=== PATIENT | male | born 1940 | race Caucasian/White ===

== ENCOUNTER 2022-03-27 03:13 | Inpatient (IN) ==
[2022-03-27] MEDS ORDERED: SODIUM CHLORIDE 0.9% 500 ML IV STA (03:30)
--- NOTE | 2022-03-27 03:34 | Emergency Department Note ---
Impression & Plan Liver lesion ADMIT ED Provider Note HPI: The patient is an 81-year-old gentleman with distant history of non-Hodgkin's lymphoma, he has not been on chemo or radiation therapy for approximately the past 10 years according to the patient, presents the emergency department chief complaint of lower abdominal pain. Patient states he was also having some difficulty voiding today as he stated he did not feel that he had to go as much as he normally has to. Patient states he had lab work done yesterday at [facility] that showed an elevated creatinine 1.4 as well as a transaminitis and elevated bilirubin. He states he has had fatigue for about the past 10 days. He has further work-up pending as an outpatient for this. Patient denies any vomiting, denies any diarrhea, on arrival here to the ED he is hemodynamically stable, he is afebrile on arrival. ROS: -GI: Lower abdominal pain -: Decreased urinary frequency *10 point review systems was conducted and is otherwise negative unless stated above *Outpatient medications and allergy history reviewed PE: General: Alert HEENT: Normocephalic, trachea midline Eyes: Extraocular eye movement is intact, no scleral erythema Pulmonary: Clear to auscultation bilaterally, no wheezing Cardio: Regular rate and rhythm GI: Abdomen is soft, nontender, there is mild tenderness diffusely to palpation in the abdomen, more significant in the bilateral lower quadrants and right upper quadrant area, there is no guarding or rigidity : No suprapubic tenderness MSK: No evidence of trauma or malformation of the extremities, no edema Skin: No evidence of rash Neuro: Alert, no focal deficits Psychiatric: Cooperative potline monitor: - An order was placed for continuous cardiac monitoring - Patient was noted to be in sinus rhythm with a rate of 80 Interventions provided in ED: -IV fluid bolus, IV ceftriaxone CT ABDOMEN & PELVIS Without Contrast: Enlarged liver with lobular contours suggesting chronic liver disease. Numerous ill-defined solid masses throughout the liver, largest 2.8 cm in the right lobe. Appearance is most concerning for metastatic disease. Small amount of perihepa tic fluid and generalized ascites. Minimal bilateral perinephric stranding. No hydronephrosis or hydroureter. Punctate nonobstructing left renal calcification. Superficial left renal cortical cyst. Urinary bladder is contracted with nonspecific wall thickening. Prominent prostate gland. No bowel obstruction or ileus. No evidence for appendicitis. No evidence for diverticulitis. No free fluid. Gallbladder is poorly characterized and without gallstones. No evidence for biliary ductal dilation. Pancreas is unremarkable. Spleen is unremarkable. No abdominal aortic aneurysm. Atherosclerotic vascular calcifications. Spine degenerative changes. Radiologist: Brain Calderon M.D. CT CHEST Without Contrast: No acute abnormality of the chest. No prior study available. No evidence for infiltrate/pneumonia. No lung mass or nodule. No thoracic aortic aneurysm. Atherosclerotic vascular calcifications. Heart is normal size. No pericardial fluid or thickening. No pleural effusion or pneumothorax. No acute fracture is identified. Minimal likely chronic mid thoracic spine wedge compression deformities. Multiple old left rib fractures. Multiple liver masses, see separate CT abdomen pelvis report. Radiologist: Brain Calderon M.D. Medical Decision Making: Patient presented to the emergency department generalized weakness, noted to have transaminitis and acute kidney injury on lab work yesterday, patient also developed some lower abdominal discomfort and does have some right upper quadrant abdominal discomfort on my exam. IV was established, lab work obtained, lab work shows evidence of transaminitis, elevated bilirubin at 3.8, patient also has a leukocytosis greater than 12,000, blood cultures were drawn in the ED. CT imaging of the chest as well as CT imaging of the abdomen pelvis were obtained. Unfortunately CT imaging of the abdomen pelvis does show ev idence of what appeared to be multiple liver lesions consistent with likely metastatic disease. In addition, patient's creatinine is elevated today at 2.62, it was 1.4 just yesterday, he was given IV fluids for this, he was able to give a urine sample and was able to void on his own here, urine does not show obvious infection however CT imaging does suggest bilateral perinephric stranding therefore with leukocytosis patient was given a prophylactic dose of ceftriaxone. CT imaging does not suggest acute gallbladder pathology without any biliary ductal dilation, no evidence of gallstones. Will obtain right upper quadrant ultrasound that is pending at the time of admission. I discussed the above findings with the on-call hospitalist, Dr. Dorsey, patient will be admitted for likely hematology/oncology consultation and further care in regards to his abnormal lab findings and acute kidney injury. Patient is agreement for admission and he was admitted in stable condition. Diagnosis: 1. Metastatic lesions of the liver 2. Transaminitis 3. Acute kidney injury 4. Elevated bilirubin Disposition: Admission Humble Kim DO Emergency Medicine Past Med/Surg History Medical History (Updated 03/27/22 @ 06:01 by Humble Kim DO) GERD (gastroesophageal reflux disease) HLD (hyperlipidemia) HTN (hypertension) Surgical History (Updated 07/27/19 @ 16:21 by Brain Orellana) H/O eye surgery Hx of tonsillectomy Family History (Updated 07/27/19 @ 16:21 by Brain Orellana) Other Cancer Denies family history of Prostate cancer Social History (Updated 07/27/19 @ 16:22 by Brain Orellana) Smoking Status: Former smoker Hx Alcohol Use: Yes marital status: current occupational status: retired Feels Safe at Home: Yes Allergies Allergies Allergy/AdvReac Type Severity Reaction Status Date / Time No Known Allergies Allergy Unverified 05/24/10 13:56 Home Meds Home Medications Medication Instructions Recorded Confirmed atorvastatin 10 mg tablet mg PO 07/27/19 07/27/19 bimatoprost 0.01 % eye drops 1 drops ophthalmic (eye) 07/27/19 07/27/19 dorzolamide 2 % eye drops ophthalmic (eye) 07/27/19 07/27/19 losartan 100 mg tablet mg PO 07/27/19 07/27/19 omeprazole 20 mg capsule,delayed mg PO 07/27/19 07/27/19 release Previous Rx's Medication Instructions Recorded terazosin 5 mg capsule 5 mg PO DAILY #90 caps 04/12/21 Results & Data (ED) Vital Signs Vital Signs - 24 hr 03/27/22 03:14 Temperature 36.4 C L Temperature Source Temporal Artery Scan Pulse Rate 82 Pulse Rhythm Regular Pulse Strength Normal Respiratory Rate 18 Respiratory Effort / Characteristics Non-Labored Spontaneous Respiratory Depth Normal Respiratory Pattern Regular Blood Pressure 125/68 Blood Pressure Mean 87 Blood Pressure Position Sitting Pulse Oximetry 96 Oxygen Delivery Method Room Air Sepsis Recent Fever Within 48 Hours No Sepsis New/Unexplained Change in Mental Status No Sepsis Action Taken by Nursing No Action Required Laboratory Data Result diagrams: 03/27/22 03:06 03/27/22 03:06 Lab Results 03/27/22 03/27/22 03/27/22 Range/Units 03:06 03:06 03:06 WBC 12.42 H (4.8-10.8) K/ul RBC 4.42 L (4.63-6.08) M/uL Hgb 13.4 L (14.0-18.0) g/dl Hct 38.2 L (40.1-51.0) % MCV 86.4 (80.0-100.0) fL MCH 30.3 (25.0-34.0) pg MCHC 35.1 (32.0-36.0) g/dL RDW Std Deviation 50.2 H (36.4-46.3) fL RDW Coeff of Ryan 16.3 H (11.5-14.5) % Plt Count 251 (130-400) K/uL MPV 10.1 (9.4-12.4) fL Immature Gran % (Auto) 0.9 % Neut % (Auto) 80.8 % Lymph % (Auto) 6.3 % [place] % (Auto) 9.8 % Eos % (Auto) 1.6 % Baso % (Auto) 0.6 % Neut # (Auto) 10.03 H (1.4-6.5) K/uL Lymph # (Auto) 0.78 L (1.2-3.4) K/uL [place] # (Auto) 1.22 H (0.24-0.82) K/uL Eos # (Auto) 0.20 (0-0.50) K/uL Baso # (Auto) 0.08 (0-0.2) K/uL Immature Gran # (Auto) 0.11 H (0.00-0.02) K/uL PT 12.7 H (9.0-12.0) Seconds INR 1.2 H (0.9-1.1) Sodium 134 L (136-145) mmol/L Potassium 4.4 (3.5-5.1) mmol/L Chloride 101 (98-107) mmol/L Carbon Dioxide 20 L (21-32) mmol/L Anion Gap 13 H (3-11) BUN 51 H (6-23) mg/dl Creatinine 2.62 H (0.6-1.4) mg/dl Est Cr Clr Drug Dosing 26.8 ml/min Est GFR ( Amer) 25.6 ml/min Est GFR (Non-Af Amer) 22.1 ml/min BUN/Creatinine Ratio 19.5 (10-20) Glucose 115 H (70-99(Fasting)) mg/dl Calcium 9.1 (8.5-10.1) mg/dl Total Bilirubin 3.8 H (0.2-1.0) mg/dl AST 178 H (13-39) U/L ALT 127 H (7-52) U/L Alkaline Phosphatase 408 H (34-104) U/L Total Protein 6.5 (6.0-8.3) gm/dl Albumin 3.3 L (3.4-5.0) gm/dl Globulin 3.2 (2.5-4.0) gm/dl Albumin/Globulin Ratio 1.0 (0.9-2) Lipase 135 H (11-82) U/L Urine Color Urine Appearance (Clear) Urine pH (4.5-7.5) Ur Specific [place] (1.000-1.030) Urine Protein (Negative) Urine Glucose (UA) (Negative) Urine Ketones (Negative) Urine Blood (Negative) Urine Nitrite (Negative) Urine Bilirubin (Negative) Urine Urobilinogen (Negative) Ur Leukocyte Esterase (Negative) 03/27/22 Range/Units 05:16 WBC (4.8-10.8) K/ul RBC (4.63-6.08) M/uL Hgb (14.0-18.0) g/dl Hct (40.1-51.0) % MCV (80.0-100.0) fL MCH (25.0-34.0) pg MCHC (32.0-36.0) g/dL RDW Std Deviation (36.4-46.3) fL RDW Coeff of Ryan (11.5-14.5) % Plt Count (130-400) K/uL MPV (9.4-12.4) fL Immature Gran % (Auto) % Neut % (Auto) % Lymph % (Auto) % [place] % (Auto) % Eos % (Auto) % Baso % (Auto) % Neut # (Auto) (1.4-6.5) K/uL Lymph # (Auto) (1.2-3.4) K/uL [place] # (Auto) (0.24-0.82) K/uL Eos # (Auto) (0-0.50) K/uL Baso # (Auto) (0-0.2) K/uL Immature Gran # (Auto) (0.00-0.02) K/uL PT (9.0-12.0) Seconds INR (0.9-1.1) Sodium (136-145) mmol/L Potassium (3.5-5.1) mmol/L Chloride (98-107) mmol/L Carbon Dioxide (21-32) mmol/L Anion Gap (3-11) BUN (6-23) mg/dl Creatinine (0.6-1.4) mg/dl Est Cr Clr Drug Dosing ml/min Est GFR ( Amer) ml/min Est GFR (Non-Af Amer) ml/min BUN/Creatinine Ratio (10-20) Glucose (70-99(Fasting)) mg/dl Calcium (8.5-10.1) mg/dl Total Bilirubin (0.2-1.0) mg/dl AST (13-39) U/L ALT (7-52) U/L Alkaline Phosphatase (34-104) U/L Total Protein (6.0-8.3) gm/dl Albumin (3.4-5.0) gm/dl Globulin (2.5-4.0) gm/dl Albumin/Globulin Ratio (0.9-2) Lipase (11-82) U/L Urine Color Dark Yellow Urine Appearance Turbid A (Clear) Urine pH 5.0 (4.5-7.5) Ur Specific [place] 1.014 (1.000-1.030) Urine Protein 2+ H (Negative) Urine Glucose (UA) Negative (Negative) Urine Ketones Trace H (Negative) Urine Blood Negative (Negative) Urine Nitrite Negative (Negative) Urine Bilirubin 1+ H (Negative) Urine Urobilinogen Negative (Negative) Ur Leukocyte Esterase Trace H (Negative) Administered Medications Discontinued Medications Sodium Chloride (Nss) 500 mls @ 999 mls/hr IV .Q31M STA Stop: 03/27/22 04:00 Last Infusion: 03/27/22 04:35 Dose: 0 mls/hr Documented By: Admin: 03/27/22 03:47 Dose: 999 mls/hr Documented By: JOHANA Discharge Plan Visit Data Chief Complaint: Unable to Void Stated Complaint: UNABLE TO VOID, LOWER ABDOMINAL PAIN ED Provider: Humble Kim Discharge Problem: Liver lesion Forms Stand Alone Forms: [facility] Prescriptions Prescriptions: No Action terazosin 5 mg capsule 5 mg PO DAILY Qty: 90 3RF Rx Instructions: take at bedtime dorzolamide 2 % drops OP losartan 100 mg tablet PO [place] 0.01 % drops 1 drops OP omeprazole 20 mg capsule,delayed release(DR/EC) PO atorvastatin 10 mg tablet PO Referrals Referrals: Madelin Sandoval MD [Primary Care Provider] -
[2022-03-27 04:03] LABS: Basophils # (auto) 0.08 K/uL (0-0.2); Basophils % (auto) 0.6 %; Eosinophils % (auto) 1.6 %; Hematocrit (blood only) 38.2 % (40.1-51.0); Hemoglobin 13.4 g/dl (14.0-18.0); Immature Granulocytes # (auto) 0.11 K/uL (0.00-0.02); Immature Granulocytes % (auto) 0.9 %; Lymphocytes # (auto) 0.78 K/uL (1.2-3.4); Lymphocytes % (auto) 6.3 %; Mean Corpuscular Hemoglobin 30.3 pg (25.0-34.0); Mean Corpuscular Hgb Conc 35.1 g/dL (32.0-36.0); Mean Corpuscular Volume 86.4 fL (80.0-100.0); Mean Platelet Volume 10.1 fL (9.4-12.4); Monocytes # (auto) 1.22 K/uL (0.24-0.82); Monocytes % (auto) 9.8 %; Neutrophils # (auto) 10.03 K/uL (1.4-6.5); Neutrophils % (auto) 80.8 %; Platelet Count 251 K/uL (130-400); RDW Coefficient of Variation 16.3 % (11.5-14.5); RDW Standard Deviation 50.2 fL (36.4-46.3); Red Blood Count 4.42 M/uL (4.63-6.08); White Blood Count 12.42 K/ul (4.8-10.8)
[2022-03-27 04:24] LABS: INR 1.2 (0.9-1.1); Prothrombin Time 12.7 Seconds (9.0-12.0)
[2022-03-27 04:37] LABS: Albumin Level 3.3 gm/dl (3.4-5.0); BUN Creatinine Ratio 19.5 (10-20); Bilirubin,Total 3.8 mg/dl (0.2-1.0); Calcium 9.1 mg/dl (8.5-10.1); Creatinine Clr Calc Pharmacy 26.8 ml/min; Est GFR (African American) 25.6 ml/min; Est GFR (Non-African American) 22.1 ml/min; Globulin 3.2 gm/dl (2.5-4.0); Potassium 4.4 mmol/L (3.5-5.1); Total Protein 6.5 gm/dl (6.0-8.3)
[2022-03-27 05:32] LABS: Appearance Urine Turbid (Clear); Blood Urine Negative (Negative); Color Urine Dark Yellow; Epithelial Cell Urine Auto >30 /lpf (0-5); Glucose Urine UA Negative (Negative); Ketones Urine Trace (Negative); Leukocyte Esterase Urine Trace (Negative); Nitrite Urine Negative (Negative); Protein Urine 2+ (Negative); RBC Urine Automated 0-4 /hpf (0-4); Specific Gravity Urine 1.014 (1.000-1.030); Urobilinogen Urine Negative (Negative)
[2022-03-27 05:38] LABS: Bilirubin Urine 1+ (Negative)
[2022-03-27] MEDS ORDERED: cefTRIAXone SODIUM 1,000 MG/50 ML BAG IV STA (06:01)
[2022-03-27 06:04] LABS: Bacteria Urine Automated 1+ (Negative)
--- NOTE | 2022-03-27 07:20 | Ultrasound Report ---
ULTRASOUND RIGHT UPPER QUADRANT ABDOMEN CLINICAL HISTORY: Elevated hepatic transaminases. COMPARISON STUDY: Abdominal CT performed earlier the same day 03/27/2022. TECHNIQUE: Real-time, grayscale, and color flow sonography of the right upper quadrant of the abdomen was performed. Images are reviewed in the transverse and longitudinal planes. FINDINGS: Liver: The liver is enlarged, cirrhotic in morphology, and heterogeneous in echotexture. There is nod ularity of the hepatic surface contour. There are numerous infiltrative hepatic mass lesions measurin g up to 3.2 cm. There is no intrahepatic biliary ductal dilatation. The main portal vein is patent. Gallbladder: No shadowing gallstones are identified. Mild gallbladder wall thickening is nonspecific and likely related to adjacent hepatocellular disease. There is no pericholecystic fluid. A sonograph ic Moreland's sign is reportedly absent. The common bile duct measures up to 0.6 cm in diameter. Pancreas: Visualized portions of the pancreatic head and body are normal in appearance. Right kidney: Survey images of the right kidney demonstrate normal size and echotexture. There is no hydronephrosis. Ascites: None. IMPRESSION: 1. No acute sonographic abnormality is seen in the right upper quadrant. No gallstones are identified . 2. The liver is enlarged and cirrhotic in morphology. 3. There is evidence of multifocal hepatic metastatic disease, with numerous infiltrative lesions see n throughout the liver. ACT 112: Negative or not required by law. Electronically signed by: oDv Weeks M.D. 03/27/2022 7:18 AM
--- NOTE | 2022-03-27 07:48 | CT Scan Report ---
CT chest diagnostic wo con CT DOSE: 1717.41 mGy.cm CLINICAL HISTORY: 81 years-old Male with upper abd pain, hx of lymphoma, eval for any mass. Acute ch est and abdominal pain in a patient with history of lymphoma TECHNIQUE: Multiaxial CT images of the chest were performed without contrast. A dose lowering techni que was utilized adhering to the principles of ALARA. COMPARISON: CT abdomen and pelvis of same day, PET CT 02/11/2007 FINDINGS: Subcentimeter thyroid nodules. No lymphadenopathy identified. The heart is normal in size w ithout pericardial effusion. Moderate coronary artery calcifications. Atherosclerosis of the thoracic aorta without aneurysm. Descending thoracic aortic tortuosity. No pneumothorax, pleural effusion, airspace consolidation or overt pulmonary edema. Subsegmental biba silar atelectasis versus scarring. Mild emphysema. Scattered solid pulmonary nodules are noted within the upper lung zone prominent distribution bilaterally measuring up to 4 mm, most of which appear to be new from the prior exam. Central airways are patent. Heterogeneity of the liver with trace perihepatic and marginal nodularity. Innumerable masses are pre sent within the liver measuring up to approximately 3 cm. Trace perisplenic fluid also noted. Mild ch ronic appearing mid thoracic compression deformities. IMPRESSION: 1. Mild emphysema without acute intrathoracic abnormality. 2. Numerous upper lung zone predominant solid pulmonary nodules measure up to 4 mm. Follow-up guideli chela provided below. 3. No lymphadenopathy. 4. Innumerable hepatic masses are suggestive of metastasis. Please refer to the CT abdomen and pelvis study of same day for additional findings. Please refer to below summary of Fleischner criteria recommendations for follow-up of incidental CT n odules (Alex Bowen, Guidelines for management of small pulmonary nodules detected on CT scans: A sta tement from the Fleischner Society, Radiology 237: [phone].) SOLID NODULES Multiple nodules size: <6 mm * Low risk patients: no routine follow-up * high risk patients: optional CT at 12 months Note: newly detected indeterminate nodule in persons 35 years of age or older. * Low risk patients: minimal or absent history of smoking and/or other known risk factors * high risk patients: history of smoking or of other known risk factors (e.g. first degree relative with lung cancer, or exposure to asbestos, radon, uranium) * if a nodule up to 8 mm is partly solid or is ground glass further follow-up is required after 24 m onths to exclude possible slow growing adenocarcinoma (JOCY) ACT 112: Negative or not required by law. Electronically signed by: Julio Orr M.D. 03/27/2022 7:47 AM
--- NOTE | 2022-03-27 08:05 | CT Scan Report ---
CT SCAN OF THE ABDOMEN AND PELVIS WITHOUT IV CONTRAST CLINICAL HISTORY: Generalized abdominal pain. Elevated hepatic transaminases. Renal insufficiency. COMPARISON STUDY: Renal ultrasound dated 06/09/2008. TECHNIQUE: CT scan of the abdomen and pelvis is performed from the lung bases to the proximal femora. Images are reviewed in the axial, sagittal, and coronal planes. IV contrast was not administered for this examination due to poor renal function. Note that the examination is suboptimal without oral an d IV contrast. A dose lowering technique was utilized adhering to the principles of ALARA. Compared F INDINGS: Lung bases: The heart is normal in size and without pericardial effusion. The lung bases are clear no ting bibasilar scarring/atelectasis. A small hiatal hernia is noted. Liver: The unenhanced liver is enlarged, measuring 22.8 cm in length. The liver is struck morphology and heterogeneous in attenuation with nodularity of the surface contour. There is evidence of extensi ve/diffuse hepatic metastatic disease with numerous mass lesions seen throughout the liver. These sonia sure up to 3.3 cm. There is no intrahepatic biliary ductal dilatation. Gallbladder: Unremarkable. Spleen: Normal in size and attenuation. Pancreas: Infiltration and fluid is seen around the distal pancreatic body and tail. The unenhanced p ancreas is otherwise grossly unremarkable. The pancreas duct is normal in caliber and no organized pe ripancreatic fluid collection is seen. Adrenal glands: Unremarkable. Kidneys: The unenhanced kidneys are normal in size and without hydronephrosis. There is a 4 mm nonobs tructing left renal calculus. No right renal calculi are identified. A 2.9 cm exophytic lesion arisin g from the left lower pole meets CT criteria for simple cyst. Abdominal vasculature: The abdominal aorta is normal in course and caliber. Bowel: There is mild colonic diverticulosis without CT evidence of acute diverticulitis. No bowel obs truction is seen. Mild fecal retention is noted throughout the colon. The appendix is normal visuali zed. Peritoneum: There is trace perihepatic and pelvic ascites. No intraperitoneal free air is seen. There is a fat-containing umbilical hernia. Lymphadenopathy: There are mildly enlarged retroperitoneal lymph nodes. The largest node is in the le ft periaortic region on image #192 and measures 13 mm in short axis. Pelvic viscera: The prostate gland is markedly enlarged and heterogeneous noting medial lobe hypertro phy. The bladder is decompressed. The wall is thickened/trabeculated indicating chronic outlet obstru ction. There are bilateral fat-containing inguinal hernias. Skeletal structures: The skeletal structures are osteopenic. There is mild lumbosacral spondylosis. T here is a moderate chronic-appearing compression deformity of T9. No lytic or blastic lesions are see n. There are healed left-sided rib fractures. IMPRESSION: 1. Question acute pancreatitis. Correlate with clinical findings and serum amylase/lipase levels. 2. The liver is enlarged, heterogeneous, and cirrhotic in morphology. 3. There is evidence of multifocal hepatic metastatic disease. 4. Mildly enlarged intraperitoneal lymph nodes are pathologically determined. Metastatic disease is n ot excluded. 5. Trace abdominopelvic ascites. 6. Left-sided of lithiasis. 7. Additional findings as above. ACT 112: Negative or not required by law. Electronically signed by: Dov Weeks M.D. 03/27/2022 8:03 AM
--- NOTE | 2022-03-27 08:43 | History and Physical Report ---
DATE OF ADMISSION: 03/27/2022. CHIEF COMPLAINT: Abdominal discomfort, difficulty urination and elevated LFTs. HISTORY OF PRESENT ILLNESS: This is an 81-year-old male with past medical history significant for hyperlipidemia, prediabetes, hypertension, non-Hodgkin's lymphoma diagnosed in both groins one year apart in 2005 and 2006, status post chemoradiation, completed chemo in 2006 and seems to be in remission, now presents because of ongoing gurgling feeling in his abdomen since last two to three weeks. In last one to two weeks he is having right upper quadrant abdominal pain.He went to PCP yesterday and was found to have low blood pressure, Hyzaar was changed to losartan and labs were done.Labs showed creatinine is 1.4 which was normal recent past and has elevated LFTs, advised to hold the losartan for a few days and ultrasound was ordered for tomorrow and planned for close followup. But patient says for the last couple of days his urination decreased and he woke up at 2:00 a.m. and could not micturate, so he decided to come to the ER. In the ER, his creatinine is 2.6, BUN is 51. Total bilirubin 3.8, AST 178, ALT 127, alkaline phosphatase 408. Urinalysis, +[address] abdomen and pelvis preliminary report showing liver lesions and possible perinephric stranding so we are called for admission. Currently, patient is resting comfortably and hemodynamically stable. in room. Somewhat hard of hearing. Denies any headache. No blurred visions, no earache, no runny nose, no sore throat, no cough, no difficulty swallowing. Appetite is okay. No recent weight gain or weight loss. No chest pain.He is getting short of breath on exertion, feeling weak and fatigued. No nausea, no vomiting, no diarrhea or constipation. Denies any blood in stool or black stools. No swelling in the legs, otherwise ambulating okay. The patient is also having night sweats for the last 1 month. ALLERGIES: No known drug allergies. PAST MEDICAL HISTORY: As mentioned above. PAST SURGICAL HISTORY: Colonoscopy, removal of the left groin lymph node biopsy, removal of right groin node, tonsillectomy, cataract surgeries, corrective eye surgery. MEDICATIONS: The patient is on atorvastatin 10 mg p.o. daily, Rocklatan one drop ophthalmic at bedtime, losartan 50 mg p.o. daily, Combigan ophthalmic solution one drop ophthalmic b.i.d., omeprazole 20 mg p.o. daily, terazosin 5 mg p.o. daily. FAMILY HISTORY: Significant for mother had breast cancer, father had COPD, brother has mental disorder; mother has thyroid disorder. SOCIAL HISTORY: . Quit smoking in 2005. Alcohol occasional. No drug use. REVIEW OF SYSTEMS: As per HPI. Rest of the review of systems is negative. PHYSICAL EXAMINATION: GENERAL: The patient is of moderate build, not in acute distress. VITAL SIGNS: Temperature 37.1, pulse 81, respiratory rate 20, blood pressure 106/61, oxygen 95% on room air. HEENT: Pupils equal, round and reactive to light. Oral mucosa moist. NECK: No JVD, no neck masses. CARDIOVASCULAR: S1 and S2 heard. Regular rate and rhythm. No murmur, no gallop. RESPIRATORY SYSTEM: Normal AP diameter. No accessory muscle use. No wheezing, no crackles. ABDOMEN: Soft, bowel sounds present. Mild abdominal diffuse discomfort more than the right upper quadrant. No guarding, no rigidity, no distention. CENTRAL NERVOUS SYSTEM: Cranial nerves II-XII grossly intact, nonfocal. EXTREMITIES: No edema, no erythema. LABORATORY DATA: WBC 12.4, hemoglobin 13.4, hematocrit 38.2, platelets 251. PT 12.7, INR 1.2. Sodium 134, potassium 4.4, chloride 101, bicarbonate 20, BUN 51, creatinine 2.62, serum glucose 115, calcium 9.1, total bilirubin 3.8, AST 178, ALT 127, alkaline phosphatase 408. Lipase 135. Urinalysis, +2 protein, trace ketones, trace leukocyte esterase, +1 bacteria. SARS-CoV-2 rapid test negative. IMAGING DATA: CT chest, preliminary report, no evidence of infiltrate or pneumonia. No lung mass or nodule, multiple liver masses. CT abdomen and pelvis without contrast, preliminary report enlarged liver with lobular contour suggesting chronic liver disease. Numerous ill-defined solid masses throughout the liver, largest 2.8 cm right lower lobe, apparently this is most consistent with metastatic disease. Small amount of perihepatic fluid and gas and generalized ascites and minimal bilateral perinephric stranding. No hydronephrosis or hydroureter. Urinary bladder is contracted with nonspecific wall thickening, prominent prostate gland. No bowel obstruction or ileus. No evidence of appendicitis, no evidence of diverticulitis. No free fluid. Gallbladder is poorly visualized and without gallstones, no evidence of biliary ductal dilatation. Pancreas unremarkable. Spleen is unremarkable. No abdominal aortic aneurysm. Gallbladder ultrasound results are pending. ASSESSMENT AND PLAN: This is an 81-year-old male with past medical history significant for Hodgkin's lymphoma diagnosed in [id number] status post chemoradiation completed in 2006, since then in remission, hyperlipidemia, prediabetes, hypertension, presents with ongoing abdominal discomfort in the last couple of weeks, feeling weak and fatigued. Saw family doctor yesterday and because the blood pressure is low, changed the blood pressure medications from Hyzaar to losartan and the lab work was done showing increased LFTs, and worsening creatinine of 1.4. Advised to hold the losartan and get the abdominal ultrasound and also close followup, but the patient is also having difficulty micturating in last 2 days and last night, he could not micturate, so he came to the ER and found to have elevated LFTs and liver lesions. 1. Elevated LFTs, liver lesions, history of Hodgkin's lymphoma status post chemoradiation in 2006 since then in remission. We will follow the final report of the imaging studies. We will follow gallbladder ultrasound . Consult GI ,Will follow the repeat labs. Await GI input. 2. Acute kidney injury. Creatinine of 2.62. Holding losartan. We will avoid nephrotoxic agents. Creatinine was 0.8 last month. Getting gentle fluids. We will follow the repeat labs. 3. Urinary tract infection, possible pyelonephritis, started on Rocephin. We will follow the cultures. Likely contributing in patient's symptoms. 4. Questionable urinary retention. The bladder is nondistended on CAT scan, . Follow the bladder scans. Continue his home terazosin and if the bladder scan shows urinary retention place a Jewell catheter and consult Urology. 5. Prediabetes: Follow HbA1c level. 6. Hyperlipidemia. Hold statin because of elevated LFTs. 7. Hypertension., currently holding losartan. Placed on IV hydralazine p.r.n. 8. Deep venous thrombosis prophylaxis: Heparin subcutaneously. Hold heparin for any procedures. DISPOSITION: Closely monitor in the [employer] tele. PT/OT prior to discharge. Social service to help with discharge planning. Job ID: [id number] [facility]
[2022-03-27 09:44] LABS: Phosphorus 3.6 mg/dl (2.5-4.9); Uric Acid 12.8 mg/dl (2.6-7.2)
[2022-03-27] MEDS ORDERED: NON-FORMULARY MEDICATION (Brimonidine-Timolol 0.2-0.5 % drops) OPB SCH (09:55)
[2022-03-27] MEDS ORDERED: SODIUM CHLORIDE 0.9% 1000ML 1,000 ML IV SCH (09:55)
[2022-03-27] MEDS ORDERED: NITROGLYCERIN SL 0.4 MG/TAB TAB SL PRN (09:55)
[2022-03-27] MEDS ORDERED: POLYETHYLENE (MIRALAX) 17 GM PACK PO PRN (09:55)
[2022-03-27] MEDS ORDERED: cefTRIAXone SODIUM 1,000 MG in DEXTROSE 5% 50 ML IV ONE (10:15)
[2022-03-27] MEDS ORDERED: cefTRIAXone SODIUM 2,000 MG in DEXTROSE 5% 50 ML IV ONE (10:15)
--- NOTE | 2022-03-27 10:53 | Gastrointestinal Consultation ---
Date of Consultation March 27, 2022 Assessment & Plan (1) Liver lesion: (2) Elevated LFTs: Pt is a 81 yo male w hx of non Hodgkins lymphoma s/p chemoradiation completed in 2006, who presented w c/o upper abd pain symptoms and noted to have LUIS EDUARDO, elevated LFTs. Imaging studies showed signs of numerous pulmonary nodules, hepatic masses suggestive of metastatic processes, liver also appears enlarged, heterogeneous and possibly cirrhotic in morphology. There are mildly enlarged intraperitoneal lymph nodes and trace abdominopelvic ascites noted.? Acute pancreatitis. No signs of biliary obstruction noted. - IVF hydration w LR - Obtain MRI liver w contrast when GFR >30 - LUIS EDUARDO management per primary team - Recommend Heme/Onc consultation - Trend LFTs - Avoid ETOH, no APAP >2g a day if needed - Pls recall GI PRN or if need assistance with liver mass biopsy via EUS Supervising Physician Co-Signing Physician Notes I have seen and examined patient with KENDY Kessler whose note reflects our findings and plan. History of Present Illness Reason for Consultation: Elevated LFTs, liver lesions on CT scan Requesting Physician: Dr. Prashant Stone Attending Physician: Dr. Ana Mac History of Present Illness Patient is an 81 years old male with past medical history is including non- Hodgkin's lymphoma status post chemoradiation in 2006, was in remission, who presented to the ED with complaints of ongoing discomfort in his upper abdominal areas and also inability to urinate. He is been seeing his PCP for right upper quadrant abdominal pain, was found to have hypotension and also labs showing elevated LFTs, signs of LUIS EDUARDO. Work-up in the ED today showed that he does have mild leukocytosis, mild anemia, creatinine now up to 2.6, LFTs: Bilirubin 3.8, AST 178, ALT 127, alkaline phosphatase 408, lipase 135. Imaging studies including CT chest, abdomen pelvis, also gallbladder ultrasound showed signs of numerous pulmonary nodules, hepatic masses suggestive of metastatic processes, liver also appears enlarged, heterogeneous and possibly cirrhotic in morphology. There are mildly enlarged intraperitoneal lymph nodes and trace abdominopelvic ascites noted.? Acute pancreatitis. On examination in ER bed, patient denies any abdominal pain, although when right upper quadrant abdominal area is palpated he is uncomfortable, he denies any fevers, chills, jaundice, nausea or vomiting. States that he just had bladder scan and has low urine volume, no indication for catheterization at this point. He denies regular uses of APAP. No tobacco or illicit drugs. Drink "a couple" ounces of scotch w water nightly Denies family hx of liver diseases or GI malignancy Allergies Allergy/AdvReac Type Severity Reaction Status Date / Time No Known Allergies Allergy Unverified 05/24/10 13:56 Home Medications Medication Instructions Recorded Confirmed Type atorvastatin 10 mg tablet 10 mg PO DAILY 07/27/19 07/27/19 History omeprazole 20 mg capsule,delayed 20 mg PO DAILY 07/27/19 03/27/22 History release terazosin 5 mg capsule 5 mg PO DAILY #90 caps 04/12/21 03/27/22 Rx brimonidine 0.2 %-timolol 0.5 % 1 drp OPB BID 03/27/22 03/27/22 History eye drops netarsudil 0.02 %-latanoprost 1 drp OPB HS 03/27/22 03/27/22 History 0.005 % eye drops (Rocklatan) Patient History Medical History GERD (gastroesophageal reflux disease) HLD (hyperlipidemia) HTN (hypertension) Surgical History H/O eye surgery Hx of tonsillectomy Family History Other Cancer Denies family history of Prostate cancer Social History Smoking Status: Former smoker Hx Alcohol Use: Yes Alcohol type: hard liquor Hx Substance Use: No Preferred Language: Cape Verdean Respiratory Manager Required: No Beliefs That Will Affect Care: None marital status: Current Living Situation: Spouse current occupational status: retired Feels Safe at Home: Yes Assistive Devices: None Review of Systems Review of Systems: All systems reviewed & are unremarkable except as noted in HPI & below Physical Exam Constitutional: WD/WN, vitals as above well groomed, cooperative and comfortable Eyes: PERRL, conjunctivae normal, anicteric sclerae ENMT: external ear and nose normal, oropharynx normal Respiratory: normal respiratory effort, lungs clear to auscultation Cardiovascular: RRR, no murmur, no edema Gastrointestinal (Abdomen): RUQ TTP, soft, hypoactive Skin: no rashes, warm and dry no jaundice Neurologic: Motor/Sensory: no asterixis Psychiatric: A+Ox3, euthymic affect Lymphatic: no lymphedema Results & Data ([facility]) Vital Signs (Past 12 Hours) Vital Signs Temp Pulse Pulse Resp BP BP Pulse Ox 03/27/22 10:00 36.8 C 95 H 18 116/74 96 03/27/22 08:00 36.6 C 78 18 110/68 94 03/27/22 06:43 37.1 C 81 20 106/61 95 03/27/22 03:14 36.4 C L 82 18 125/68 96 O2 Del Method 03/27/22 10:00 Room Air 03/27/22 08:00 03/27/22 06:43 Room Air 03/27/22 03:14 Room Air
[2022-03-27] MEDS ORDERED: hydrALAZINE HCL 20 MG/ML VIAL IV PRN (10:57)
[2022-03-27] MEDS: PANTOprazole 40 MG TAB PO SCH (12:19)
--- NOTE | 2022-03-27 12:44 | Consultation Report ---
NEPHROLOGY CONSULTATION NOTE DATE OF SERVICE: 03/27/2022. REASON FOR CONSULTATION: Acute renal failure. HISTORY OF PRESENT ILLNESS: The patient is an 81-year-old male who was [facility] of abdominal discomfort, lack of urine and abnormal LFTs. He was found to have abnormal kidney fun ction with a creatinine of 2.62. He had a creatinine of 0.9 just 1 month ago and does not recall hav ing any history of abnormal kidney function. His liver function tests were also abnormal. The patie nt has been eating and drinking normally though for the last few days and denies having any nausea, v omiting, diarrhea, fever, chills, rigors, shortness of breath or really any symptoms for a long time. He does have some issues with enlarged prostate and has seen urologist in the past. The patient gregg s a history of non-Hodgkin's lymphoma, status post chemoradiation completed in 2006. He also has mul tiple pulmonary nodules as well as hepatic masses suggestive of metastatic process. There are also m ultiple enlarged intraperitoneal lymph nodes. The patient has returned to have Ringer's lactate. Hi s blood pressure is within normal range and he is not in any overt respiratory distress. CT abdomen did not show any hydronephrosis and bladder was not distended. Thereby, he is ruling out hydronephro sis or bladder outlet obstruction as the cause of lack of urine. PAST MEDICAL AND SURGICAL HISTORY: Includes hyperlipidemia, prediabetes, hypertension, non-Hodgkin's lymphoma diagnosed in 2005, status post chemoradiation completed in 2006 and in remission, colonosco py, removal of the left groin lymph node with biopsy, tonsillectomy, cataract surgery. ALLERGIES: None. MEDICATIONS: At home include atorvastatin, eyedrops, losartan 50 daily, omeprazole 20 daily, terazos in 5 daily. FAMILY HISTORY: Negative for renal disease or dialysis. SOCIAL HISTORY: , quit smoking in 2005. Occasional alcohol, no drugs. REVIEW OF SYSTEMS: As detailed in HPI. He had right upper quadrant abdominal pain and was concerned about low urine output. Also had low blood pressure at the PCP office yesterday. PHYSICAL EXAMINATION: GENERAL: Elderly white male who is of moderate build. He is not in any acute respiratory distress. VITAL SIGNS: Blood pressure is 116/74, pulse rate 94, temperature 36.8, 96% on room air. HEENT: Mucous membrane is moist. NECK: Supple. No jugular venous distention. CHEST: Bilaterally clear to auscultation. CARDIOVASCULAR: S1 and S2, regular. ABDOMEN: Soft, slightly tender in the right upper quadrant. EXTREMITIES: Show trace edema bilaterally. LABORATORY TEST: One month ago, he had a completely normal creatinine of 0.9. This morning, he had a creatinine of 2.62. Sodium is 134, potassium is 4.4, BUN 51, creatinine . Uric acid is very e levated at 12.8. Liver enzymes abnormal, lipase 135, albumin 3.3. CT abdomen and pelvis as well as CT chest was reviewed and shows innumerable hepatic masses suggestive of metastasis. Also lots of so lid pulmonary nodules; however, kidney does not show hydronephrosis and bladder is not distended with urine. ASSESSMENT AND PLAN: An 81-year-old male admitted with right upper quadrant abdominal pain and acute renal failure as well as abnormal liver enzymes and imaging is very concerning for widespread metast asis. Acute renal failure: As stated earlier, this is very recent as 1 month ago, he had a completely norm al kidney function of 0.9 creatinine, but now it is . He has imaging very concerning for widesp read metastasis and also has very elevated uric acid level. We do have to make sure he does not have tumor lysis syndrome. I would also like to add hematology input regarding this. For the time being , I would give him IV hydration, but on exam, he does not really appear to be that volume depleted, b ut he was found to have low blood pressure a few days ago at PCP's office and he was still getting lo sartan and hydrochlorothiazide, so he may have had some degree of ATN from hypotension, which he had a few days ago. The rate of recovery of his kidney function in the coming days will be able to diffe rentiate. For the time being, I would continue with IV fluid. He is written to have Ringer's lactate , which he can have. I would hold XAVIER inhibitor, ARB, diuretics for the time being, I would consider adding rasburicase if available in the formulary. If not, at least allopurinol to lower the uric aci d. Continue daily labs. Thank you very much for the consult. Job ID: [id number]
[2022-03-27] MEDS: LACTATED RINGER'S 1,000 ML IV SCH (12:50)
[2022-03-27] MEDS: BRIMONIDINE TARTRATE 0.2% 5ML OPB SCH ×2 (12:53→20:20)
[2022-03-27] MEDS: TIMOLOL MALEATE 0.5% OP SOLN 5 ML BTL OPB SCH ×2 (12:54→20:21)
[2022-03-27] MEDS ORDERED: allopurinoL 100 MG TAB PO SCH (13:00)
--- NOTE | 2022-03-27 13:03 | Oncology Consultation ---
Date of Consultation March 27, 2022 Assessment & Plan (1) Elevated LFTs: (2) Liver lesion: Plan [place] gentleman with prior history of non-Hodgkin's lymphoma treated more than 10 years ago under the care of Dr. Sandoval of [facility] [place] in [place]. He presented with decreased urination and was found to have LUIS EDUARDO as well as hyperbilirubinemia and transaminitis on labs. Imaging revealed multiple liver lesions as well as liver cirrhosis. -Would recommend checking CEA, CA 19-9 and AFP as this may be helpful in identifying potential primary -Consider obtaining MRCP when renal function improves to assess for biliary blockage -Recommend interventional radiology guided core biopsy of liver lesion to determine primary (can be performed at [facility] or [facility]) -Pathology will determine treatment options as well as overall prognosis. Patient will follow up with Dr. Sandoval of [facility] [place] upon discharge from hospital Thank you for this consult. Oncology will sign off at this time. Please feel free to call if you have any further questions History of Present Illness Reason for Consultation: Liver masses suspicious for malignancy Attending Physician: Prashant Stone MD History of Present Illness [place] gentleman with history of non-Hodgkin's lymphoma for which he received treatment under the care of Dr. Tone Sandoval at [facility] in [place] around 1999 and 10/2006. Patient presented to the ER at [facility] with complaints of decreased urination which was noticed yesterday. He also states that prior to this, he had noticed right lower quadrant abdominal discomfort a couple of weeks ago. He endorses shortness of breath but denies chest pain. Denies nausea, vomiting, diarrhea or weight loss. Endorses constipation. Labs obtained when he arrived at the ER was significant for LUIS EDUARDO with creatinine of 2.6, transaminitis with AST of 178, ALT of 127, alkaline phosphatase of 408 and total bilirubin of 3.8. CT abdomen and pelvis revealed liver cirrhosis as well multiple liver lesions suspicious for metastatic disease. Allergies Allergy/AdvReac Type Severity Reaction Status Date / Time No Known Allergies Allergy Unverified 05/24/10 13:56 Home Medications Medication Instructions Recorded Confirmed Type atorvastatin 10 mg tablet 10 mg PO DAILY 07/27/19 07/27/19 History omeprazole 20 mg capsule,delayed 20 mg PO DAILY 07/27/19 03/27/22 History release terazosin 5 mg capsule 5 mg PO DAILY #90 caps 04/12/21 03/27/22 Rx brimonidine 0.2 %-timolol 0.5 % 1 drp OPB BID 03/27/22 03/27/22 History eye drops netarsudil 0.02 %-latanoprost 1 drp OPB HS 03/27/22 03/27/22 History 0.005 % eye drops (Rocklatan) Patient History Medical History GERD (gastroesophageal reflux disease) HLD (hyperlipidemia) HTN (hypertension) Surgical History H/O eye surgery Hx of tonsillectomy Family History Other Cancer Denies family history of Prostate cancer Social History Smoking Status: Former smoker Hx Alcohol Use: Yes Alcohol type: hard liquor Hx Substance Use: No Preferred Language: Kiswahili Engineer First Assistant Required: No Beliefs That Will Affect Care: None marital status: Current Living Situation: Spouse current occupational status: retired Feels Safe at Home: Yes Assistive Devices: None Review of Systems Review of Systems: All systems reviewed & are unremarkable except as noted in Subjective Physical Exam Constitutional: WD/WN, vitals as above Eyes: Scleral icterus Respiratory: normal respiratory effort, lungs clear to auscultation Cardiovascular: RRR, no murmur, no edema Gastrointestinal (Abdomen): normal bowel sounds, soft, nontender, no hepatosplenomegaly Results & Data ([facility]) Vital Signs (Past 12 Hours) Vital Signs Temp Pulse Pulse Resp BP BP Pulse Ox 03/27/22 10:48 03/27/22 10:00 36.8 C 95 H 18 116/74 96 03/27/22 08:00 36.6 C 78 18 110/68 94 03/27/22 06:43 37.1 C 81 20 106/61 95 03/27/22 03:14 36.4 C L 82 18 125/68 96 O2 Del Method 03/27/22 10:48 Room Air 03/27/22 10:00 Room Air 03/27/22 08:00 03/27/22 06:43 Room Air 03/27/22 03:14 Room Air
[2022-03-27 13:15] LABS: Creatinine Urine Random 140.8 mg/dl; Urine Potassium 47.6 mmol/L
[2022-03-27 13:42] LABS: INR 1.3 (0.9-1.1); Partial Thromboplastin Time 27.3 Seconds (21.0-31.0); Prothrombin Time 13.3 Seconds (9.0-12.0)
--- NOTE | 2022-03-27 14:04 | Hospitalist Progress Note ---
Date of Service March 27, 2022 Assessment & Plan (1) Liver lesion: (2) Elevated LFTs: Plan: Patient presented with abdominal discomfort at his primary care office on 03/26. Found to have right upper quadrant fullness on examination and elevated LFTs CT abdomen shows enlarged liver, heterogeneous and cirrhotic in morphology along with multifocal hepatic metastatic disease. Also found to have mildly enlarged intra peritoneal lymph node. Plan; Discussed with oncology; recommend obtaining core needle biopsy of liver mass. Discussed with radiology regarding same; scheduling depending on availability. Most likely today. Also obtain [place] [address] and alpha-fetoprotein. Plan to obtain triple phase liver MRI/MRCP after kidney function improves. He will follow-up with Dr. Sandoval of [facility] oncology after discharge from the hospital. (3) Acute kidney failure: (4) Elevated uric acid in blood: Plan: Baseline creatinine of 0.9 in February. His creatinine up trended to 1.4 and to 2.6 Oliguric with minimal urine output Bladder scan negative for retention. CT abdomen did not show hydronephrosis. His uric acid is elevated to 12.8; no other signs suggestive of tumor lysis syndrome. Discussed with nephrology, oncology and pharmacy. Rasburicase not available in the hospital. Patient to be started on allopurinol 100 mg. Continue on IV fluids. Strict SERGO's and daily BMP. 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 Chronic conditions; Hypertensionlisinoprilhydrochlorothiazide on hold BPHcontinue on terazosin. Admission and Anticipated Discharge Date Admission Date: March 27, 2022 Subjective Patient seen and examined at bedside. He is comfortably lying in the bed; not in any distress. He reports that he has not been making urine. He reports that the abdominal discomfort has improved compared to presentation. Review of Systems Review of Systems: All systems reviewed & are unremarkable except as noted in Subjective Physical Exam Physical Exam: Constitutional: WD/WN, vitals as above, NAD, sitting up in bed, pleasant, conversing easily Respiratory: normal respiratory effort, lungs clear to auscultation, no wheeze, rales, rhonchi. Normal insp/exp effort, no accessory muscle use Cardiovascular: RRR, no murmur, no edema Vessels: no JVD or carotid bruit Chest: normal inspection of chest Abdomen: Hepatomegaly present; soft, nontender. Bowel sound present. Musculoskeletal: no cyanosis or clubbing, extremities motor strength 5/5 Skin: no rashes, warm and dry normal turgor Neurologic: PERRL, EOMI, accommodation nl, no face palsy, no dysarthria CN's II- XI intact bilaterally and moves all extremities Psychiatric: A+Ox3, euthymic affect Lymphatic: no cervical or axillary lymphadenopathy : deferred Results & Data Results & Data ([facility]) Vital Signs (Past 12 Hours) Vital Signs Temp Pulse Pulse Resp BP BP Pulse Ox 03/27/22 10:05 94 H 03/27/22 10:48 03/27/22 10:00 36.8 C 95 H 18 116/74 96 03/27/22 08:00 36.6 C 78 18 110/68 94 03/27/22 06:43 37.1 C 81 20 106/61 95 03/27/22 03:14 36.4 C L 82 18 125/68 96 O2 Del Method 03/27/22 10:05 03/27/22 10:48 Room Air 03/27/22 10:00 Room Air 03/27/22 08:00 03/27/22 06:43 Room Air 03/27/22 03:14 Room Air Laboratory Results Laboratory Results WBC 12.42 K/ul (4.8-10.8) H 03/27/22 03:06 RBC 4.42 M/uL (4.63-6.08) L 03/27/22 03:06 Hgb 13.4 g/dl (14.0-18.0) L 03/27/22 03:06 Hct 38.2 % (40.1-51.0) L 03/27/22 03:06 MCV 86.4 fL (80.0-100.0) 03/27/22 03:06 MCH 30.3 pg (25.0-34.0) 03/27/22 03:06 MCHC 35.1 g/dL (32.0-36.0) 03/27/22 03:06 RDW Std Deviation 50.2 fL (36.4-46.3) H 03/27/22 03:06 RDW Coeff of Ryan 16.3 % (11.5-14.5) H 03/27/22 03:06 Plt Count 251 K/uL (130-400) 03/27/22 03:06 MPV 10.1 fL (9.4-12.4) 03/27/22 03:06 Immature Gran % (Auto) 0.9 % 03/27/22 03:06 Neut % (Auto) 80.8 % 03/27/22 03:06 Lymph % (Auto) 6.3 % 03/27/22 03:06 [place] % (Auto) 9.8 % 03/27/22 03:06 Eos % (Auto) 1.6 % 03/27/22 03:06 Baso % (Auto) 0.6 % 03/27/22 03:06 Neut # (Auto) 10.03 K/uL (1.4-6.5) H 03/27/22 03:06 Lymph # (Auto) 0.78 K/uL (1.2-3.4) L 03/27/22 03:06 [place] # (Auto) 1.22 K/uL (0.24-0.82) H 03/27/22 03:06 Eos # (Auto) 0.20 K/uL (0-0.50) 03/27/22 03:06 Baso # (Auto) 0.08 K/uL (0-0.2) 03/27/22 03:06 Immature Gran # (Auto) 0.11 K/uL (0.00-0.02) H 03/27/22 03:06 PT 13.3 Seconds (9.0-12.0) H 03/27/22 13:12 INR 1.3 (0.9-1.1) H 03/27/22 13:12 APTT 27.3 Seconds (21.0-31.0) 03/27/22 13:12 PTT Ratio 1.0 03/27/22 13:12 Sodium 134 mmol/L (136-145) L 03/27/22 03:06 Potassium 4.4 mmol/L (3.5-5.1) 03/27/22 03:06 Chloride 101 mmol/L (98-107) 03/27/22 03:06 Carbon Dioxide 20 mmol/L (21-32) L 03/27/22 03:06 Anion Gap 13 (3-11) H 03/27/22 03:06 BUN 51 mg/dl (6-23) H 03/27/22 03:06 Creatinine 2.62 mg/dl (0.6-1.4) H 03/27/22 03:06 Est Cr Clr Drug Dosing 26.8 ml/min 03/27/22 03:06 Est GFR ( Amer) 25.6 ml/min 03/27/22 03:06 Est GFR (Non-Af Amer) 22.1 ml/min 03/27/22 03:06 BUN/Creatinine Ratio 19.5 (10-20) 03/27/22 03:06 Glucose 115 mg/dl (70-99(Fasting)) H 03/27/22 03:06 Uric Acid 12.8 mg/dl (2.6-7.2) H 03/27/22 03:06 Calcium 9.1 mg/dl (8.5-10.1) 03/27/22 03:06 Phosphorus 3.6 mg/dl (2.5-4.9) 03/27/22 03:06 Total Bilirubin 3.8 mg/dl (0.2-1.0) H 03/27/22 03:06 AST 178 U/L (13-39) H 03/27/22 03:06 ALT 127 U/L (7-52) H 03/27/22 03:06 Alkaline Phosphatase 408 U/L (34-104) H 03/27/22 03:06 Total Creatine Kinase 216 U/L (30-223) 03/27/22 03:06 Total Protein 6.5 gm/dl (6.0-8.3) 03/27/22 03:06 Albumin 3.3 gm/dl (3.4-5.0) L 03/27/22 03:06 Globulin 3.2 gm/dl (2.5-4.0) 03/27/22 03:06 Albumin/Globulin Ratio 1.0 (0.9-2) 03/27/22 03:06 Lipase 135 U/L (11-82) H 03/27/22 03:06 Urine Color Dark Yellow 03/27/22 05:16 Urine Appearance Turbid (Clear) A 03/27/22 05:16 Urine pH 5.0 (4.5-7.5) 03/27/22 05:16 Ur Specific [place] 1.014 (1.000-1.030) 03/27/22 05:16 Urine Protein 2+ (Negative) H 03/27/22 05:16 Urine Glucose (UA) Negative (Negative) 03/27/22 05:16 Urine Ketones Trace (Negative) H 03/27/22 05:16 Urine Blood Negative (Negative) 03/27/22 05:16 Urine Nitrite Negative (Negative) 03/27/22 05:16 Urine Bilirubin 1+ (Negative) H 03/27/22 05:16 Urine Urobilinogen Negative (Negative) 03/27/22 05:16 Ur Leukocyte Esterase Trace (Negative) H 03/27/22 05:16 Urine WBC (Auto) 10-30 /hpf (0-5) H 03/27/22 05:16 Urine RBC (Auto) 0-4 /hpf (0-4) 03/27/22 05:16 U Hyaline Cast (Auto) 5-10 /lpf (0-5) H 03/27/22 05:16 U Epithel Cells (Auto) >30 /lpf (0-5) H 03/27/22 05:16 Urine Bacteria (Auto) 1+ (Negative) H 03/27/22 05:16 Ur Renal Epithelial Cell Not Reportable 03/27/22 05:16 Urine Yeast Not Reportable 03/27/22 05:16 Ur Random Creatinine 140.8 mg/dl 03/27/22 12:23 Urine Sodium 30 mmol/L 03/27/22 12:23 Urine Potassium 47.6 mmol/L 03/27/22 12:23 Urine Chloride 21 mmol/L 03/27/22 12:23 SARS-CoV-2, RNA, NAAT NEGATIVE (NEGATIVE) 03/27/22 06:46 Impressions Gallbladder Ultrasound 03/27/22 03:31 ULTRASOUND RIGHT UPPER QUADRANT ABDOMEN CLINICAL HISTORY: Elevated hepatic transaminases. COMPARISON STUDY: Abdominal CT performed earlier the same day 03/27/2022. TECHNIQUE: Real-time, grayscale, and color flow sonography of the right upper quadrant of the abdomen was performed. Images are reviewed in the transverse and longitudinal planes. FINDINGS: Liver: The liver is enlarged, cirrhotic in morphology, and heterogeneous in echotexture. There is nodularity of the hepatic surface contour. There are numerous infiltrative hepatic mass lesions measuring up to 3.2 cm. There is no intrahepatic biliary ductal dilatation. The main portal vein is patent. Gallbladder: No shadowing gallstones are identified. Mild gallbladder wall thickening is nonspecific and likely related to adjacent hepatocellular disease. There is no pericholecystic fluid. A sonographic Moreland's sign is reportedly absent. The common bile duct measures up to 0.6 cm in diameter. Pancreas: Visualized portions of the pancreatic head and body are normal in appearance. Right kidney: Survey images of the right kidney demonstrate normal size and echotexture. There is no hydronephrosis. Ascites: None. IMPRESSION: 1. No acute sonographic abnormality is seen in the right upper quadrant. No gallstones are identified. 2. The liver is enlarged and cirrhotic in morphology. 3. There is evidence of multifocal hepatic metastatic disease, with numerous infiltrative lesions seen throughout the liver. ACT 112: Negative or not required by law. Electronically signed by: Dov Weeks M.D. 03/27/2022 7:18 AM Abdomen/Pelvis CT 03/27/22 04:39 CT SCAN OF THE ABDOMEN AND PELVIS WITHOUT IV CONTRAST CLINICAL HISTORY: Generalized abdominal pain. Elevated hepatic transaminases. Renal insufficiency. COMPARISON STUDY: Renal ultrasound dated 06/09/2008. TECHNIQUE: CT scan of the abdomen and pelvis is performed from the lung bases to the proximal femora. Images are reviewed in the axial, sagittal, and coronal planes. IV contrast was not administered for this examination due to poor renal function. Note that the examination is suboptimal without oral and IV contrast. A dose lowering technique was utilized adhering to the principles of ALARA. Compared FINDINGS: Lung bases: The heart is normal in size and without pericardial effusion. The lung bases are clear noting bibasilar scarring/atelectasis. A small hiatal hernia is noted. Liver: The unenhanced liver is enlarged, measuring 22.8 cm in length. The liver is struck morphology and heterogeneous in attenuation with nodularity of the surface contour. There is evidence of extensive/diffuse hepatic metastatic disease with numerous mass lesions seen throughout the liver. These measure up to 3.3 cm. There is no intrahepatic biliary ductal dilatation. Gallbladder: Unremarkable. Spleen: Normal in size and attenuation. Pancreas: Infiltration and fluid is seen around the distal pancreatic body and tail. The unenhanced pancreas is otherwise grossly unremarkable. The pancreas duct is normal in caliber and no organized peripancreatic fluid collection is seen. Adrenal glands: Unremarkable. Kidneys: The unenhanced kidneys are normal in size and without hydronephrosis. There is a 4 mm nonobstructing left renal calculus. No right renal calculi are identified. A 2.9 cm exophytic lesion arising from the left lower pole meets CT criteria for simple cyst. Abdominal vasculature: The abdominal aorta is normal in course and caliber. Bowel: There is mild colonic diverticulosis without CT evidence of acute diverticulitis. No bowel obstruction is seen. Mild fecal retention is noted throughout the colon. The appendix is normal visualized. Peritoneum: There is trace perihepatic and pelvic ascites. No intraperitoneal free air is seen. There is a fat-containing umbilical hernia. Lymphadenopathy: There are mildly enlarged retroperitoneal lymph nodes. The largest node is in the left periaortic region on image #192 and measures 13 mm in short axis. Pelvic viscera: The prostate gland is markedly enlarged and heterogeneous noting medial lobe hypertrophy. The bladder is decompressed. The wall is thickened/trabeculated indicating chronic outlet obstruction. There are bilateral fat-containing inguinal hernias. Skeletal structures: The skeletal structures are osteopenic. There is mild lumbosacral spondylosis. There is a moderate chronic-appearing compression deformity of T9. No lytic or blastic lesions are seen. There are healed left- sided rib fractures. IMPRESSION: 1. Question acute pancreatitis. Correlate with clinical findings and serum amylase/lipase levels. 2. The liver is enlarged, heterogeneous, and cirrhotic in morphology. 3. There is evidence of multifocal hepatic metastatic disease. 4. Mildly enlarged intraperitoneal lymph nodes are pathologically determined. Metastatic disease is not excluded. 5. Trace abdominopelvic ascites. 6. Left-sided of lithiasis. 7. Additional findings as above. ACT 112: Negative or not required by law. Electronically signed by: Dov Weeks M.D. 03/27/2022 8:[address] 03/27/22 04:40 CT chest diagnostic wo con CT DOSE: 1717.41 mGy.cm CLINICAL HISTORY: 81 years-old Male with upper abd pain, hx of lymphoma, eval for any mass. Acute chest and abdominal pain in a patient with history of lymphoma TECHNIQUE: Multiaxial CT images of the chest were performed without contrast. A dose lowering technique was utilized adhering to the principles of ALARA. COMPARISON: CT abdomen and pelvis of same day, PET CT 02/11/2007 FINDINGS: Subcentimeter thyroid nodules. No lymphadenopathy identified. The heart is normal in size without pericardial effusion. Moderate coronary artery calcifications. Atherosclerosis of the thoracic aorta without aneurysm. Descending thoracic aortic tortuosity. No pneumothorax, pleural effusion, airspace consolidation or overt pulmonary edema. Subsegmental bibasilar atelectasis versus scarring. Mild emphysema. Scattered solid pulmonary nodules are noted within the upper lung zone prominent distribution bilaterally measuring up to 4 mm, most of which appear to be new from the prior exam. Central airways are patent. Heterogeneity of the liver with trace perihepatic and marginal nodularity. Innumerable masses are present within the liver measuring up to approximately 3 cm. Trace perisplenic fluid also noted. Mild chronic appearing mid thoracic compression deformities. IMPRESSION: 1. Mild emphysema without acute intrathoracic abnormality. 2. Numerous upper lung zone predominant solid pulmonary nodules measure up to 4 mm. Follow-up guidelines provided below. 3. No lymphadenopathy. 4. Innumerable hepatic masses are suggestive of metastasis. Please refer to the CT abdomen and pelvis study of same day for additional findings. Please refer to below summary of Fleischner criteria recommendations for follow- up of incidental CT nodules (Alex Bowen, Guidelines for management of small pulmonary nodules detected on CT scans: A statement from the Fleischner Society, Radiology 237: [phone].) SOLID NODULES Multiple nodules size: <6 mm * Low risk patients: no routine follow-up * high risk patients: optional CT at 12 months Note: newly detected indeterminate nodule in persons 35 years of age or older. * Low risk patients: minimal or absent history of smoking and/or other known risk factors * high risk patients: history of smoking or of other known risk factors (e.g. first degree relative with lung cancer, or exposure to asbestos, radon, uranium) * if a nodule up to 8 mm is partly solid or is ground glass further follow-up is required after 24 months to exclude possible slow growing adenocarcinoma (JOCY) ACT 112: Negative or not required by law. Electronically signed by: Julio Orr M.D. 03/27/2022 7:47 AM
--- NOTE | 2022-03-27 14:31 | Ultrasound Report ---
ULTRASOUND-GUIDED CORE NEEDLE BIOPSY OF THE LEFT HEPATIC LOBE MASS HISTORY: Multiple liver metastasis. COMPARISON: None. PROCEDURE: Written informed consent was obtained. The epigastric region was prepped and draped in the usual sterile fashion. 1% lidocaine was used for local anesthesia. A total of one pass using an 18-g auge by 9 cm biopsy device was made through the left hepatic lobe under ultrasound guidance. The spec imen was placed in formalin and transferred to the pathology department for further evaluation. The p atient tolerated the procedure well. There were no immediate complications. IMPRESSION: Successful ultrasound-guided core needle biopsy of the left hepatic lobe/masses. ACT 112: Negative or not required by law. Electronically signed by: Ismael Little M.D. 03/27/2022 2:30 PM
[2022-03-27] MEDS: HEPARIN SOD 5,000 UNIT/0.5 ML VIAL SQ SCH ×2 (14:46→22:36)
[2022-03-27] MEDS: TERAZOSIN HCL 5 MG CAP PO SCH (20:19)
[2022-03-28] MEDS: LACTATED RINGER'S 1,000 ML IV SCH ×2 (01:09→12:14)
[2022-03-28 05:24] LABS: Basophils # (auto) 0.08 K/uL (0-0.2); Basophils % (auto) 0.7 %; Eosinophils # (auto) 0.29 K/uL (0-0.50); Eosinophils % (auto) 2.5 %; Hematocrit (blood only) 34.7 % (40.1-51.0); Hemoglobin 12.5 g/dl (14.0-18.0); Immature Granulocytes # (auto) 0.13 K/uL (0.00-0.02); Immature Granulocytes % (auto) 1.1 %; Lymphocytes # (auto) 0.77 K/uL (1.2-3.4); Lymphocytes % (auto) 6.7 %; Mean Corpuscular Hemoglobin 30.6 pg (25.0-34.0); Mean Corpuscular Volume 84.8 fL (80.0-100.0); Mean Platelet Volume 10.1 fL (9.4-12.4); Monocytes # (auto) 1.16 K/uL (0.24-0.82); Monocytes % (auto) 10.1 %; Neutrophils # (auto) 9.02 K/uL (1.4-6.5); Neutrophils % (auto) 78.9 %; Platelet Count 225 K/uL (130-400); RDW Coefficient of Variation 16.6 % (11.5-14.5); RDW Standard Deviation 49.8 fL (36.4-46.3); Red Blood Count 4.09 M/uL (4.63-6.08); White Blood Count 11.45 K/ul (4.8-10.8)
[2022-03-28 05:56] LABS: Albumin Level 2.9 gm/dl (3.4-5.0); BUN Creatinine Ratio 14.3 (10-20); Bilirubin Direct 2.2 mg/dl (0-0.2); Bilirubin,Total 3.8 mg/dl (0.2-1.0); Calcium 8.6 mg/dl (8.5-10.1); Creatinine Clr Calc Pharmacy 16.1 ml/min; Est GFR (African American) 13.6 ml/min; Est GFR (Non-African American) 11.8 ml/min; Magnesium 2.2 mg/dl (1.7-2.4); Potassium 4.9 mmol/L (3.5-5.1); Total Protein 5.7 gm/dl (6.0-8.3)
[2022-03-28] MEDS ORDERED: cefTRIAXone SODIUM 1,000 MG in DEXTROSE 5% 50 ML IV SCH (06:00)
[2022-03-28] MEDS: HEPARIN SOD 5,000 UNIT/0.5 ML VIAL SQ SCH ×3 (06:01→20:48)
[2022-03-28] MEDS: BRIMONIDINE TARTRATE 0.2% 5ML OPB SCH ×2 (09:01→20:49)
[2022-03-28] MEDS: TIMOLOL MALEATE 0.5% OP SOLN 5 ML BTL OPB SCH ×2 (09:01→20:49)
[2022-03-28] MEDS: PANTOprazole 40 MG TAB PO SCH (09:01)
[2022-03-28] MEDS: cefTRIAXone SODIUM 2,000 MG in DEXTROSE 5% 50 ML IV SCH (09:02)
--- NOTE | 2022-03-28 10:10 | Nephrology Progress Note ---
Date of Service March 28, 2022 Assessment & Plan (1) Acute kidney failure: Plan: Patient with acute kidney injury likely due to ischemic ATN in setting of malignancy. Creatinine is uptrending to 4.4 today. He has metabolic acidosis as well. Patient has normal renal function at baseline. Patient was anuric yesterday but is reporting some urine output today. Electrolytes are stable no signs of volume overload -Continue monitor renal function with a BMP. -Strict input output -Avoid contrast (2) Elevated uric acid in blood: Plan: Likely due to tumor lysis. We will increase allopurinol to 300 mg daily. Admission and Anticipated Discharge Date Admission Date: March 27, 2022 Subjective Seen for acute kidney injury. He feels about the same. No shortness of breath or leg swelling. He is receiving normal saline. Patient reports to be making more urine now. Creatinine is worsening Review of Systems Review of Systems: All other systems were reviewed and negative except as noted in HPI Physical Exam Physical Exam: General exam: Appears comfortable, no acute distress HEENT: Pupils are equal and reactive to light Neck: No JVD, neck is supple trachea is midline Respiratory system: Clear breath sounds bilaterally. Gastrointestinal: Abdomen is soft, non distended, non tender, bowel sounds are present CVS: Regular rate and rhythm. No murmurs, rubs or gallops Musculoskeletal: No joint or muscle tenderness Extremities: Non tender, no edema, peripheral pulses are present Neuro: Oriented, no tremors, no focal neurological deficits Skin: No rashes Results & Data ([facility]) Vital Signs (Past 12 Hours) Vital Signs Temp Pulse Pulse Resp BP Pulse Ox O2 Del Method 03/28/22 07:50 36.5 C 86 20 112/67 96 Room Air 03/28/22 07:49 73 03/27/22 22:12 70 03/27/22 23:46 36.8 C 86 18 112/73 95 Room Air Laboratory Results 03/28/22 05:07 03/28/22 03/28/22 05:07 05:07 WBC 11.45 H RBC 4.09 L MCV 84.8 MCH 30.6 MCHC 36.0 RDW Std Deviation 49.8 H RDW Coeff of Ryan 16.6 H Plt Count 225 MPV 10.1 Albumin 2.9 L
[2022-03-28] MEDS: allopurinoL 300 MG TAB PO SCH (11:52)
--- NOTE | 2022-03-28 13:37 | Hospitalist Progress Note ---
Date of Service March 28, 2022 Assessment & Plan (1) Liver lesion: (2) Elevated LFTs: Plan: Patient presented with abdominal discomfort at his primary care office on 03/26. Found to have right upper quadrant fullness on examination and elevated LFTs CT abdomen shows enlarged liver, heterogeneous and cirrhotic in morphology along with multifocal hepatic metastatic disease. Also found to have mildly enlarged intra peritoneal lymph node. Patient underwent core needle biopsy yesterday by radiology as per recommendation by Dr. Sandoval and oncology inpatient. CEA -2.0; within normal limit [place] 1919, alpha-fetoprotein pending Plan; Follow-up on pathology results; also follow-up tumor marker. LFTs presently stable. Plan to obtain triple phase liver MRI/MRCP after kidney function improves. He will follow-up with Dr. Sandoval [facility] [place] after discharge from the hospital. (3) Acute kidney failure: (4) Elevated uric acid in blood: Plan: Baseline creatinine of 0.9 in February. Creatinine uptrending Making some urine output Bladder scan negative for retention. CT abdomen did not show hydronephrosis. Plan: -His LUIS EDUARDO is thought secondary to ATN from the hypotension episodes prior to his presentation. However, patient's uric acid is uptrending. His potassium, calcium and phosphorus are within normal limits. LDH is also mildly elevated. However, there is a possibility of tumor lysis syndrome. -Discussion done with pharmacy and oncology; rasburicase not available in the hospital. -Discussed with nephrology regarding elevated uric acid and LUIS EDUARDO. Recommended to see if how the patient does till tomorrow before deciding on the transfer to a facility where rasburicase is available. Patient is showing signs of improvement with improving urine output. -Extensive discussion done with and patient at bedside regarding the discussion above; they have verbalized understanding; and are agreeable to stay in the hospital for now. 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 Chronic conditions; Hypertensionlisinoprilhydrochlorothiazide on hold BPHcontinue on terazosin. Plan DVT heparin Full code Admission and Anticipated Discharge Date Admission Date: March 27, 2022 Subjective Patient seen and examined at bedside. He reports that he has started urinating since today morning. Denies shortness of breath. No fever, chills, chest pain or shortness of breath. Review of Systems Review of Systems: All systems reviewed & are unremarkable except as noted in Subjective Physical Exam Physical Exam: Constitutional: WD/WN, vitals as above, NAD, sitting up in bed, pleasant, conversing easily Respiratory: normal respiratory effort, lungs clear to auscultation, no wheeze, rales, rhonchi. Normal insp/exp effort, no accessory muscle use Cardiovascular: RRR, no murmur, no edema Vessels: no JVD or carotid bruit Chest: normal inspection of chest Abdomen: Hepatomegaly present; soft, nontender. Bowel sound present. Musculoskeletal: no cyanosis or clubbing, extremities motor strength 5/5 Skin: no rashes, warm and dry normal turgor Neurologic: PERRL, EOMI, accommodation nl, no face palsy, no dysarthria CN's II- XI intact bilaterally and moves all extremities Psychiatric: A+Ox3, euthymic affect Lymphatic: no cervical or axillary lymphadenopathy : deferred Results & Data Results & Data ([facility]) Vital Signs (Past 12 Hours) Vital Signs Temp Pulse Pulse Resp BP Pulse Ox O2 Del Method 03/28/22 11:13 36.7 C 79 20 100/67 95 Room Air 03/28/22 07:50 36.5 C 86 20 112/67 96 Room Air 03/28/22 07:49 73 Laboratory Results Laboratory Results WBC 11.45 K/ul (4.8-10.8) H 03/28/22 05:07 RBC 4.09 M/uL (4.63-6.08) L 03/28/22 05:07 Hgb 12.5 g/dl (14.0-18.0) L 03/28/22 05:07 Hct 34.7 % (40.1-51.0) L 03/28/22 05:07 MCV 84.8 fL (80.0-100.0) 03/28/22 05:07 MCH 30.6 pg (25.0-34.0) 03/28/22 05:07 MCHC 36.0 g/dL (32.0-36.0) 03/28/22 05:07 RDW Std Deviation 49.8 fL (36.4-46.3) H 03/28/22 05:07 RDW Coeff of Ryan 16.6 % (11.5-14.5) H 03/28/22 05:07 Plt Count 225 K/uL (130-400) 03/28/22 05:07 MPV 10.1 fL (9.4-12.4) 03/28/22 05:07 Immature Gran % (Auto) 1.1 % 03/28/22 05:07 Neut % (Auto) 78.9 % 03/28/22 05:07 Lymph % (Auto) 6.7 % 03/28/22 05:07 [place] % (Auto) 10.1 % 03/28/22 05:07 Eos % (Auto) 2.5 % 03/28/22 05:07 Baso % (Auto) 0.7 % 03/28/22 05:07 Neut # (Auto) 9.02 K/uL (1.4-6.5) H 03/28/22 05:07 Lymph # (Auto) 0.77 K/uL (1.2-3.4) L 03/28/22 05:07 [place] # (Auto) 1.16 K/uL (0.24-0.82) H 03/28/22 05:07 Eos # (Auto) 0.29 K/uL (0-0.50) 03/28/22 05:07 Baso # (Auto) 0.08 K/uL (0-0.2) 03/28/22 05:07 Immature Gran # (Auto) 0.13 K/uL (0.00-0.02) H 03/28/22 05:07 PT 13.3 Seconds (9.0-12.0) H 03/27/22 13:12 INR 1.3 (0.9-1.1) H 03/27/22 13:12 APTT 27.3 Seconds (21.0-31.0) 03/27/22 13:12 PTT Ratio 1.0 03/27/22 13:12 Sodium 133 mmol/L (136-145) L 03/28/22 05:07 Potassium 4.9 mmol/L (3.5-5.1) 03/28/22 05:07 Chloride 101 mmol/L (98-107) 03/28/22 05:07 Carbon Dioxide 18 mmol/L (21-32) L 03/28/22 05:07 Anion Gap 14 (3-11) H 03/28/22 05:07 BUN 63 mg/dl (6-23) H 03/28/22 05:07 Creatinine 4.41 mg/dl (0.6-1.4) H D 03/28/22 05:07 Est Cr Clr Drug Dosing 16.1 ml/min 03/28/22 05:07 Est GFR ( Amer) 13.6 ml/min 03/28/22 05:07 Est GFR (Non-Af Amer) 11.8 ml/min 03/28/22 05:07 BUN/Creatinine Ratio 14.3 (10-20) 03/28/22 05:07 Glucose 89 mg/dl (70-99(Fasting)) 03/28/22 05:07 Uric Acid 14.7 mg/dl (2.6-7.2) H 03/28/22 05:07 Calcium 8.6 mg/dl (8.5-10.1) 03/28/22 05:07 Phosphorus 3.6 mg/dl (2.5-4.9) 03/27/22 03:06 Magnesium 2.2 mg/dl (1.7-2.4) 03/28/22 05:07 Total Bilirubin 3.8 mg/dl (0.2-1.0) H 03/28/22 05:07 Direct Bilirubin 2.2 mg/dl (0-0.2) H 03/28/22 05:07 AST 161 U/L (13-39) H 03/28/22 05:07 ALT 115 U/L (7-52) H 03/28/22 05:07 Alkaline Phosphatase 301 U/L (34-104) H 03/28/22 05:07 Lactate Dehydrogenase 378 U/L (86-244) H 03/28/22 05:07 Total Creatine Kinase 216 U/L (30-223) 03/27/22 03:06 Total Protein 5.7 gm/dl (6.0-8.3) L 03/28/22 05:07 Albumin 2.9 gm/dl (3.4-5.0) L 03/28/22 05:07 Globulin 3.2 gm/dl (2.5-4.0) 03/27/22 03:06 Albumin/Globulin Ratio 1.0 (0.9-2) 03/27/22 03:06 Lipase 135 U/L (11-82) H 03/27/22 03:06 Carcinoembryonic Ag 2.0 ng/ml (0-2.5) 03/27/22 13:12 Urine Color Dark Yellow 03/27/22 05:16 Urine Appearance Turbid (Clear) A 03/27/22 05:16 Urine pH 5.0 (4.5-7.5) 03/27/22 05:16 Ur Specific [place] 1.014 (1.000-1.030) 03/27/22 05:16 Urine Protein 2+ (Negative) H 03/27/22 05:16 Urine Glucose (UA) Negative (Negative) 03/27/22 05:16 Urine Ketones Trace (Negative) H 03/27/22 05:16 Urine Blood Negative (Negative) 03/27/22 05:16 Urine Nitrite Negative (Negative) 03/27/22 05:16 Urine Bilirubin 1+ (Negative) H 03/27/22 05:16 Urine Urobilinogen Negative (Negative) 03/27/22 05:16 Ur Leukocyte Esterase Trace (Negative) H 03/27/22 05:16 Urine WBC (Auto) 10-30 /hpf (0-5) H 03/27/22 05:16 Urine RBC (Auto) 0-4 /hpf (0-4) 03/27/22 05:16 U Hyaline Cast (Auto) 5-10 /lpf (0-5) H 03/27/22 05:16 U Epithel Cells (Auto) >30 /lpf (0-5) H 03/27/22 05:16 Urine Bacteria (Auto) 1+ (Negative) H 03/27/22 05:16 Ur Renal Epithelial Cell Not Reportable 03/27/22 05:16 Urine Yeast Not Reportable 03/27/22 05:16 Ur Random Creatinine 140.8 mg/dl 03/27/22 12:23 Urine Sodium 30 mmol/L 03/27/22 12:23 Urine Potassium 47.6 mmol/L 03/27/22 12:23 Urine Chloride 21 mmol/L 03/27/22 12:23 SARS-CoV-2, RNA, NAAT NEGATIVE (NEGATIVE) 03/27/22 06:46 Impressions Gallbladder Ultrasound 03/27/22 03:31 ULTRASOUND RIGHT UPPER QUADRANT ABDOMEN CLINICAL HISTORY: Elevated hepatic transaminases. COMPARISON STUDY: Abdominal CT performed earlier the same day 03/27/2022. TECHNIQUE: Real-time, grayscale, and color flow sonography of the right upper quadrant of the abdomen was performed. Images are reviewed in the transverse and longitudinal planes. FINDINGS: Liver: The liver is enlarged, cirrhotic in morphology, and heterogeneous in echotexture. There is nodularity of the hepatic surface contour. There are numerous infiltrative hepatic mass lesions measuring up to 3.2 cm. There is no intrahepatic biliary ductal dilatation. The main portal vein is patent. Gallbladder: No shadowing gallstones are identified. Mild gallbladder wall thickening is nonspecific and likely related to adjacent hepatocellular disease. There is no pericholecystic fluid. A sonographic Moreland's sign is reportedly absent. The common bile duct measures up to 0.6 cm in diameter. Pancreas: Visualized portions of the pancreatic head and body are normal in appearance. Right kidney: Survey images of the right kidney demonstrate normal size and echotexture. There is no hydronephrosis. Ascites: None. IMPRESSION: 1. No acute sonographic abnormality is seen in the right upper quadrant. No gallstones are identified. 2. The liver is enlarged and cirrhotic in morphology. 3. There is evidence of multifocal hepatic metastatic disease, with numerous infiltrative lesions seen throughout the liver. ACT 112: Negative or not required by law. Electronically signed by: Dov Weeks M.D. 03/27/2022 7:18 AM Abdomen/Pelvis CT 03/27/22 04:39 CT SCAN OF THE ABDOMEN AND PELVIS WITHOUT IV CONTRAST CLINICAL HISTORY: Generalized abdominal pain. Elevated hepatic transaminases. Renal insufficiency. COMPARISON STUDY: Renal ultrasound dated 06/09/2008. TECHNIQUE: CT scan of the abdomen and pelvis is performed from the lung bases to the proximal femora. Images are reviewed in the axial, sagittal, and coronal planes. IV contrast was not administered for this examination due to poor renal function. Note that the examination is suboptimal without oral and IV contrast. A dose lowering technique was utilized adhering to the principles of ALARA. Compared FINDINGS: Lung bases: The heart is normal in size and without pericardial effusion. The lung bases are clear noting bibasilar scarring/atelectasis. A small hiatal hernia is noted. Liver: The unenhanced liver is enlarged, measuring 22.8 cm in length. The liver is struck morphology and heterogeneous in attenuation with nodularity of the surface contour. There is evidence of extensive/diffuse hepatic metastatic disease with numerous mass lesions seen throughout the liver. These measure up to 3.3 cm. There is no intrahepatic biliary ductal dilatation. Gallbladder: Unremarkable. Spleen: Normal in size and attenuation. Pancreas: Infiltration and fluid is seen around the distal pancreatic body and tail. The unenhanced pancreas is otherwise grossly unremarkable. The pancreas duct is normal in caliber and no organized peripancreatic fluid collection is seen. Adrenal glands: Unremarkable. Kidneys: The unenhanced kidneys are normal in size and without hydronephrosis. There is a 4 mm nonobstructing left renal calculus. No right renal calculi are identified. A 2.9 cm exophytic lesion arising from the left lower pole meets CT criteria for simple cyst. Abdominal vasculature: The abdominal aorta is normal in course and caliber. Bowel: There is mild colonic diverticulosis without CT evidence of acute diverticulitis. No bowel obstruction is seen. Mild fecal retention is noted throughout the colon. The appendix is normal visualized. Peritoneum: There is trace perihepatic and pelvic ascites. No intraperitoneal free air is seen. There is a fat-containing umbilical hernia. Lymphadenopathy: There are mildly enlarged retroperitoneal lymph nodes. The largest node is in the left periaortic region on image #192 and measures 13 mm in short axis. Pelvic viscera: The prostate gland is markedly enlarged and heterogeneous noting medial lobe hypertrophy. The bladder is decompressed. The wall is thickened/trabeculated indicating chronic outlet obstruction. There are bilateral fat-containing inguinal hernias. Skeletal structures: The skeletal structures are osteopenic. There is mild lumbosacral spondylosis. There is a moderate chronic-appearing compression deformity of T9. No lytic or blastic lesions are seen. There are healed left- sided rib fractures. IMPRESSION: 1. Question acute pancreatitis. Correlate with clinical findings and serum amylase/lipase levels. 2. The liver is enlarged, heterogeneous, and cirrhotic in morphology. 3. There is evidence of multifocal hepatic metastatic disease. 4. Mildly enlarged intraperitoneal lymph nodes are pathologically determined. Metastatic disease is not excluded. 5. Trace abdominopelvic ascites. 6. Left-sided of lithiasis. 7. Additional findings as above. ACT 112: Negative or not required by law. Electronically signed by: Dov Weeks M.D. 03/27/2022 8:[address] 03/27/22 04:40 CT chest diagnostic wo con CT DOSE: 1717.41 mGy.cm CLINICAL HISTORY: 81 years-old Male with upper abd pain, hx of lymphoma, eval for any mass. Acute chest and abdominal pain in a patient with history of lymphoma TECHNIQUE: Multiaxial CT images of the chest were performed without contrast. A dose lowering technique was utilized adhering to the principles of ALARA. COMPARISON: CT abdomen and pelvis of same day, PET CT 02/11/2007 FINDINGS: Subcentimeter thyroid nodules. No lymphadenopathy identified. The heart is normal in size without pericardial effusion. Moderate coronary artery calcifications. Atherosclerosis of the thoracic aorta without aneurysm. Descending thoracic aortic tortuosity. No pneumothorax, pleural effusion, airspace consolidation or overt pulmonary edema. Subsegmental bibasilar atelectasis versus scarring. Mild emphysema. Scattered solid pulmonary nodules are noted within the upper lung zone prominent distribution bilaterally measuring up to 4 mm, most of which appear to be new from the prior exam. Central airways are patent. Heterogeneity of the liver with trace perihepatic and marginal nodularity. Innumerable masses are present within the liver measuring up to approximately 3 cm. Trace perisplenic fluid also noted. Mild chronic appearing mid thoracic compression deformities. IMPRESSION: 1. Mild emphysema without acute intrathoracic abnormality. 2. Numerous upper lung zone predominant solid pulmonary nodules measure up to 4 mm. Follow-up guidelines provided below. 3. No lymphadenopathy. 4. Innumerable hepatic masses are suggestive of metastasis. Please refer to the CT abdomen and pelvis study of same day for additional findings. Please refer to below summary of Fleischner criteria recommendations for follow- up of incidental CT nodules (Alex Bowen, Guidelines for management of small pulmonary nodules detected on CT scans: A statement from the Fleischner Society, Radiology 237: [phone].) SOLID NODULES Multiple nodules size: <6 mm * Low risk patients: no routine follow-up * high risk patients: optional CT at 12 months Note: newly detected indeterminate nodule in persons 35 years of age or older. * Low risk patients: minimal or absent history of smoking and/or other known risk factors * high risk patients: history of smoking or of other known risk factors (e.g. first degree relative with lung cancer, or exposure to asbestos, radon, uranium) * if a nodule up to 8 mm is partly solid or is ground glass further follow-up is required after 24 months to exclude possible slow growing adenocarcinoma (JOCY) ACT 112: Negative or not required by law. Electronically signed by: Julio Orr M.D. 03/27/2022 7:47 AM Liver Biopsy Ultrasound 03/27/22 13:15 ULTRASOUND-GUIDED CORE NEEDLE BIOPSY OF THE LEFT HEPATIC LOBE MASS HISTORY: Multiple liver metastasis. COMPARISON: None. PROCEDURE: Written informed consent was obtained. The epigastric region was prepped and draped in the usual sterile fashion. 1% lidocaine was used for local anesthesia. A total of one pass using an 18-gauge by 9 cm biopsy device was made through the left hepatic lobe under ultrasound guidance. The specimen was placed in formalin and transferred to the pathology department for further evaluation. The patient tolerated the procedure well. There were no immediate complications. IMPRESSION: Successful ultrasound-guided core needle biopsy of the left hepatic lobe/masses. ACT 112: Negative or not required by law. Electronically signed by: Ismael Little M.D. 03/27/2022 2:30 PM
[2022-03-28] MEDS: TERAZOSIN HCL 5 MG CAP PO SCH (20:49)
[2022-03-29] MEDS: LACTATED RINGER'S 1,000 ML IV SCH (00:38)
[2022-03-29] MEDS: HEPARIN SOD 5,000 UNIT/0.5 ML VIAL SQ SCH ×3 (05:00→21:28)
[2022-03-29 07:25] LABS: Estimated Average Glucose 108 mg/dl; Hemoglobin A1C 5.4 % (4.5-5.6)
[2022-03-29 07:39] LABS: Basophils # (auto) 0.07 K/uL (0-0.2); Basophils % (auto) 0.6 %; Eosinophils # (auto) 0.17 K/uL (0-0.50); Eosinophils % (auto) 1.4 %; Hematocrit (blood only) 37.9 % (40.1-51.0); Hemoglobin 13.5 g/dl (14.0-18.0); Immature Granulocytes # (auto) 0.19 K/uL (0.00-0.02); Immature Granulocytes % (auto) 1.5 %; Lymphocytes # (auto) 0.67 K/uL (1.2-3.4); Lymphocytes % (auto) 5.4 %; Mean Corpuscular Hemoglobin 30.5 pg (25.0-34.0); Mean Corpuscular Hgb Conc 35.6 g/dL (32.0-36.0); Mean Corpuscular Volume 85.6 fL (80.0-100.0); Mean Platelet Volume 10.2 fL (9.4-12.4); Monocytes # (auto) 1.14 K/uL (0.24-0.82); Monocytes % (auto) 9.2 %; Neutrophils # (auto) 10.15 K/uL (1.4-6.5); Neutrophils % (auto) 81.9 %; Platelet Count 229 K/uL (130-400); RDW Coefficient of Variation 16.3 % (11.5-14.5); RDW Standard Deviation 49.2 fL (36.4-46.3); Red Blood Count 4.43 M/uL (4.63-6.08); White Blood Count 12.39 K/ul (4.8-10.8)
[2022-03-29] MEDS: BRIMONIDINE TARTRATE 0.2% 5ML OPB SCH ×2 (08:25→21:27)
[2022-03-29] MEDS: allopurinoL 300 MG TAB PO SCH (08:25)
[2022-03-29] MEDS: PANTOprazole 40 MG TAB PO SCH (08:25)
[2022-03-29] MEDS: TIMOLOL MALEATE 0.5% OP SOLN 5 ML BTL OPB SCH ×2 (08:25→21:27)
[2022-03-29] MEDS: cefTRIAXone SODIUM 2,000 MG in DEXTROSE 5% 50 ML IV SCH (08:26)
[2022-03-29 09:37] LABS: Albumin Level 2.9 gm/dl (3.4-5.0); BUN Creatinine Ratio 13.1 (10-20); Bilirubin,Total 4.8 mg/dl (0.2-1.0); Calcium 8.7 mg/dl (8.5-10.1); Creatinine Clr Calc Pharmacy 12.2 ml/min; Est GFR (African American) 9.6 ml/min; Est GFR (Non-African American) 8.3 ml/min; Globulin 2.9 gm/dl (2.5-4.0); Potassium 4.9 mmol/L (3.5-5.1); Total Protein 5.8 gm/dl (6.0-8.3); Uric Acid 14.4 mg/dl (2.6-7.2)
[2022-03-29] MEDS ORDERED: RASBURICASE IV ONE (10:48)
--- NOTE | 2022-03-29 10:52 | Nephrology Progress Note ---
Date of Service March 29, 2022 Assessment & Plan (1) Acute kidney failure: Plan: Patient with acute kidney injury likely due to ischemic ATN in setting of malignancy and high uric acid. Creatinine is uptrending to 5.9 today. He has metabolic acidosis as well. Patient has normal renal function at baseline. Patient is oliguric but is reporting more urine output today. Electrolytes are stable no signs of volume overload -Continue monitor renal function with a BMP. -Strict input output -Avoid contrast (2) Elevated uric acid in blood: Plan: Likely due to tumor lysis. We will continue allopurinol to 300 mg daily. I am ordering rasburicase 10 mg once. Medication is not available but will be procured by pharmacy. Admission and Anticipated Discharge Date Admission Date: March 27, 2022 Subjective Seen for acute renal failure. He reports exertional dyspnea. Legs are slightly swollen. Creatinine is uptrending Review of Systems Review of Systems: All other systems were reviewed and negative except as noted in HPI Physical Exam Physical Exam: General exam: Appears comfortable, no acute distress HEENT: Pupils are equal and reactive to light Neck: No JVD, neck is supple trachea is midline Respiratory system: Clear breath sounds bilaterally. Gastrointestinal: Abdomen is soft, non distended, non tender, bowel sounds are present CVS: Regular rate and rhythm. No murmurs, rubs or gallops Musculoskeletal: No joint or muscle tenderness Extremities: Non tender, 1+ edema, peripheral pulses are present Neuro: Oriented, no tremors, no focal neurological deficits Skin: No rashes Results & Data ([facility]) Vital Signs (Past 12 Hours) Vital Signs Temp Pulse Pulse Resp BP Pulse Ox O2 Del Method 03/29/22 10:31 80 03/29/22 08:19 36.4 C L 75 19 130/74 95 Room Air 03/29/22 04:19 36.6 C 82 18 126/63 94 Room Air 03/28/22 23:00 36.6 C 94 H 20 156/80 H 96 Room Air Laboratory Results 03/29/22 07:20 03/29/22 03/29/22 07:20 07:20 WBC 12.39 H RBC 4.43 L MCV 85.6 MCH 30.5 MCHC 35.6 RDW Std Deviation 49.2 H RDW Coeff of Ryan 16.3 H Plt Count 229 MPV 10.2 Albumin 2.9 L
--- NOTE | 2022-03-29 12:41 | Hospitalist Progress Note ---
Date of Service March 29, 2022 Assessment & Plan (1) Liver lesion: (2) Elevated LFTs: Plan: Patient presented with abdominal discomfort at his primary care office on 03/26. Found to have right upper quadrant fullness on examination and elevated LFTs CT abdomen shows enlarged liver, heterogeneous and cirrhotic in morphology along with multifocal hepatic metastatic disease. Also found to have mildly enlarged intra peritoneal lymph node. Patient underwent core needle biopsy 03/27 by radiology as per recommendation by Dr. Sandoval and oncology inpatient. CEA -2.0; within normal limit [place] 1919, alpha-fetoprotein pending Plan; Follow-up on pathology results; also follow-up tumor marker. LFTs presently stable. Plan to obtain triple phase liver MRI/MRCP after kidney function improves. He will follow-up with Dr. Sandoval of [facility] oncology after discharge from the hospital. (3) Acute kidney failure: (4) Elevated uric acid in blood: Plan: Baseline creatinine of 0.9 in February. Creatinine uptrending to 5.8. Uric acid is around 14. Making some urine output Bladder scan negative for retention. CT abdomen did not show hydronephrosis. Plan: -His LUIS EDUARDO is thought secondary to ATN from the hypotension episodes prior to his presentation. His uric acid initially up trended but has stabilized. His potassium, calcium and phosphorus are within normal limits. LDH is also mildly elevated. However, there is a possibility of tumor lysis syndrome. Discussed with pharmacy regarding ordering rasburicase; nonformulary request filled out for ordering rasburicase. To be available for administration on Friday. Nephrology on board; recommended to continue 300 mg allopurinol. Stop IV fluids as patient is getting edematous and has shortness of breath. Extensive discussion done with and patient at bedside regarding the discussion above; they have verbalized understanding; and are agreeable with the plan. 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 Chronic conditions; Hypertensionlisinoprilhydrochlorothiazide on hold BPHcontinue on terazosin. Plan DVT heparin Full code Admission and Anticipated Discharge Date Admission Date: March 27, 2022 Subjective Patient seen and examined at bedside. He is comfortably lying in the bed; not in distress. His legs are slightly swollen and he reports shortness of breath on exertion as well. Review of Systems Review of Systems: All systems reviewed & are unremarkable except as noted in Subjective Physical Exam Physical Exam: Constitutional: WD/WN, vitals as above, NAD, sitting up in bed, pleasant, conversing easily Respiratory: normal respiratory effort, lungs clear to auscultation, no wheeze, rales, rhonchi. Normal insp/exp effort, no accessory muscle use Cardiovascular: RRR, no murmur, no edema Vessels: no JVD or carotid bruit Chest: normal inspection of chest Abdomen: Hepatomegaly present; soft, nontender. Bowel sound present. Musculoskeletal: no cyanosis or clubbing, extremities motor strength 5/5. 2+ pitting edema present up to knees. Skin: no rashes, warm and dry normal turgor Neurologic: PERRL, EOMI, accommodation nl, no face palsy, no dysarthria CN's II- XI intact bilaterally and moves all extremities Psychiatric: A+Ox3, euthymic affect Lymphatic: no cervical or axillary lymphadenopathy : deferred Results & Data Results & Data ([facility]) Vital Signs (Past 12 Hours) Vital Signs Temp Pulse Pulse Resp BP Pulse Ox O2 Del Method 03/29/22 11:12 36.5 C 74 18 129/84 96 Room Air 03/29/22 10:31 80 03/29/22 08:19 36.4 C L 75 19 130/74 95 Room Air 03/29/22 04:19 36.6 C 82 18 126/63 94 Room Air Laboratory Results Laboratory Results WBC 12.39 K/ul (4.8-10.8) H 03/29/22 07:20 RBC 4.43 M/uL (4.63-6.08) L 03/29/22 07:20 Hgb 13.5 g/dl (14.0-18.0) L 03/29/22 07:20 Hct 37.9 % (40.1-51.0) L 03/29/22 07:20 MCV 85.6 fL (80.0-100.0) 03/29/22 07:20 MCH 30.5 pg (25.0-34.0) 03/29/22 07:20 MCHC 35.6 g/dL (32.0-36.0) 03/29/22 07:20 RDW Std Deviation 49.2 fL (36.4-46.3) H 03/29/22 07:20 RDW Coeff of Ryan 16.3 % (11.5-14.5) H 03/29/22 07:20 Plt Count 229 K/uL (130-400) 03/29/22 07:20 MPV 10.2 fL (9.4-12.4) 03/29/22 07:20 Immature Gran % (Auto) 1.5 % 03/29/22 07:20 Neut % (Auto) 81.9 % 03/29/22 07:20 Lymph % (Auto) 5.4 % 03/29/22 07:20 [place] % (Auto) 9.2 % 03/29/22 07:20 Eos % (Auto) 1.4 % 03/29/22 07:20 Baso % (Auto) 0.6 % 03/29/22 07:20 Neut # (Auto) 10.15 K/uL (1.4-6.5) H 03/29/22 07:20 Lymph # (Auto) 0.67 K/uL (1.2-3.4) L 03/29/22 07:20 [place] # (Auto) 1.14 K/uL (0.24-0.82) H 03/29/22 07:20 Eos # (Auto) 0.17 K/uL (0-0.50) 03/29/22 07:20 Baso # (Auto) 0.07 K/uL (0-0.2) 03/29/22 07:20 Immature Gran # (Auto) 0.19 K/uL (0.00-0.02) H 03/29/22 07:20 PT 13.3 Seconds (9.0-12.0) H 03/27/22 13:12 INR 1.3 (0.9-1.1) H 03/27/22 13:12 APTT 27.3 Seconds (21.0-31.0) 03/27/22 13:12 PTT Ratio 1.0 03/27/22 13:12 Sodium 130 mmol/L (136-145) L 03/29/22 07:20 Potassium 4.9 mmol/L (3.5-5.1) 03/29/22 07:20 Chloride 98 mmol/L (98-107) 03/29/22 07:20 Carbon Dioxide 16 mmol/L (21-32) L 03/29/22 07:20 Anion Gap 16 (3-11) H 03/29/22 07:20 BUN 77 mg/dl (6-23) H 03/29/22 07:20 Creatinine 5.88 mg/dl (0.6-1.4) H* D 03/29/22 07:20 Est Cr Clr Drug Dosing 12.2 ml/min 03/29/22 07:20 Est GFR ( Amer) 9.6 ml/min 03/29/22 07:20 Est GFR (Non-Af Amer) 8.3 ml/min 03/29/22 07:20 BUN/Creatinine Ratio 13.1 (10-20) 03/29/22 07:20 Glucose 93 mg/dl (70-99(Fasting)) 03/29/22 07:20 Estimat Average Glucose 108 mg/dl 03/28/22 05:07 Hemoglobin A1c 5.4 % (4.5-5.6) 03/28/22 05:07 Uric Acid 14.4 mg/dl (2.6-7.2) H 03/29/22 07:20 Calcium 8.7 mg/dl (8.5-10.1) 03/29/22 07:20 Phosphorus 3.6 mg/dl (2.5-4.9) 03/27/22 03:06 Magnesium 2.2 mg/dl (1.7-2.4) 03/28/22 05:07 Total Bilirubin 4.8 mg/dl (0.2-1.0) H 03/29/22 07:20 Direct Bilirubin 2.2 mg/dl (0-0.2) H 03/28/22 05:07 AST 176 U/L (13-39) H 03/29/22 07:20 ALT 120 U/L (7-52) H 03/29/22 07:20 Alkaline Phosphatase 352 U/L (34-104) H 03/29/22 07:20 Lactate Dehydrogenase 378 U/L (86-244) H 03/28/22 05:07 Total Creatine Kinase 216 U/L (30-223) 03/27/22 03:06 Total Protein 5.8 gm/dl (6.0-8.3) L 03/29/22 07:20 Albumin 2.9 gm/dl (3.4-5.0) L 03/29/22 07:20 Globulin 2.9 gm/dl (2.5-4.0) 03/29/22 07:20 Albumin/Globulin Ratio 1.0 (0.9-2) 03/29/22 07:20 Lipase 135 U/L (11-82) H 03/27/22 03:06 Carcinoembryonic Ag 2.0 ng/ml (0-2.5) 03/27/22 13:12 Urine Color Dark Yellow 03/27/22 05:16 Urine Appearance Turbid (Clear) A 03/27/22 05:16 Urine pH 5.0 (4.5-7.5) 03/27/22 05:16 Ur Specific [place] 1.014 (1.000-1.030) 03/27/22 05:16 Urine Protein 2+ (Negative) H 03/27/22 05:16 Urine Glucose (UA) Negative (Negative) 03/27/22 05:16 Urine Ketones Trace (Negative) H 03/27/22 05:16 Urine Blood Negative (Negative) 03/27/22 05:16 Urine Nitrite Negative (Negative) 03/27/22 05:16 Urine Bilirubin 1+ (Negative) H 03/27/22 05:16 Urine Urobilinogen Negative (Negative) 03/27/22 05:16 Ur Leukocyte Esterase Trace (Negative) H 03/27/22 05:16 Urine WBC (Auto) 10-30 /hpf (0-5) H 03/27/22 05:16 Urine RBC (Auto) 0-4 /hpf (0-4) 03/27/22 05:16 U Hyaline Cast (Auto) 5-10 /lpf (0-5) H 03/27/22 05:16 U Epithel Cells (Auto) >30 /lpf (0-5) H 03/27/22 05:16 Urine Bacteria (Auto) 1+ (Negative) H 03/27/22 05:16 Ur Renal Epithelial Cell Not Reportable 03/27/22 05:16 Urine Yeast Not Reportable 03/27/22 05:16 Ur Random Creatinine 140.8 mg/dl 03/27/22 12:23 Urine Sodium 30 mmol/L 03/27/22 12:23 Urine Potassium 47.6 mmol/L 03/27/22 12:23 Urine Chloride 21 mmol/L 03/27/22 12:23 SARS-CoV-2, RNA, NAAT NEGATIVE (NEGATIVE) 03/27/22 06:46 Impressions Gallbladder Ultrasound 03/27/22 03:31 ULTRASOUND RIGHT UPPER QUADRANT ABDOMEN CLINICAL HISTORY: Elevated hepatic transaminases. COMPARISON STUDY: Abdominal CT performed earlier the same day 03/27/2022. TECHNIQUE: Real-time, grayscale, and color flow sonography of the right upper quadrant of the abdomen was performed. Images are reviewed in the transverse and longitudinal planes. FINDINGS: Liver: The liver is enlarged, cirrhotic in morphology, and heterogeneous in echotexture. There is nodularity of the hepatic surface contour. There are numerous infiltrative hepatic mass lesions measuring up to 3.2 cm. There is no intrahepatic biliary ductal dilatation. The main portal vein is patent. Gallbladder: No shadowing gallstones are identified. Mild gallbladder wall thickening is nonspecific and likely related to adjacent hepatocellular disease. There is no pericholecystic fluid. A sonographic Moreland's sign is reportedly absent. The common bile duct measures up to 0.6 cm in diameter. Pancreas: Visualized portions of the pancreatic head and body are normal in appearance. Right kidney: Survey images of the right kidney demonstrate normal size and echotexture. There is no hydronephrosis. Ascites: None. IMPRESSION: 1. No acute sonographic abnormality is seen in the right upper quadrant. No gallstones are identified. 2. The liver is enlarged and cirrhotic in morphology. 3. There is evidence of multifocal hepatic metastatic disease, with numerous infiltrative lesions seen throughout the liver. ACT 112: Negative or not required by law. Electronically signed by: Dov Weeks M.D. 03/27/2022 7:18 AM Abdomen/Pelvis CT 03/27/22 04:39 CT SCAN OF THE ABDOMEN AND PELVIS WITHOUT IV CONTRAST CLINICAL HISTORY: Generalized abdominal pain. Elevated hepatic transaminases. Renal insufficiency. COMPARISON STUDY: Renal ultrasound dated 06/09/2008. TECHNIQUE: CT scan of the abdomen and pelvis is performed from the lung bases to the proximal femora. Images are reviewed in the axial, sagittal, and coronal planes. IV contrast was not administered for this examination due to poor renal function. Note that the examination is suboptimal without oral and IV contrast. A dose lowering technique was utilized adhering to the principles of ALARA. Compared FINDINGS: Lung bases: The heart is normal in size and without pericardial effusion. The lung bases are clear noting bibasilar scarring/atelectasis. A small hiatal hernia is noted. Liver: The unenhanced liver is enlarged, measuring 22.8 cm in length. The liver is struck morphology and heterogeneous in attenuation with nodularity of the surface contour. There is evidence of extensive/diffuse hepatic metastatic disease with numerous mass lesions seen throughout the liver. These measure up to 3.3 cm. There is no intrahepatic biliary ductal dilatation. Gallbladder: Unremarkable. Spleen: Normal in size and attenuation. Pancreas: Infiltration and fluid is seen around the distal pancreatic body and tail. The unenhanced pancreas is otherwise grossly unremarkable. The pancreas duct is normal in caliber and no organized peripancreatic fluid collection is seen. Adrenal glands: Unremarkable. Kidneys: The unenhanced kidneys are normal in size and without hydronephrosis. There is a 4 mm nonobstructing left renal calculus. No right renal calculi are identified. A 2.9 cm exophytic lesion arising from the left lower pole meets CT criteria for simple cyst. Abdominal vasculature: The abdominal aorta is normal in course and caliber. Bowel: There is mild colonic diverticulosis without CT evidence of acute diverticulitis. No bowel obstruction is seen. Mild fecal retention is noted throughout the colon. The appendix is normal visualized. Peritoneum: There is trace perihepatic and pelvic ascites. No intraperitoneal free air is seen. There is a fat-containing umbilical hernia. Lymphadenopathy: There are mildly enlarged retroperitoneal lymph nodes. The largest node is in the left periaortic region on image #192 and measures 13 mm in short axis. Pelvic viscera: The prostate gland is markedly enlarged and heterogeneous noting medial lobe hypertrophy. The bladder is decompressed. The wall is thickened/trabeculated indicating chronic outlet obstruction. There are bilateral fat-containing inguinal hernias. Skeletal structures: The skeletal structures are osteopenic. There is mild lumbosacral spondylosis. There is a moderate chronic-appearing compression deformity of T9. No lytic or blastic lesions are seen. There are healed left- sided rib fractures. IMPRESSION: 1. Question acute pancreatitis. Correlate with clinical findings and serum amylase/lipase levels. 2. The liver is enlarged, heterogeneous, and cirrhotic in morphology. 3. There is evidence of multifocal hepatic metastatic disease. 4. Mildly enlarged intraperitoneal lymph nodes are pathologically determined. Metastatic disease is not excluded. 5. Trace abdominopelvic ascites. 6. Left-sided of lithiasis. 7. Additional findings as above. ACT 112: Negative or not required by law. Electronically signed by: Dov Weeks M.D. 03/27/2022 8:[address] 03/27/22 04:40 CT chest diagnostic wo con CT DOSE: 1717.41 mGy.cm CLINICAL HISTORY: 81 years-old Male with upper abd pain, hx of lymphoma, eval for any mass. Acute chest and abdominal pain in a patient with history of lymph lorene TECHNIQUE: Multiaxial CT images of the chest were performed without contrast. A dose lowering technique was utilized adhering to the principles of ALARA. COMPARISON: CT abdomen and pelvis of same day, PET CT 02/11/2007 FINDINGS: Subcentimeter thyroid nodules. No lymphadenopathy identified. The heart is normal in size without pericardial effusion. Moderate coronary artery calcifications. Atherosclerosis of the thoracic aorta without aneurysm. Descending thoracic aortic tortuosity. No pneumothorax, pleural effusion, airspace consolidation or overt pulmonary edema. Subsegmental bibasilar atelectasis versus scarring. Mild emphysema. Scattered solid pulmonary nodules are noted within the upper lung zone prominent distribution bilaterally measuring up to 4 mm, most of which appear to be new from the prior exam. Central airways are patent. Heterogeneity of the liver with trace perihepatic and marginal nodularity. Innumerable masses are present within the liver measuring up to approximately 3 cm. Trace perisplenic fluid also noted. Mild chronic appearing mid thoracic compression deformities. IMPRESSION: 1. Mild emphysema without acute intrathoracic abnormality. 2. Numerous upper lung zone predominant solid pulmonary nodules measure up to 4 mm. Follow-up guidelines provided below. 3. No lymphadenopathy. 4. Innumerable hepatic masses are suggestive of metastasis. Please refer to the CT abdomen and pelvis study of same day for additional findings. Please refer to below summary of Fleischner criteria recommendations for follow- up of incidental CT nodules (Alex Bowen, Guidelines for management of small pulmonary nodules detected on CT scans: A statement from the Fleischner Society, Radiology 237: [phone].) SOLID NODULES Multiple nodules size: <6 mm * Low risk patients: no routine follow-up * high risk patients: optional CT at 12 months Note: newly detected indeterminate nodule in persons 35 years of age or older. * Low risk patients: minimal or absent history of smoking and/or other known risk factors * high risk patients: history of smoking or of other known risk factors (e.g. first degree relative with lung cancer, or exposure to asbestos, radon, uranium) * if a nodule up to 8 mm is partly solid or is ground glass further follow-up is required after 24 months to exclude possible slow growing adenocarcinoma (JOCY) ACT 112: Negative or not required by law. Electronically signed by: Julio Orr M.D. 03/27/2022 7:47 AM Liver Biopsy Ultrasound 03/27/22 13:15 ULTRASOUND-GUIDED CORE NEEDLE BIOPSY OF THE LEFT HEPATIC LOBE MASS HISTORY: Multiple liver metastasis. COMPARISON: None. PROCEDURE: Written informed consent was obtained. The epigastric region was prepped and draped in the usual sterile fashion. 1% lidocaine was used for local anesthesia. A total of one pass using an 18-gauge by 9 cm biopsy device was made through the left hepatic lobe under ultrasound guidance. The specimen was placed in formalin and transferred to the pathology department for further evaluation. The patient tolerated the procedure well. There were no immediate complications. IMPRESSION: Successful ultrasound-guided core needle biopsy of the left hepatic lobe/masses. ACT 112: Negative or not required by law. Electronically signed by: Ismael Little M.D. 03/27/2022 2:30 PM
[2022-03-29] MEDS: TERAZOSIN HCL 5 MG CAP PO SCH (21:28)
[2022-03-30] MEDS: HEPARIN SOD 5,000 UNIT/0.5 ML VIAL SQ SCH ×3 (06:04→21:22)
[2022-03-30 06:49] LABS: Basophils # (auto) 0.08 K/uL (0-0.2); Basophils % (auto) 0.7 %; Eosinophils % (auto) 1.7 %; Hematocrit (blood only) 38.5 % (40.1-51.0); Hemoglobin 13.7 g/dl (14.0-18.0); Immature Granulocytes % (auto) 1.7 %; Lymphocytes # (auto) 0.77 K/uL (1.2-3.4); Lymphocytes % (auto) 6.7 %; Mean Corpuscular Hemoglobin 29.9 pg (25.0-34.0); Mean Corpuscular Hgb Conc 35.6 g/dL (32.0-36.0); Mean Corpuscular Volume 84.1 fL (80.0-100.0); Monocytes # (auto) 0.98 K/uL (0.24-0.82); Monocytes % (auto) 8.5 %; Neutrophils # (auto) 9.28 K/uL (1.4-6.5); Neutrophils % (auto) 80.7 %; Platelet Count 260 K/uL (130-400); RDW Standard Deviation 49.3 fL (36.4-46.3); Red Blood Count 4.58 M/uL (4.63-6.08); White Blood Count 11.51 K/ul (4.8-10.8)
[2022-03-30 07:07] LABS: Albumin Level 2.9 gm/dl (3.4-5.0); BUN Creatinine Ratio 12.5 (10-20); Calcium 8.7 mg/dl (8.5-10.1); Creatinine Clr Calc Pharmacy 10.3 ml/min; Est GFR (Non-African American) 6.9 ml/min; Potassium 5.1 mmol/L (3.5-5.1); Total Protein 5.9 gm/dl (6.0-8.3); Uric Acid 14.8 mg/dl (2.6-7.2)
[2022-03-30] MEDS: PANTOprazole 40 MG TAB PO SCH (08:46)
[2022-03-30] MEDS: allopurinoL 300 MG TAB PO SCH (08:46)
[2022-03-30] MEDS: BRIMONIDINE TARTRATE 0.2% 5ML OPB SCH ×2 (08:47→20:03)
[2022-03-30] MEDS: TIMOLOL MALEATE 0.5% OP SOLN 5 ML BTL OPB SCH ×2 (08:47→20:03)
--- NOTE | 2022-03-30 10:57 | XRay Report ---
SINGLE VIEW CHEST CLINICAL HISTORY: Dyspnea. FINDINGS: An AP, portable, upright chest radiograph is compared to study dated 03/01/2022 and correla pierce with chest CT dated 03/27/2022. The examination is degraded by portable technique and apical lord otic positioning. The cardiomediastinal silhouette is top normal for projection noting atheroscleroti c calcification of the thoracic aorta. Emphysema and chronic interstitial thickening is similar to pr evious. There is mild elevation of the right hemidiaphragm with bibasilar scarring/atelectasis. No ai rspace consolidation, large pleural effusion, or pneumothorax is seen. The skeletal structures are os teopenic. There are numerous chronic/healed bilateral rib fractures. IMPRESSION: Emphysematous change with no active disease in the chest. ACT 112: Negative or not required by law. Electronically signed by: Dov Weeks M.D. 03/30/2022 10:56 AM
--- NOTE | 2022-03-30 11:12 | Nephrology Progress Note ---
Date of Service March 30, 2022 Assessment & Plan (1) Acute kidney failure: Plan: Patient with acute kidney injury likely due to ischemic ATN in setting of malignancy and high uric acid. Creatinine is uptrending to 6.9 today. He has metabolic acidosis as well. Patient has normal renal function at baseline. Patient is non oliguric but but given the trend of labs, he will likely be on dialysis on Friday. We will request PermCath placement by interventional r adiology on Friday. I discussed dialysis in detail with patient and the . Patient is open to doing dialysis. -Continue monitor renal function with a BMP. -Strict input output -Avoid contrast (2) Elevated uric acid in blood: Plan: Likely due to tumor lysis. We will continue allopurinol to 300 mg daily. I am ordering rasburicase 10 mg daily for 3 days. Medication is not available but will be procured by pharmacy. Admission and Anticipated Discharge Date Admission Date: March 27, 2022 Subjective Seen for acute renal failure. at the bedside. He has exertional dyspnea. Legs are swollen. He made about 600 mL of urine yesterday Review of Systems Review of Systems: All other systems were reviewed and negative except as noted in HPI Physical Exam Physical Exam: General exam: Appears comfortable, no acute distress HEENT: Pupils are equal and reactive to light Neck: No JVD, neck is supple trachea is midline Respiratory system: Clear breath sounds bilaterally. Gastrointestinal: Abdomen is soft, non distended, non tender, bowel sounds are present CVS: Regular rate and rhythm. No murmurs, rubs or gallops Musculoskeletal: No joint or muscle tenderness Extremities: Non tender, 1+ edema, peripheral pulses are present Neuro: Oriented, no tremors, no focal neurological deficits Skin: No rashes Results & Data ([facility]) Vital Signs (Past 12 Hours) Vital Signs Temp Pulse Pulse Resp BP BP Pulse Ox 03/30/22 07:52 36.4 C L 80 19 121/73 96 03/30/22 07:42 77 03/30/22 03:21 36.5 C 85 18 102/65 96 03/29/22 23:22 36.6 C 78 18 108/67 97 O2 Del Method 03/30/22 07:52 Room Air 03/30/22 07:42 03/30/22 03:21 Room Air 03/29/22 23:22 Room Air Laboratory Results 03/30/22 06:17 03/30/22 03/30/22 06:17 06:17 WBC 11.51 H RBC 4.58 L MCV 84.1 MCH 29.9 MCHC 35.6 RDW Std Deviation 49.3 H RDW Coeff of Ryan 17.0 H Plt Count 260 MPV 10.0 Phosphorus 6.0 H Albumin 2.9 L
--- NOTE | 2022-03-30 13:55 | Hospitalist Progress Note ---
Date of Service March 30, 2022 Assessment & Plan (1) Liver lesion: (2) Elevated LFTs: Plan: Patient presented with abdominal discomfort at his primary care office on 03/26. Found to have right upper quadrant fullness on examination and elevated LFTs CT abdomen shows enlarged liver, heterogeneous and cirrhotic in morphology along with multifocal hepatic metastatic disease. Also found to have mildly enlarged intra peritoneal lymph node. Patient underwent core needle biopsy 03/27 by radiology as per recommendation by Dr. Sandoval and oncology inpatient. CEA -2.0; within normal limit [place] 1919, alpha-fetoprotein pending Plan; Follow-up on pathology results; also follow-up tumor marker. LFTs presently stable. Plan to obtain triple phase liver MRI/MRCP after kidney function improves. He will follow-up with Dr. Sandoval of [facility] oncology after discharge from the hospital. (3) Acute kidney failure: (4) Elevated uric acid in blood: Plan: Baseline creatinine of 0.9 in February. Creatinine uptrending to 6.8. Uric acid is around 14. Making some urine output Bladder scan negative for retention. CT abdomen did not show hydronephrosis. Plan: -His LUIS EDUARDO is thought secondary to ATN from the hypotension episodes prior to his presentation. His uric acid initially up trended but has stabilized. His potassium, calcium are within normal limits. Phosphorus is elevated in setting of ongoing LUIS EDUARDO. LDH is also mildly elevated. However, there is a possibility of tumor lysis syndrome. Discussed with oncology( Dr. Ravi) and nephrology; agree with administration of rasburicase 10 mg. Discussion done with [facility]'s inpatient pharmacy. They have the medication in formulary and will be able to give it to the pharmacy here. We will administer 2 doses of rasburicase today and tomorrow. -Will need to obtain uric acid level; collect in pre-chilled Na heparin( light green) tube, place immediately in an ice water bath and deliver promptly within 60 mins to currently measure uric acid level. Extensive discussion done with and patient at bedside regarding the discussion above; they have verbalized understanding; and are agreeable with the plan. 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 Chronic conditions; Hypertensionlisinoprilhydrochlorothiazide on hold BPHcontinue on terazosin. Plan DVT heparin Full code Admission and Anticipated Discharge Date Admission Date: March 27, 2022 Subjective Patient seen and examined at bedside. He is comfortably lying in the bed; not in distress. Reports shortness of breath on exertion. Urine output of 530 mL in last 24 hours. Review of Systems Review of Systems: All systems reviewed & are unremarkable except as noted in Subjective Physical Exam Physical Exam: Constitutional: WD/WN, vitals as above, NAD, sitting up in bed, pleasant, conversing easily Respiratory: normal respiratory effort, lungs clear to auscultation, no wheeze, rales, rhonchi. Normal insp/exp effort, no accessory muscle use Cardiovascular: RRR, no murmur, no edema Vessels: no JVD or carotid bruit Chest: normal inspection of chest Abdomen: Hepatomegaly present; soft, nontender. Bowel sound present. Musculoskeletal: no cyanosis or clubbing, extremities motor strength 5/5. 1+ pitting edema present up to knees. Skin: no rashes, warm and dry normal turgor Neurologic: PERRL, EOMI, accommodation nl, no face palsy, no dysarthria CN's II- XI intact bilaterally and moves all extremities Psychiatric: A+Ox3, euthymic affect Lymphatic: no cervical or axillary lymphadenopathy : deferred Results & Data Results & Data ([facility]) Vital Signs (Past 12 Hours) Vital Signs Temp Pulse Pulse Resp BP BP Pulse Ox 03/30/22 12:24 36.4 C L 71 20 110/71 96 03/30/22 07:52 36.4 C L 80 19 121/73 96 03/30/22 07:42 77 03/30/22 03:21 36.5 C 85 18 102/65 96 O2 Del Method 03/30/22 12:24 Room Air 03/30/22 07:52 Room Air 03/30/22 07:42 03/30/22 03:21 Room Air Laboratory Results Laboratory Results WBC 11.51 K/ul (4.8-10.8) H 03/30/22 06:17 RBC 4.58 M/uL (4.63-6.08) L 03/30/22 06:17 Hgb 13.7 g/dl (14.0-18.0) L 03/30/22 06:17 Hct 38.5 % (40.1-51.0) L 03/30/22 06:17 MCV 84.1 fL (80.0-100.0) 03/30/22 06:17 MCH 29.9 pg (25.0-34.0) 03/30/22 06:17 MCHC 35.6 g/dL (32.0-36.0) 03/30/22 06:17 RDW Std Deviation 49.3 fL (36.4-46.3) H 03/30/22 06:17 RDW Coeff of Ryan 17.0 % (11.5-14.5) H 03/30/22 06:17 Plt Count 260 K/uL (130-400) 03/30/22 06:17 MPV 10.0 fL (9.4-12.4) 03/30/22 06:17 Immature Gran % (Auto) 1.7 % 03/30/22 06:17 Neut % (Auto) 80.7 % 03/30/22 06:17 Lymph % (Auto) 6.7 % 03/30/22 06:17 [place] % (Auto) 8.5 % 03/30/22 06:17 Eos % (Auto) 1.7 % 03/30/22 06:17 Baso % (Auto) 0.7 % 03/30/22 06:17 Neut # (Auto) 9.28 K/uL (1.4-6.5) H 03/30/22 06:17 Lymph # (Auto) 0.77 K/uL (1.2-3.4) L 03/30/22 06:17 [place] # (Auto) 0.98 K/uL (0.24-0.82) H 03/30/22 06:17 Eos # (Auto) 0.20 K/uL (0-0.50) 03/30/22 06:17 Baso # (Auto) 0.08 K/uL (0-0.2) 03/30/22 06:17 Immature Gran # (Auto) 0.20 K/uL (0.00-0.02) H 03/30/22 06:17 PT 13.3 Seconds (9.0-12.0) H 03/27/22 13:12 INR 1.3 (0.9-1.1) H 03/27/22 13:12 APTT 27.3 Seconds (21.0-31.0) 03/27/22 13:12 PTT Ratio 1.0 03/27/22 13:12 Sodium 129 mmol/L (136-145) L 03/30/22 06:17 Potassium 5.1 mmol/L (3.5-5.1) 03/30/22 06:17 Chloride 96 mmol/L (98-107) L 03/30/22 06:17 Carbon Dioxide 17 mmol/L (21-32) L 03/30/22 06:17 Anion Gap 16 (3-11) H 03/30/22 06:17 BUN 86 mg/dl (6-23) H 03/30/22 06:17 Creatinine 6.88 mg/dl (0.6-1.4) H* D 03/30/22 06:17 Est Cr Clr Drug Dosing 10.3 ml/min 03/30/22 06:17 Est GFR ( Amer) 8.0 ml/min 03/30/22 06:17 Est GFR (Non-Af Amer) 6.9 ml/min 03/30/22 06:17 BUN/Creatinine Ratio 12.5 (10-20) 03/30/22 06:17 Glucose 83 mg/dl (70-99(Fasting)) 03/30/22 06:17 Estimat Average Glucose 108 mg/dl 03/28/22 05:07 Hemoglobin A1c 5.4 % (4.5-5.6) 03/28/22 05:07 Uric Acid 14.8 mg/dl (2.6-7.2) H 03/30/22 06:17 Calcium 8.7 mg/dl (8.5-10.1) 03/30/22 06:17 Phosphorus 6.0 mg/dl (2.5-4.9) H 03/30/22 06:17 Magnesium 2.2 mg/dl (1.7-2.4) 03/28/22 05:07 Total Bilirubin 5.0 mg/dl (0.2-1.0) H 03/30/22 06:17 Direct Bilirubin 2.2 mg/dl (0-0.2) H 03/28/22 05:07 AST 137 U/L (13-39) H 03/30/22 06:17 ALT 109 U/L (7-52) H 03/30/22 06:17 Alkaline Phosphatase 341 U/L (34-104) H 03/30/22 06:17 Lactate Dehydrogenase 378 U/L (86-244) H 03/28/22 05:07 Total Creatine Kinase 216 U/L (30-223) 03/27/22 03:06 Total Protein 5.9 gm/dl (6.0-8.3) L 03/30/22 06:17 Albumin 2.9 gm/dl (3.4-5.0) L 03/30/22 06:17 Globulin 3.0 gm/dl (2.5-4.0) 03/30/22 06:17 Albumin/Globulin Ratio 1.0 (0.9-2) 03/30/22 06:17 Lipase 135 U/L (11-82) H 03/27/22 03:06 Carcinoembryonic Ag 2.0 ng/ml (0-2.5) 03/27/22 13:12 Urine Color Dark Yellow 03/27/22 05:16 Urine Appearance Turbid (Clear) A 03/27/22 05:16 Urine pH 5.0 (4.5-7.5) 03/27/22 05:16 Ur Specific [place] 1.014 (1.000-1.030) 03/27/22 05:16 Urine Protein 2+ (Negative) H 03/27/22 05:16 Urine Glucose (UA) Negative (Negative) 03/27/22 05:16 Urine Ketones Trace (Negative) H 03/27/22 05:16 Urine Blood Negative (Negative) 03/27/22 05:16 Urine Nitrite Negative (Negative) 03/27/22 05:16 Urine Bilirubin 1+ (Negative) H 03/27/22 05:16 Urine Urobilinogen Negative (Negative) 03/27/22 05:16 Ur Leukocyte Esterase Trace (Negative) H 03/27/22 05:16 Urine WBC (Auto) 10-30 /hpf (0-5) H 03/27/22 05:16 Urine RBC (Auto) 0-4 /hpf (0-4) 03/27/22 05:16 U Hyaline Cast (Auto) 5-10 /lpf (0-5) H 03/27/22 05:16 U Epithel Cells (Auto) >30 /lpf (0-5) H 03/27/22 05:16 Urine Bacteria (Auto) 1+ (Negative) H 03/27/22 05:16 Ur Renal Epithelial Cell Not Reportable 03/27/22 05:16 Urine Yeast Not Reportable 03/27/22 05:16 Ur Random Creatinine 140.8 mg/dl 03/27/22 12:23 Urine Sodium 30 mmol/L 03/27/22 12:23 Urine Potassium 47.6 mmol/L 03/27/22 12:23 Urine Chloride 21 mmol/L 03/27/22 12:23 SARS-CoV-2, RNA, NAAT NEGATIVE (NEGATIVE) 03/27/22 06:46 Impressions Gallbladder Ultrasound 03/27/22 03:31 ULTRASOUND RIGHT UPPER QUADRANT ABDOMEN CLINICAL HISTORY: Elevated hepatic transaminases. COMPARISON STUDY: Abdominal CT performed earlier the same day 03/27/2022. TECHNIQUE: Real-time, grayscale, and color flow sonography of the right upper quadrant of the abdomen was performed. Images are reviewed in the transverse and longitudinal planes. FINDINGS: Liver: The liver is enlarged, cirrhotic in morphology, and heterogeneous in echotexture. There is nodularity of the hepatic surface contour. There are numerous infiltrative hepatic mass lesions measuring up to 3.2 cm. There is no intrahepatic biliary ductal dilatation. The main portal vein is patent. Gallbladder: No shadowing gallstones are identified. Mild gallbladder wall thickening is nonspecific and likely related to adjacent hepatocellular disease. There is no pericholecystic fluid. A sonographic Moreland's sign is reportedly absent. The common bile duct measures up to 0.6 cm in diameter. Pancreas: Visualized portions of the pancreatic head and body are normal in appearance. Right kidney: Survey images of the right kidney demonstrate normal size and echotexture. There is no hydronephrosis. Ascites: None. IMPRESSION: 1. No acute sonographic abnormality is seen in the right upper quadrant. No gallstones are identified. 2. The liver is enlarged and cirrhotic in morphology. 3. There is evidence of multifocal hepatic metastatic disease, with numerous infiltrative lesions seen throughout the liver. ACT 112: Negative or not required by law. Electronically signed by: Dov Weeks M.D. 03/27/2022 7:18 AM Abdomen/Pelvis CT 03/27/22 04:39 CT SCAN OF THE ABDOMEN AND PELVIS WITHOUT IV CONTRAST CLINICAL HISTORY: Generalized abdominal pain. Elevated hepatic transaminases. Renal insufficiency. COMPARISON STUDY: Renal ultrasound dated 06/09/2008. TECHNIQUE: CT scan of the abdomen and pelvis is performed from the lung bases to the proximal femora. Images are reviewed in the axial, sagittal, and coronal planes. IV contrast was not administered for this examination due to poor renal function. Note that the examination is suboptimal without oral and IV contrast. A dose lowering technique was utilized adhering to the principles of ALARA. Compared FINDINGS: Lung bases: The heart is normal in size and without pericardial effusion. The lung bases are clear noting bibasilar scarring/atelectasis. A small hiatal hernia is noted. Liver: The unenhanced liver is enlarged, measuring 22.8 cm in length. The liver is struck morphology and heterogeneous in attenuation with nodularity of the surface contour. There is evidence of extensive/diffuse hepatic metastatic disease with numerous mass lesions seen throughout the liver. These measure up to 3.3 cm. There is no intrahepatic biliary ductal dilatation. Gallbladder: Unremarkable. Spleen: Normal in size and attenuation. Pancreas: Infiltration and fluid is seen around the distal pancreatic body and tail. The unenhanced pancreas is otherwise grossly unremarkable. The pancreas duct is normal in caliber and no organized peripancreatic fluid collection is seen. Adrenal glands: Unremarkable. Kidneys: The unenhanced kidneys are normal in size and without hydronephrosis. There is a 4 mm nonobstructing left renal calculus. No right renal calculi are identified. A 2.9 cm exophytic lesion arising from the left lower pole meets CT criteria for simple cyst. Abdominal vasculature: The abdominal aorta is normal in course and caliber. Bowel: There is mild colonic diverticulosis without CT evidence of acute diverticulitis. No bowel obstruction is seen. Mild fecal retention is noted throughout the colon. The appendix is normal visualized. Peritoneum: There is trace perihepatic and pelvic ascites. No intraperitoneal free air is seen. There is a fat-containing umbilical hernia. Lymphadenopathy: There are mildly enlarged retroperitoneal lymph nodes. The largest node is in the left periaortic region on image #192 and measures 13 mm in short axis. Pelvic viscera: The prostate gland is markedly enlarged and heterogeneous noting medial lobe hypertrophy. The bladder is decompressed. The wall is thickened/trabeculated indicating chronic outlet obstruction. There are bilateral fat-containing inguinal hernias. Skeletal structures: The skeletal structures are osteopenic. There is mild lumbosacral spondylosis. There is a moderate chronic-appearing compression deformity of T9. No lytic or blastic lesions are seen. There are healed left- sided rib fractures. IMPRESSION: 1. Question acute pancreatitis. Correlate with clinical findings and serum amylase/lipase levels. 2. The liver is enlarged, heterogeneous, and cirrhotic in morphology. 3. There is evidence of multifocal hepatic metastatic disease. 4. Mildly enlarged intraperitoneal lymph nodes are pathologically determined. Metastatic disease is not excluded. 5. Trace abdominopelvic ascites. 6. Left-sided of lithiasis. 7. Additional findings as above. ACT 112: Negative or not required by law. Electronically signed by: Dov Weeks M.D. 03/27/2022 8:[address] 03/27/22 04:40 CT chest diagnostic wo con CT DOSE: 1717.41 mGy.cm CLINICAL HISTORY: 81 years-old Male with upper abd pain, hx of lymphoma, eval for any mass. Acute chest and abdominal pain in a patient with history of lymphoma TECHNIQUE: Multiaxial CT images of the chest were performed without contrast. A dose lowering technique was utilized adhering to the principles of ALARA. COMPARISON: CT abdomen and pelvis of same day, PET CT 02/11/2007 FINDINGS: Subcentimeter thyroid nodules. No lymphadenopathy identified. The heart is normal in size without pericardial effusion. Moderate coronary artery calcifications. Atherosclerosis of the thoracic aorta without aneurysm. Descending thoracic aortic tortuosity. No pneumothorax, pleural effusion, airspace consolidation or overt pulmonary edema. Subsegmental bibasilar atelectasis versus scarring. Mild emphysema. Scattered solid pulmonary nodules are noted within the upper lung zone prominent distribution bilaterally measuring up to 4 mm, most of which appear to be new from the prior exam. Central airways are patent. Heterogeneity of the liver with trace perihepatic and marginal nodularity. Innumerable masses are present within the liver measuring up to approximately 3 cm. Trace perisplenic fluid also noted. Mild chronic appearing mid thoracic compression deformities. IMPRESSION: 1. Mild emphysema without acute intrathoracic abnormality. 2. Numerous upper lung zone predominant solid pulmonary nodules measure up to 4 mm. Follow-up guidelines provided below. 3. No lymphadenopathy. 4. Innumerable hepatic masses are suggestive of metastasis. Please refer to the CT abdomen and pelvis study of same day for additional findings. Please refer to below summary of Fleischner criteria recommendations for follow- up of incidental CT nodules (Alex Bowen, Guidelines for management of small pulmonary nodules detected on CT scans: A statement from the Fleischner Society, Radiology 237: [id number].) SOLID NODULES Multiple nodules size: <6 mm * Low risk patients: no routine follow-up * high risk patients: optional CT at 12 months Note: newly detected indeterminate nodule in persons 35 years of age or older. * Low risk patients: minimal or absent history of smoking and/or other known risk factors * high risk patients: history of smoking or of other known risk factors (e.g. first degree relative with lung cancer, or exposure to asbestos, radon, uranium) * if a nodule up to 8 mm is partly solid or is ground glass further follow-up is required after 24 months to exclude possible slow growing adenocarcinoma (JOCY) ACT 112: Negative or not required by law. Electronically signed by: Julio Orr M.D. 03/27/2022 7:47 AM Liver Biopsy Ultrasound 03/27/22 13:15 ULTRASOUND-GUIDED CORE NEEDLE BIOPSY OF THE LEFT HEPATIC LOBE MASS HISTORY: Multiple liver metastasis. COMPARISON: None. PROCEDURE: Written informed consent was obtained. The epigastric region was prepped and draped in the usual sterile fashion. 1% lidocaine was used for local anesthesia. A total of one pass using an 18-gauge by 9 cm biopsy device was made through the left hepatic lobe under ultrasound guidance. The specimen was placed in formalin and transferred to the pathology department for further evaluation. The patient tolerated the procedure well. There were no immediate complications. IMPRESSION: Successful ultrasound-guided core needle biopsy of the left hepatic lobe/masses. ACT 112: Negative or not required by law. Electronically signed by: Ismael Little M.D. 03/27/2022 2:30 PM Chest X-Ray 03/30/22 10:08 SINGLE VIEW CHEST CLINICAL HISTORY: Dyspnea. FINDINGS: An AP, portable, upright chest radiograph is compared to study dated 03/01/2022 and correlated with chest CT dated 03/27/2022. The examination is degraded by portable technique and apical lordotic positioning. The cardiomediastinal silhouette is top normal for projection noting atherosclerotic calcification of the thoracic aorta. Emphysema and chronic interstitial thickening is similar to previous. There is mild elevation of the right hemidiaphragm with bibasilar scarring/atelectasis. No airspace consolidation, large pleural effusion, or pneumothorax is seen. The skeletal structures are osteopenic. There are numerous chronic/healed bilateral rib fractures. IMPRESSION: Emphysematous change with no active disease in the chest. ACT 112: Negative or not required by law. Electronically signed by: Dov Weeks M.D. 03/30/2022 10:56 AM
[2022-03-30] MEDS ORDERED: RASBURICASE 3 MG in SODIUM CHLORIDE 0.9% 50 ML IV SCH (15:45)
--- NOTE | 2022-03-30 16:05 | Communication Note ---
Date of Service: March 30, 2022 Discussed Rasburicase dosing with Oncology. Will give 3mg iv once. Repeat Uric acid in 6 hours at 10 pm. Collect in pre-chilled Na heparin( light green) tube, place immediately in an ice water bath and deliver promptly within 60 mins. Special instructions given to labs. If persistently elevated, will give another 3mg dose
[2022-03-30] MEDS: TERAZOSIN HCL 5 MG CAP PO SCH (20:03)
[2022-03-30] MEDS ORDERED: RASBURICASE 3 MG in SODIUM CHLORIDE 0.9% 50 ML IV ONE (23:00)
[2022-03-31] MEDS: HEPARIN SOD 5,000 UNIT/0.5 ML VIAL SQ SCH (06:21)
[2022-03-31] MEDS ORDERED: SODIUM CHLORIDE 0.65% NA SOLN 45 ML (OCEAN) PRN (06:37)
[2022-03-31 06:47] LABS: Basophils # (auto) 0.07 K/uL (0-0.2); Basophils % (auto) 0.5 %; Eosinophils # (auto) 0.15 K/uL (0-0.50); Eosinophils % (auto) 1.2 %; Hematocrit (blood only) 37.1 % (40.1-51.0); Hemoglobin 13.3 g/dl (14.0-18.0); Immature Granulocytes # (auto) 0.21 K/uL (0.00-0.02); Immature Granulocytes % (auto) 1.6 %; Lymphocytes # (auto) 0.62 K/uL (1.2-3.4); Lymphocytes % (auto) 4.8 %; Mean Corpuscular Hemoglobin 30.5 pg (25.0-34.0); Mean Corpuscular Hgb Conc 35.8 g/dL (32.0-36.0); Mean Corpuscular Volume 85.1 fL (80.0-100.0); Mean Platelet Volume 10.5 fL (9.4-12.4); Monocytes # (auto) 1.04 K/uL (0.24-0.82); Neutrophils # (auto) 10.87 K/uL (1.4-6.5); Neutrophils % (auto) 83.9 %; Platelet Count 220 K/uL (130-400); RDW Coefficient of Variation 15.6 % (11.5-14.5); RDW Standard Deviation 46.5 fL (36.4-46.3); Red Blood Count 4.36 M/uL (4.63-6.08); White Blood Count 12.96 K/ul (4.8-10.8)
[2022-03-31 07:13] LABS: Albumin Globulin Ratio 1.1 (0.9-2); BUN Creatinine Ratio 12.8 (10-20); Bilirubin,Total 5.8 mg/dl (0.2-1.0); Calcium 8.8 mg/dl (8.5-10.1); Creatinine Clr Calc Pharmacy 9.4 ml/min; Est GFR (African American) 7.2 ml/min; Est GFR (Non-African American) 6.2 ml/min; Globulin 2.7 gm/dl (2.5-4.0); Potassium 5.1 mmol/L (3.5-5.1); Total Protein 5.7 gm/dl (6.0-8.3)
[2022-03-31] MEDS: BRIMONIDINE TARTRATE 0.2% 5ML OPB SCH ×2 (08:57→21:09)
[2022-03-31] MEDS: allopurinoL 300 MG TAB PO SCH (08:57)
[2022-03-31] MEDS: PANTOprazole 40 MG TAB PO SCH (08:57)
[2022-03-31] MEDS: TIMOLOL MALEATE 0.5% OP SOLN 5 ML BTL OPB SCH ×2 (08:58→21:09)
--- NOTE | 2022-03-31 10:34 | Hospitalist Progress Note ---
Date of Service March 31, 2022 Assessment & Plan (1) Liver lesion: (2) Elevated LFTs: Plan: Patient presented with abdominal discomfort at his primary care office on 03/26. Found to have right upper quadrant fullness on examination and elevated LFTs CT abdomen shows enlarged liver, heterogeneous and cirrhotic in morphology along with multifocal hepatic metastatic disease. Also found to have mildly enlarged intra peritoneal lymph node. Patient underwent core needle biopsy 03/27 by radiology as per recommendation by Dr. Sandoval and oncology inpatient. CEA -2.0; within normal limit [place] 1919, alpha-fetoprotein pending Plan; Follow-up on pathology results; also follow-up tumor marker. LFTs presently stable. Plan to obtain triple phase liver MRI/MRCP after kidney function improves. He will follow-up with Dr. Sandoval of [facility] oncology after discharge from the hospital. (3) Acute kidney failure: (4) Elevated uric acid in blood: Plan: Baseline creatinine of 0.9 in February. Creatinine uptrending to 6.8. Uric acid is around 7.9 today Bladder scan negative for retention. CT abdomen did not show hydronephrosis. Status post 2 doses of rasburicase 3 mg. Plan: -Discussed with nephrology; recommend dialysis tomorrow morning. Vascular surgery consulted and informed regarding permacath placement. Patient to be n.p.o. overnight. 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 Chronic conditions; Hypertensionlisinoprilhydrochlorothiazide on hold BPHcontinue on terazosin. Plan DVT heparin on hold for now for procedure tomorrow. Full code Admission and Anticipated Discharge Date Admission Date: March 27, 2022 Subjective Patient seen and examined at bedside. He reports exertional shortness of breath. No fever, chills, chest pain, abdominal discomfort. He received 2 doses of rasburicase 3 mg as per recommendation by oncology. Review of Systems Review of Systems: All systems reviewed & are unremarkable except as noted in Subjective Physical Exam Physical Exam: Constitutional: WD/WN, vitals as above, NAD, sitting up in bed, pleasant, conversing easily Respiratory: normal respiratory effort, lungs clear to auscultation, no wheeze, rales, rhonchi. Normal insp/exp effort, no accessory muscle use Cardiovascular: RRR, no murmur, no edema Vessels: no JVD or carotid bruit Chest: normal inspection of chest Abdomen: Hepatomegaly present; soft, nontender. Bowel sound present. Musculoskeletal: no cyanosis or clubbing, extremities motor strength 5/5. 1+ pitting edema present up to knees. Skin: no rashes, warm and dry normal turgor Neurologic: PERRL, EOMI, accommodation nl, no face palsy, no dysarthria CN's II- XI intact bilaterally and moves all extremities Psychiatric: A+Ox3, euthymic affect Lymphatic: no cervical or axillary lymphadenopathy : deferred Results & Data Results & Data ([facility]) Vital Signs (Past 12 Hours) Vital Signs Temp Pulse Pulse Resp BP Pulse Ox O2 Del Method 03/31/22 07:22 36.3 C L 84 16 120/68 96 Room Air 03/31/22 02:52 36.4 C L 80 19 115/62 94 Room Air 03/31/22 00:00 78 03/30/22 23:44 76 19 114/58 L 96 Room Air 03/30/22 23:00 36.4 C L 81 20 94/73 L 96 Room Air Laboratory Results Laboratory Results WBC 12.96 K/ul (4.8-10.8) H 03/31/22 05:58 RBC 4.36 M/uL (4.63-6.08) L 03/31/22 05:58 Hgb 13.3 g/dl (14.0-18.0) L 03/31/22 05:58 Hct 37.1 % (40.1-51.0) L 03/31/22 05:58 MCV 85.1 fL (80.0-100.0) 03/31/22 05:58 MCH 30.5 pg (25.0-34.0) 03/31/22 05:58 MCHC 35.8 g/dL (32.0-36.0) 03/31/22 05:58 RDW Std Deviation 46.5 fL (36.4-46.3) H 03/31/22 05:58 RDW Coeff of Ryan 15.6 % (11.5-14.5) H 03/31/22 05:58 Plt Count 220 K/uL (130-400) 03/31/22 05:58 MPV 10.5 fL (9.4-12.4) 03/31/22 05:58 Immature Gran % (Auto) 1.6 % 03/31/22 05:58 Neut % (Auto) 83.9 % 03/31/22 05:58 Lymph % (Auto) 4.8 % 03/31/22 05:58 Benson % (Auto) 8.0 % 03/31/22 05:58 Eos % (Auto) 1.2 % 03/31/22 05:58 Baso % (Auto) 0.5 % 03/31/22 05:58 Neut # (Auto) 10.87 K/uL (1.4-6.5) H 03/31/22 05:58 Lymph # (Auto) 0.62 K/uL (1.2-3.4) L 03/31/22 05:58 Benson # (Auto) 1.04 K/uL (0.24-0.82) H 03/31/22 05:58 Eos # (Auto) 0.15 K/uL (0-0.50) 03/31/22 05:58 Baso # (Auto) 0.07 K/uL (0-0.2) 03/31/22 05:58 Immature Gran # (Auto) 0.21 K/uL (0.00-0.02) H 03/31/22 05:58 PT 13.3 Seconds (9.0-12.0) H 03/27/22 13:12 INR 1.3 (0.9-1.1) H 03/27/22 13:12 APTT 27.3 Seconds (21.0-31.0) 03/27/22 13:12 PTT Ratio 1.0 03/27/22 13:12 Sodium 129 mmol/L (136-145) L 03/31/22 05:58 Potassium 5.1 mmol/L (3.5-5.1) 03/31/22 05:58 Chloride 96 mmol/L (98-107) L 03/31/22 05:58 Carbon Dioxide 15 mmol/L (21-32) L 03/31/22 05:58 Anion Gap 18 (3-11) H 03/31/22 05:58 BUN 96 mg/dl (6-23) H 03/31/22 05:58 Creatinine 7.50 mg/dl (0.6-1.4) H* D 03/31/22 05:58 Est Cr Clr Drug Dosing 9.4 ml/min 03/31/22 05:58 Est GFR ( Amer) 7.2 ml/min 03/31/22 05:58 Est GFR (Non-Af Amer) 6.2 ml/min 03/31/22 05:58 BUN/Creatinine Ratio 12.8 (10-20) 03/31/22 05:58 Glucose 84 mg/dl (70-99(Fasting)) 03/31/22 05:58 Estimat Average Glucose 108 mg/dl 03/28/22 05:07 Hemoglobin A1c 5.4 % (4.5-5.6) 03/28/22 05:07 Uric Acid 7.9 mg/dl (2.6-7.2) H 03/31/22 08:11 Calcium 8.8 mg/dl (8.5-10.1) 03/31/22 05:58 Phosphorus 6.0 mg/dl (2.5-4.9) H 03/30/22 06:17 Magnesium 2.2 mg/dl (1.7-2.4) 03/28/22 05:07 Total Bilirubin 5.8 mg/dl (0.2-1.0) H 03/31/22 05:58 Direct Bilirubin 2.2 mg/dl (0-0.2) H 03/28/22 05:07 AST 141 U/L (13-39) H 03/31/22 05:58 ALT 110 U/L (7-52) H 03/31/22 05:58 Alkaline Phosphatase 352 U/L (34-104) H 03/31/22 05:58 Lactate Dehydrogenase 378 U/L (86-244) H 03/28/22 05:07 Total Creatine Kinase 216 U/L (30-223) 03/27/22 03:06 Total Protein 5.7 gm/dl (6.0-8.3) L 03/31/22 05:58 Albumin 3.0 gm/dl (3.4-5.0) L 03/31/22 05:58 Globulin 2.7 gm/dl (2.5-4.0) 03/31/22 05:58 Albumin/Globulin Ratio 1.1 (0.9-2) 03/31/22 05:58 Lipase 135 U/L (11-82) H 03/27/22 03:06 Carcinoembryonic Ag 2.0 ng/ml (0-2.5) 03/27/22 13:12 Urine Color Dark Yellow 03/27/22 05:16 Urine Appearance Turbid (Clear) A 03/27/22 05:16 Urine pH 5.0 (4.5-7.5) 03/27/22 05:16 Ur Specific Oakley 1.014 (1.000-1.030) 03/27/22 05:16 Urine Protein 2+ (Negative) H 03/27/22 05:16 Urine Glucose (UA) Negative (Negative) 03/27/22 05:16 Urine Ketones Trace (Negative) H 03/27/22 05:16 Urine Blood Negative (Negative) 03/27/22 05:16 Urine Nitrite Negative (Negative) 03/27/22 05:16 Urine Bilirubin 1+ (Negative) H 03/27/22 05:16 Urine Urobilinogen Negative (Negative) 03/27/22 05:16 Ur Leukocyte Esterase Trace (Negative) H 03/27/22 05:16 Urine WBC (Auto) 10-30 /hpf (0-5) H 03/27/22 05:16 Urine RBC (Auto) 0-4 /hpf (0-4) 03/27/22 05:16 U Hyaline Cast (Auto) 5-10 /lpf (0-5) H 03/27/22 05:16 U Epithel Cells (Auto) >30 /lpf (0-5) H 03/27/22 05:16 Urine Bacteria (Auto) 1+ (Negative) H 03/27/22 05:16 Ur Renal Epithelial Cell Not Reportable 03/27/22 05:16 Urine Yeast Not Reportable 03/27/22 05:16 Ur Random Creatinine 140.8 mg/dl 03/27/22 12:23 Urine Sodium 30 mmol/L 03/27/22 12:23 Urine Potassium 47.6 mmol/L 03/27/22 12:23 Urine Chloride 21 mmol/L 03/27/22 12:23 SARS-CoV-2, RNA, NAAT NEGATIVE (NEGATIVE) 03/27/22 06:46 Impressions Gallbladder Ultrasound 03/27/22 03:31 ULTRASOUND RIGHT UPPER QUADRANT ABDOMEN CLINICAL HISTORY: Elevated hepatic transaminases. COMPARISON STUDY: Abdominal CT performed earlier the same day 03/27/2022. TECHNIQUE: Real-time, grayscale, and color flow sonography of the right upper quadrant of the abdomen was performed. Images are reviewed in the transverse and longitudinal planes. FINDINGS: Liver: The liver is enlarged, cirrhotic in morphology, and heterogeneous in echotexture. There is nodularity of the hepatic surface contour. There are numerous infiltrative hepatic mass lesions measuring up to 3.2 cm. There is no intrahepatic biliary ductal dilatation. The main portal vein is patent. Gallbladder: No shadowing gallstones are identified. Mild gallbladder wall thickening is nonspecific and likely related to adjacent hepatocellular disease. There is no pericholecystic fluid. A sonographic Moreland's sign is reportedly absent. The common bile duct measures up to 0.6 cm in diameter. Pancreas: Visualized portions of the pancreatic head and body are normal in appearance. Right kidney: Survey images of the right kidney demonstrate normal size and echotexture. There is no hydronephrosis. Ascites: None. IMPRESSION: 1. No acute sonographic abnormality is seen in the right upper quadrant. No gallstones are identified. 2. The liver is enlarged and cirrhotic in morphology. 3. There is evidence of multifocal hepatic metastatic disease, with numerous infiltrative lesions seen throughout the liver. ACT 112: Negative or not required by law. Electronically signed by: Dov Weeks M.D. 03/27/2022 7:18 AM Abdomen/Pelvis CT 03/27/22 04:39 CT SCAN OF THE ABDOMEN AND PELVIS WITHOUT IV CONTRAST CLINICAL HISTORY: Generalized abdominal pain. Elevated hepatic transaminases. Renal insufficiency. COMPARISON STUDY: Renal ultrasound dated 06/09/2008. TECHNIQUE: CT scan of the abdomen and pelvis is performed from the lung bases to the proximal femora. Images are reviewed in the axial, sagittal, and coronal planes. IV contrast was not administered for this examination due to poor renal function. Note that the examination is suboptimal without oral and IV contrast. A dose lowering technique was utilized adhering to the principles of ALARA. Compared FINDINGS: Lung bases: The heart is normal in size and without pericardial effusion. The lung bases are clear noting bibasilar scarring/atelectasis. A small hiatal hernia is noted. Liver: The unenhanced liver is enlarged, measuring 22.8 cm in length. The liver is struck morphology and heterogeneous in attenuation with nodularity of the surface contour. There is evidence of extensive/diffuse hepatic metastatic disease with numerous mass lesions seen throughout the liver. These measure up to 3.3 cm. There is no intrahepatic biliary ductal dilatation. Gallbladder: Unremarkable. Spleen: Normal in size and attenuation. Pancreas: Infiltration and fluid is seen around the distal pancreatic body and tail. The unenhanced pancreas is otherwise grossly unremarkable. The pancreas duct is normal in caliber and no organized peripancreatic fluid collection is seen. Adrenal glands: Unremarkable. Kidneys: The unenhanced kidneys are normal in size and without hydronephrosis. There is a 4 mm nonobstructing left renal calculus. No right renal calculi are identified. A 2.9 cm exophytic lesion arising from the left lower pole meets CT criteria for simple cyst. Abdominal vasculature: The abdominal aorta is normal in course and caliber. Bowel: There is mild colonic diverticulosis without CT evidence of acute diverticulitis. No bowel obstruction is seen. Mild fecal retention is noted throughout the colon. The appendix is normal visualized. Peritoneum: There is trace perihepatic and pelvic ascites. No intraperitoneal free air is seen. There is a fat-containing umbilical hernia. Lymphadenopathy: There are mildly enlarged retroperitoneal lymph nodes. The largest node is in the left periaortic region on image #192 and measures 13 mm in short axis. Pelvic viscera: The prostate gland is markedly enlarged and heterogeneous noting medial lobe hypertrophy. The bladder is decompressed. The wall is thickened/trabeculated indicating chronic outlet obstruction. There are bilateral fat-containing inguinal hernias. Skeletal structures: The skeletal structures are osteopenic. There is mild lumbosacral spondylosis. There is a moderate chronic-appearing compression deformity of T9. No lytic or blastic lesions are seen. There are healed left- sided rib fractures. IMPRESSION: 1. Question acute pancreatitis. Correlate with clinical findings and serum amylase/lipase levels. 2. The liver is enlarged, heterogeneous, and cirrhotic in morphology. 3. There is evidence of multifocal hepatic metastatic disease. 4. Mildly enlarged intraperitoneal lymph nodes are pathologically determined. Metastatic disease is not excluded. 5. Trace abdominopelvic ascites. 6. Left-sided of lithiasis. 7. Additional findings as above. ACT 112: Negative or not required by law. Electronically signed by: Dov Weeks M.D. 03/27/2022 8:[address] 03/27/22 04:40 CT chest diagnostic wo con CT DOSE: 1717.41 mGy.cm CLINICAL HISTORY: 81 years-old Male with upper abd pain, hx of lymphoma, eval for any mass. Acute chest and abdominal pain in a patient with history of lymphoma TECHNIQUE: Multiaxial CT images of the chest were performed without contrast. A dose lowering technique was utilized adhering to the principles of ALARA. COMPARISON: CT abdomen and pelvis of same day, PET CT 02/11/2007 FINDINGS: Subcentimeter thyroid nodules. No lymphadenopathy identified. The heart is normal in size without pericardial effusion. Moderate coronary artery calcifications. Atherosclerosis of the thoracic aorta without aneurysm. Descending thoracic aortic tortuosity. No pneumothorax, pleural effusion, airspace consolidation or overt pulmonary edema. Subsegmental bibasilar atelectasis versus scarring. Mild emphysema. Scattered solid pulmonary nodules are noted within the upper lung zone prominent distribution bilaterally measuring up to 4 mm, most of which appear to be new from the prior exam. Central airways are patent. Heterogeneity of the liver with trace perihepatic and marginal nodularity. Innumerable masses are present within the liver measuring up to approximately 3 cm. Trace perisplenic fluid also noted. Mild chronic appearing mid thoracic compression deformities. IMPRESSION: 1. Mild emphysema without acute intrathoracic abnormality. 2. Numerous upper lung zone predominant solid pulmonary nodules measure up to 4 mm. Follow-up guidelines provided below. 3. No lymphadenopathy. 4. Innumerable hepatic masses are suggestive of metastasis. Please refer to the CT abdomen and pelvis study of same day for additional findings. Please refer to below summary of Fleischner criteria recommendations for follow- up of incidental CT nodules (Alex Bowen, Guidelines for management of small pulmonary nodules detected on CT scans: A statement from the Fleischner Society, Radiology 237: [id number].) SOLID NODULES Multiple nodules size: <6 mm * Low risk patients: no routine follow-up * high risk patients: optional CT at 12 months Note: newly detected indeterminate nodule in persons 35 years of age or older. * Low risk patients: minimal or absent history of smoking and/or other known risk factors * high risk patients: history of smoking or of other known risk factors (e.g. first degree relative with lung cancer, or exposure to asbestos, radon, uranium) * if a nodule up to 8 mm is partly solid or is ground glass further follow-up is required after 24 months to exclude possible slow growing adenocarcinoma (JOCY) ACT 112: Negative or not required by law. Electronically signed by: Julio Orr M.D. 03/27/2022 7:47 AM Liver Biopsy Ultrasound 03/27/22 13:15 ULTRASOUND-GUIDED CORE NEEDLE BIOPSY OF THE LEFT HEPATIC LOBE MASS HISTORY: Multiple liver metastasis. COMPARISON: None. PROCEDURE: Written informed consent was obtained. The epigastric region was prepped and draped in the usual sterile fashion. 1% lidocaine was used for local anesthesia. A total of one pass using an 18-gauge by 9 cm biopsy device was made through the left hepatic lobe under ultrasound guidance. The specimen was placed in formalin and transferred to the pathology department for further evaluation. The patient tolerated the procedure well. There were no immediate complications. IMPRESSION: Successful ultrasound-guided core needle biopsy of the left hepatic lobe/masses. ACT 112: Negative or not required by law. Electronically signed by: Ismael Little M.D. 03/27/2022 2:30 PM Chest X-Ray 03/30/22 10:08 SINGLE VIEW CHEST CLINICAL HISTORY: Dyspnea. FINDINGS: An AP, portable, upright chest radiograph is compared to study dated 03/01/2022 and correlated with chest CT dated 03/27/2022. The examination is degraded by portable technique and apical lordotic positioning. The cardiomediastinal silhouette is top normal for projection noting atherosclerotic calcification of the thoracic aorta. Emphysema and chronic interstitial thick ening is similar to previous. There is mild elevation of the right hemidiaphragm with bibasilar scarring/atelectasis. No airspace consolidation, large pleural effusion, or pneumothorax is seen. The skeletal structures are osteopenic. There are numerous chronic/healed bilateral rib fractures. IMPRESSION: Emphysematous change with no active disease in the chest. ACT 112: Negative or not required by law. Electronically signed by: Dov Weeks M.D. 03/30/2022 10:56 AM
--- NOTE | 2022-03-31 11:26 | Nephrology Progress Note ---
Date of Service March 31, 2022 Assessment & Plan (1) Acute kidney failure: Plan: Patient with acute kidney injury likely due to ischemic ATN in setting of malignancy and high uric acid. Creatinine is uptrending to 7.5 today. He has metabolic acidosis as well. Patient has normal renal function at baseline. Patient is non oliguric but but given the trend of labs, he will likely be on dialysis on Friday. We will request PermCath placement by interventional r adiology on Friday. Hospitalist discussed with Dr. Fatima and he is willing to place PermCath on Friday at 10 AM. Patient should be n.p.o. from midnight. -We will plan dialysis tomorrow afternoon after permacath placement -Continue monitor renal function with a BMP. -Strict input output -Avoid contrast (2) Elevated uric acid in blood: Plan: Likely due to tumor lysis. We will stop allopurinol. Uric acid is improving on rasburicase. Uric acid of 7.9 today. Admission and Anticipated Discharge Date Admission Date: March 27, 2022 Subjective Seen for acute renal failure. No shortness of breath. Legs are mildly swollen. Urine output is about the same. Creatinine uptrending. Review of Systems Review of Systems: All other systems were reviewed and negative except as noted in HPI Physical Exam Physical Exam: General exam: Appears comfortable, no acute distress HEENT: Pupils are equal and reactive to light Neck: No JVD, neck is supple trachea is midline Respiratory system: Clear breath sounds bilaterally. Gastrointestinal: Abdomen is soft, non distended, non tender, bowel sounds are present CVS: Regular rate and rhythm. No murmurs, rubs or gallops Musculoskeletal: No joint or muscle tenderness Extremities: Non tender, 1+ edema, peripheral pulses are present Neuro: Oriented, no tremors, no focal neurological deficits Skin: No rashes Results & Data ([facility]) Vital Signs (Past 12 Hours) Vital Signs Temp Pulse Pulse Resp BP BP Pulse Ox 03/31/22 10:59 36.5 C 78 16 126/62 94 03/31/22 07:22 36.3 C L 84 16 120/68 96 03/31/22 02:52 36.4 C L 80 19 115/62 94 03/31/22 00:00 78 03/30/22 23:44 76 19 114/58 L 96 O2 Del Method 03/31/22 10:59 Room Air 03/31/22 07:22 Room Air 03/31/22 02:52 Room Air 03/31/22 00:00 03/30/22 23:44 Room Air Laboratory Results 03/31/22 05:58 03/31/22 03/31/22 05:58 05:58 WBC 12.96 H RBC 4.36 L MCV 85.1 MCH 30.5 MCHC 35.8 RDW Std Deviation 46.5 H RDW Coeff of Ryan 15.6 H Plt Count 220 MPV 10.5 Albumin 3.0 L
[2022-03-31] MEDS ORDERED: RASBURICASE 3 MG in SODIUM CHLORIDE 0.9% 50 ML IV SCH (12:30)
[2022-03-31] MEDS: TERAZOSIN HCL 5 MG CAP PO SCH (21:09)
[2022-04-01 07:38] LABS: Basophils # (auto) 0.06 K/uL (0-0.2); Basophils % (auto) 0.5 %; Eosinophils # (auto) 0.13 K/uL (0-0.50); Hematocrit (blood only) 34.8 % (40.1-51.0); Hemoglobin 12.3 g/dl (14.0-18.0); Immature Granulocytes % (auto) 2.4 %; Lymphocytes # (auto) 0.87 K/uL (1.2-3.4); Lymphocytes % (auto) 6.9 %; Mean Corpuscular Hemoglobin 30.3 pg (25.0-34.0); Mean Corpuscular Hgb Conc 35.3 g/dL (32.0-36.0); Mean Corpuscular Volume 85.7 fL (80.0-100.0); Mean Platelet Volume 10.1 fL (9.4-12.4); Monocytes # (auto) 1.08 K/uL (0.24-0.82); Monocytes % (auto) 8.6 %; Neutrophils # (auto) 10.11 K/uL (1.4-6.5); Neutrophils % (auto) 80.6 %; Platelet Count 216 K/uL (130-400); RDW Coefficient of Variation 17.4 % (11.5-14.5); RDW Standard Deviation 50.4 fL (36.4-46.3); Red Blood Count 4.06 M/uL (4.63-6.08); White Blood Count 12.55 K/ul (4.8-10.8)
[2022-04-01] MEDS: PANTOprazole 40 MG TAB PO SCH (07:51)
[2022-04-01] MEDS: TIMOLOL MALEATE 0.5% OP SOLN 5 ML BTL OPB SCH ×2 (07:52→20:30)
[2022-04-01] MEDS: BRIMONIDINE TARTRATE 0.2% 5ML OPB SCH ×2 (07:53→20:30)
[2022-04-01 07:58] LABS: Albumin Globulin Ratio 1.1 (0.9-2); Albumin Level 2.9 gm/dl (3.4-5.0); BUN Creatinine Ratio 12.4 (10-20); Bilirubin,Total 6.3 mg/dl (0.2-1.0); Calcium 8.6 mg/dl (8.5-10.1); Creatinine Clr Calc Pharmacy 8.4 ml/min; Est GFR (African American) 6.2 ml/min; Est GFR (Non-African American) 5.3 ml/min; Globulin 2.7 gm/dl (2.5-4.0); Potassium 5.3 mmol/L (3.5-5.1); Total Protein 5.6 gm/dl (6.0-8.3)
[2022-04-01] MEDS ORDERED: SODIUM CHLORIDE 0.9% 1000ML 1,000 ML IV PRN (08:23)
[2022-04-01] MEDS ORDERED: ceFAZolin 2000MG 2,000 MG/15 ML SYR IV SCH (10:00)
--- NOTE | 2022-04-01 10:30 | Consultation ---
Date of Consultation April 01, 2022 Assessment & Plan (1) Acute kidney failure: Patient for permcath today. I have discussed the risks options and benefits of the procedure with the patient. The patient understands the risks options and benefits and agrees to the procedure. History of Present Illness Reason for Consultation: Acute kidney injury Attending Physician: Prashant Stone MD History of Present Illness Patient with acute kidney injury needing dialysis. Permcath insertion is recommended for access. Allergies Allergy/AdvReac Type Severity Reaction Status Date / Time No Known Allergies Allergy Unverified 05/24/10 13:56 Home Medications Medication Instructions Recorded Confirmed Type atorvastatin 10 mg tablet 10 mg PO DAILY 07/27/19 07/27/19 History omeprazole 20 mg capsule,delayed 20 mg PO DAILY 07/27/19 03/27/22 History release terazosin 5 mg capsule 5 mg PO DAILY #90 caps 04/12/21 03/27/22 Rx brimonidine 0.2 %-timolol 0.5 % 1 drp OPB BID 03/27/22 03/27/22 History eye drops Patient History Medical History GERD (gastroesophageal reflux disease) HLD (hyperlipidemia) HTN (hypertension) Surgical History H/O eye surgery Hx of tonsillectomy Family History Other Cancer Denies family history of Prostate cancer Social History Smoking Status: Former smoker Hx Alcohol Use: Yes Alcohol type: hard liquor Hx Substance Use: No Preferred Language: Bahraini Communication Ability: Effective Manager Clinical Applications Required: No Beliefs That Will Affect Care: None marital status: Current Living Situation: Spouse current occupational status: retired How many Children do You have: 2 Feels Safe at Home: Yes Assistive Devices: None Review of Systems Review of Systems: All systems reviewed & are unremarkable except as noted in HPI & below Physical Exam Constitutional: WD/WN, vitals as above Respiratory: normal respiratory effort, lungs clear to auscultation Cardiovascular: RRR, no murmur, no edema Gastrointestinal (Abdomen): normal bowel sounds, soft, nontender, no hepatosplenomegaly Psychiatric: Orientation: alert and oriented x 3 Results & Data ([facility]) Vital Signs (Past 12 Hours) Vital Signs Temp Pulse Pulse Resp BP Pulse Ox O2 Del Method 04/01/22 07:17 36.4 C L 72 20 120/64 96 Room Air 04/01/22 06:49 36.4 C L 73 18 109/56 L 97 Room Air 04/01/22 03:10 36.5 C 80 18 110/51 L 97 Room Air 04/01/22 01:47 77
[2022-04-01] MEDS ORDERED: LIDOCAINE 1% LOCAL 20 ML VIAL ONE (10:45)
[2022-04-01] MEDS ORDERED: MIDAZOLAM HCL 1 MG/ML 2ML VIAL ONE (10:45)
[2022-04-01] MEDS ORDERED: fentaNYL citrate 100 MCG/2 ML VIAL ONE (10:45)
[2022-04-01] MEDS ORDERED: HEPARIN SOD (PORCINE) 5,000 UNITS/ML VIAL ONE (10:48)
--- NOTE | 2022-04-01 10:50 | Pre Anesthesia Assessment ---
Date of Service April 01, 2022 Pre Sedation Assessment Vital Signs Temp Pulse Pulse Resp BP BP Pulse Ox 04/01/22 10:36 36.6 C 70 20 103/56 L 95 04/01/22 07:17 36.4 C L 72 20 120/64 96 04/01/22 06:49 36.4 C L 73 18 109/56 L 97 04/01/22 03:10 36.5 C 80 18 110/51 L 97 04/01/22 01:47 77 03/31/22 19:55 36.5 C 81 20 108/44 L 96 03/31/22 15:20 36.5 C 79 16 124/61 97 03/31/22 10:59 36.5 C 78 16 126/62 94 O2 Del Method 04/01/22 10:36 Room Air 04/01/22 07:17 Room Air 04/01/22 06:49 Room Air 04/01/22 03:10 Room Air 04/01/22 01:47 03/31/22 19:55 Room Air 03/31/22 15:20 Room Air 03/31/22 10:59 Room Air Cardiovascular RRR, no murmur, no edema Respiratory normal respiratory effort, lungs clear to auscultation Pre-Sedation Airway Assessment Smoking Status: Former smoker Hx Sleep Apnea: No Short, Thick Neck: No Thyromental Distance: > or= 3.5 Finger Breadths Oral Cavity: + WNL Mallampati Class: II ASA: ASA4 NPO Status Date of Last Intake of Fluids: 03/31/22 Time of Last Intake of Fluids: 21:00 Date of Last Intake of Solid Food: 03/31/22 Time of Last Intake of Solid Foods: 18:00 Procedure Planning Contraindications for Sedation: none Current Medications Reviewed: Yes Notes The planned sedation has been discussed with the patient. Informed Consent was obtained. I have identified the patient, determined the appropriateness of sedation and have assessed the patient immediately prior to the procedure. All medicine(s) and interventions are by my order.
--- NOTE | 2022-04-01 11:46 | Hospitalist Progress Note ---
Date of Service April 01, 2022 Assessment & Plan (1) Liver lesion: (2) Elevated LFTs: Plan: Patient presented with abdominal discomfort at his primary care office on 03/26. Found to have right upper quadrant fullness on examination and elevated LFTs CT abdomen shows enlarged liver, heterogeneous and cirrhotic in morphology along with multifocal hepatic metastatic disease. Also found to have mildly enlarged intra peritoneal lymph node. Patient underwent core needle biopsy 03/27 by radiology as per recommendation by Dr. Sandoval and oncology inpatient. CEA -2.0; within normal limit [place] 1919, alpha-fetoprotein pending Plan; Follow-up on pathology results; preliminary results to be available sometime in the afternoon as per discussion with pathology. Will update Dr. Sandoval after the biopsy results come back. LFTs presently stable. Plan to obtain triple phase liver MRI/MRCP after kidney function improves as per GI. (3) Acute kidney failure: (4) Elevated uric acid in blood: Plan: Baseline creatinine of 0.9 in February. Creatinine uptrending to 8.49. Bladder scan negative for retention. CT abdomen did not show hydronephrosis. Patient received 3 doses of 3 mg rasburicase over last 2 days as per recommendation by oncology and nephrology. His uric acid down trended from 14.8 to 3.7. Plan: -Patient is having permacath placed today by vascular surgery. He will then undergo dialysis for 3 days in a row as per nephrology. He will need to have outpatient dialysis set up before discharge. Will obtain uric acid daily while inpatient. Follow-up with oncology as outpatient. 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 Chronic conditions; Hypertensionlisinoprilhydrochlorothiazide on hold. Blood pressure is normal for past 3 to 4 days. Will hold off on any antihypertensive for now. BPHcontinue on terazosin. Plan DVT heparin on hold for now for procedure tomorrow. Full code Admission and Anticipated Discharge Date Admission Date: March 27, 2022 Subjective Patient seen and examined at bedside. Is comfortably lying in the bed; not in any distress. No significant overnight events. Review of Systems Review of Systems: All systems reviewed & are unremarkable except as noted in Subjective Physical Exam Physical Exam: Constitutional: WD/WN, vitals as above, NAD, sitting up in bed, pleasant, conversing easily Respiratory: normal respiratory effort, lungs clear to auscultation, no wheeze, rales, rhonchi. Normal insp/exp effort, no accessory muscle use Cardiovascular: RRR, no murmur, no edema Vessels: no JVD or carotid bruit Chest: normal inspection of chest Abdomen: Hepatomegaly present; soft, nontender. Bowel sound present. Musculoskeletal: no cyanosis or clubbing, extremities motor strength 5/5. 1+ pitting edema present up to knees. Skin: no rashes, warm and dry normal turgor Neurologic: PERRL, EOMI, accommodation nl, no face palsy, no dysarthria CN's II- XI intact bilaterally and moves all extremities Psychiatric: A+Ox3, euthymic affect Lymphatic: no cervical or axillary lymphadenopathy : deferred Results & Data Results & Data ([facility]) Vital Signs (Past 12 Hours) Vital Signs Temp Pulse Pulse Resp BP Pulse Ox O2 Del Method 04/01/22 11:35 69 16 95/52 L 98 Oxymask 04/01/22 11:30 74 16 86/50 L 97 Oxymask 04/01/22 11:25 67 16 84/45 L 97 Oxymask 04/01/22 11:20 68 16 84/40 L 98 Oxymask 04/01/22 11:15 67 16 87/44 L 98 Oxymask 04/01/22 11:10 69 16 98/51 L 98 Oxymask 04/01/22 11:05 65 18 105/48 L 98 Oxymask 04/01/22 10:36 36.6 C 70 20 103/56 L 95 Room Air 04/01/22 07:17 36.4 C L 72 20 120/64 96 Room Air 04/01/22 06:49 36.4 C L 73 18 109/56 L 97 Room Air 04/01/22 03:10 36.5 C 80 18 110/51 L 97 Room Air 04/01/22 01:47 77 O2 Flow Rate 04/01/22 11:35 4 04/01/22 11:30 4 04/01/22 11:25 4 04/01/22 11:20 4 04/01/22 11:15 4 04/01/22 11:10 4 04/01/22 11:05 4 04/01/22 10:36 04/01/22 07:17 04/01/22 06:49 04/01/22 03:10 04/01/22 01:47 Laboratory Results Laboratory Results WBC 12.55 K/ul (4.8-10.8) H 04/01/22 07:15 RBC 4.06 M/uL (4.63-6.08) L 04/01/22 07:15 Hgb 12.3 g/dl (14.0-18.0) L 04/01/22 07:15 Hct 34.8 % (40.1-51.0) L 04/01/22 07:15 MCV 85.7 fL (80.0-100.0) 04/01/22 07:15 MCH 30.3 pg (25.0-34.0) 04/01/22 07:15 MCHC 35.3 g/dL (32.0-36.0) 04/01/22 07:15 RDW Std Deviation 50.4 fL (36.4-46.3) H 04/01/22 07:15 RDW Coeff of Ryan 17.4 % (11.5-14.5) H 04/01/22 07:15 Plt Count 216 K/uL (130-400) 04/01/22 07:15 MPV 10.1 fL (9.4-12.4) 04/01/22 07:15 Immature Gran % (Auto) 2.4 % 04/01/22 07:15 Neut % (Auto) 80.6 % 04/01/22 07:15 Lymph % (Auto) 6.9 % 04/01/22 07:15 [place] % (Auto) 8.6 % 04/01/22 07:15 Eos % (Auto) 1.0 % 04/01/22 07:15 Baso % (Auto) 0.5 % 04/01/22 07:15 Neut # (Auto) 10.11 K/uL (1.4-6.5) H 04/01/22 07:15 Lymph # (Auto) 0.87 K/uL (1.2-3.4) L 04/01/22 07:15 [place] # (Auto) 1.08 K/uL (0.24-0.82) H 04/01/22 07:15 Eos # (Auto) 0.13 K/uL (0-0.50) 04/01/22 07:15 Baso # (Auto) 0.06 K/uL (0-0.2) 04/01/22 07:15 Immature Gran # (Auto) 0.30 K/uL (0.00-0.02) H 04/01/22 07:15 PT 13.3 Seconds (9.0-12.0) H 03/27/22 13:12 INR 1.3 (0.9-1.1) H 03/27/22 13:12 APTT 27.3 Seconds (21.0-31.0) 03/27/22 13:12 PTT Ratio 1.0 03/27/22 13:12 Sodium 130 mmol/L (136-145) L 04/01/22 07:15 Potassium 5.3 mmol/L (3.5-5.1) H 04/01/22 07:15 Chloride 96 mmol/L (98-107) L 04/01/22 07:15 Carbon Dioxide 16 mmol/L (21-32) L 04/01/22 07:15 Anion Gap 18 (3-11) H 04/01/22 07:15 BUN 105 mg/dl (6-23) H 04/01/22 07:15 Creatinine 8.49 mg/dl (0.6-1.4) H* D 04/01/22 07:15 Est Cr Clr Drug Dosing 8.4 ml/min 04/01/22 07:15 Est GFR ( Amer) 6.2 ml/min 04/01/22 07:15 Est GFR (Non-Af Amer) 5.3 ml/min 04/01/22 07:15 BUN/Creatinine Ratio 12.4 (10-20) 04/01/22 07:15 Glucose 86 mg/dl (70-99(Fasting)) 04/01/22 07:15 Estimat Average Glucose 108 mg/dl 03/28/22 05:07 Hemoglobin A1c 5.4 % (4.5-5.6) 03/28/22 05:07 Uric Acid 3.7 mg/dl (2.6-7.2) 03/31/22 18:02 Calcium 8.6 mg/dl (8.5-10.1) 04/01/22 07:15 Phosphorus 6.0 mg/dl (2.5-4.9) H 03/30/22 06:17 Magnesium 2.2 mg/dl (1.7-2.4) 03/28/22 05:07 Total Bilirubin 6.3 mg/dl (0.2-1.0) H 04/01/22 07:15 Direct Bilirubin 2.2 mg/dl (0-0.2) H 03/28/22 05:07 AST 132 U/L (13-39) H 04/01/22 07:15 ALT 105 U/L (7-52) H 04/01/22 07:15 Alkaline Phosphatase 333 U/L (34-104) H 04/01/22 07:15 Lactate Dehydrogenase 378 U/L (86-244) H 03/28/22 05:07 Total Creatine Kinase 216 U/L (30-223) 03/27/22 03:06 Total Protein 5.6 gm/dl (6.0-8.3) L 04/01/22 07:15 Albumin 2.9 gm/dl (3.4-5.0) L 04/01/22 07:15 Globulin 2.7 gm/dl (2.5-4.0) 04/01/22 07:15 Albumin/Globulin Ratio 1.1 (0.9-2) 04/01/22 07:15 Lipase 135 U/L (11-82) H 03/27/22 03:06 Carcinoembryonic Ag 2.0 ng/ml (0-2.5) 03/27/22 13:12 Urine Color Dark Yellow 03/27/22 05:16 Urine Appearance Turbid (Clear) A 03/27/22 05:16 Urine pH 5.0 (4.5-7.5) 03/27/22 05:16 Ur Specific [place] 1.014 (1.000-1.030) 03/27/22 05:16 Urine Protein 2+ (Negative) H 03/27/22 05:16 Urine Glucose (UA) Negative (Negative) 03/27/22 05:16 Urine Ketones Trace (Negative) H 03/27/22 05:16 Urine Blood Negative (Negative) 03/27/22 05:16 Urine Nitrite Negative (Negative) 03/27/22 05:16 Urine Bilirubin 1+ (Negative) H 03/27/22 05:16 Urine Urobilinogen Negative (Negative) 03/27/22 05:16 Ur Leukocyte Esterase Trace (Negative) H 03/27/22 05:16 Urine WBC (Auto) 10-30 /hpf (0-5) H 03/27/22 05:16 Urine RBC (Auto) 0-4 /hpf (0-4) 03/27/22 05:16 U Hyaline Cast (Auto) 5-10 /lpf (0-5) H 03/27/22 05:16 U Epithel Cells (Auto) >30 /lpf (0-5) H 03/27/22 05:16 Urine Bacteria (Auto) 1+ (Negative) H 03/27/22 05:16 Ur Renal Epithelial Cell Not Reportable 03/27/22 05:16 Urine Yeast Not Reportable 03/27/22 05:16 Ur Random Creatinine 140.8 mg/dl 03/27/22 12:23 Urine Sodium 30 mmol/L 03/27/22 12:23 Urine Potassium 47.6 mmol/L 03/27/22 12:23 Urine Chloride 21 mmol/L 03/27/22 12:23 SARS-CoV-2, RNA, NAAT NEGATIVE (NEGATIVE) 03/27/22 06:46 Impressions Gallbladder Ultrasound 03/27/22 03:31 ULTRASOUND RIGHT UPPER QUADRANT ABDOMEN CLINICAL HISTORY: Elevated hepatic transaminases. COMPARISON STUDY: Abdominal CT performed earlier the same day 03/27/2022. TECHNIQUE: Real-time, grayscale, and color flow sonography of the right upper quadrant of the abdomen was performed. Images are reviewed in the transverse and longitudinal planes. FINDINGS: Liver: The liver is enlarged, cirrhotic in morphology, and heterogeneous in echotexture. There is nodularity of the hepatic surface contour. There are numerous infiltrative hepatic mass lesions measuring up to 3.2 cm. There is no intrahepatic biliary ductal dilatation. The main portal vein is patent. Gallbladder: No shadowing gallstones are identified. Mild gallbladder wall thickening is nonspecific and likely related to adjacent hepatocellular disease. There is no pericholecystic fluid. A sonographic Moreland's sign is reportedly absent. The common bile duct measures up to 0.6 cm in diameter. Pancreas: Visualized portions of the pancreatic head and body are normal in appearance. Right kidney: Survey images of the right kidney demonstrate normal size and echotexture. There is no hydronephrosis. Ascites: None. IMPRESSION: 1. No acute sonographic abnormality is seen in the right upper quadrant. No gallstones are identified. 2. The liver is enlarged and cirrhotic in morphology. 3. There is evidence of multifocal hepatic metastatic disease, with numerous infiltrative lesions seen throughout the liver. ACT 112: Negative or not required by law. Electronically signed by: Dov Weeks M.D. 03/27/2022 7:18 AM Abdomen/Pelvis CT 03/27/22 04:39 CT SCAN OF THE ABDOMEN AND PELVIS WITHOUT IV CONTRAST CLINICAL HISTORY: Generalized abdominal pain. Elevated hepatic transaminases. Renal insufficiency. COMPARISON STUDY: Renal ultrasound dated 06/09/2008. TECHNIQUE: CT scan of the abdomen and pelvis is performed from the lung bases to the proximal femora. Images are reviewed in the axial, sagittal, and coronal planes. IV contrast was not administered for this examination due to poor renal function. Note that the examination is suboptimal without oral and IV contrast. A dose lowering technique was utilized adhering to the principles of ALARA. Compared FINDINGS: Lung bases: The heart is normal in size and without pericardial effusion. The lung bases are clear noting bibasilar scarring/atelectasis. A small hiatal hernia is noted. Liver: The unenhanced liver is enlarged, measuring 22.8 cm in length. The liver is struck morphology and heterogeneous in attenuation with nodularity of the surface contour. There is evidence of extensive/diffuse hepatic metastatic disease with numerous mass lesions seen throughout the liver. These measure up to 3.3 cm. There is no intrahepatic biliary ductal dilatation. Gallbladder: Unremarkable. Spleen: Normal in size and attenuation. Pancreas: Infiltration and fluid is seen around the distal pancreatic body and tail. The unenhanced pancreas is otherwise grossly unremarkable. The pancreas duct is normal in caliber and no organized peripancreatic fluid collection is seen. Adrenal glands: Unremarkable. Kidneys: The unenhanced kidneys are normal in size and without hydronephrosis. There is a 4 mm nonobstructing left renal calculus. No right renal calculi are identified. A 2.9 cm exophytic lesion arising from the left lower pole meets CT criteria for simple cyst. Abdominal vasculature: The abdominal aorta is normal in course and caliber. Bowel: There is mild colonic diverticulosis without CT evidence of acute diverticulitis. No bowel obstruction is seen. Mild fecal retention is noted throughout the colon. The appendix is normal visualized. Peritoneum: There is trace perihepatic and pelvic ascites. No intraperitoneal free air is seen. There is a fat-containing umbilical hernia. Lymphadenopathy: There are mildly enlarged retroperitoneal lymph nodes. The largest node is in the left periaortic region on image #192 and measures 13 mm in short axis. Pelvic viscera: The prostate gland is markedly enlarged and heterogeneous noting medial lobe hypertrophy. The bladder is decompressed. The wall is thickened/trabeculated indicating chronic outlet obstruction. There are bilateral fat-containing inguinal hernias. Skeletal structures: The skeletal structures are osteopenic. There is mild lumbosacral spondylosis. There is a moderate chronic-appearing compression deformity of T9. No lytic or blastic lesions are seen. There are healed left- sided rib fractures. IMPRESSION: 1. Question acute pancreatitis. Correlate with clinical findings and serum amylase/lipase levels. 2. The liver is enlarged, heterogeneous, and cirrhotic in morphology. 3. There is evidence of multifocal hepatic metastatic disease. 4. Mildly enlarged intraperitoneal lymph nodes are pathologically determined. Metastatic disease is not excluded. 5. Trace abdominopelvic ascites. 6. Left-sided of lithiasis. 7. Additional findings as above. ACT 112: Negative or not required by law. Electronically signed by: Dov Weeks M.D. 03/27/2022 8:[address] 03/27/22 04:40 CT chest diagnostic wo con CT DOSE: 1717.41 mGy.cm CLINICAL HISTORY: 81 years-old Male with upper abd pain, hx of lymphoma, eval for any mass. Acute chest and abdominal pain in a patient with history of lymphoma TECHNIQUE: Multiaxial CT images of the chest were performed without contrast. A dose lowering technique was utilized adhering to the principles of ALARA. COMPARISON: CT abdomen and pelvis of same day, PET CT 02/11/2007 FINDINGS: Subcentimeter thyroid nodules. No lymphadenopathy identified. The heart is normal in size without pericardial effusion. Moderate coronary artery calcifications. Atherosclerosis of the thoracic aorta without aneurysm. Descending thoracic aortic tortuosity. No pneumothorax, pleural effusion, airspace consolidation or overt pulmonary edema. Subsegmental bibasilar atelectasis versus scarring. Mild emphysema. Scattered solid pulmonary nodules are noted within the upper lung zone prominent distribution bilaterally measuring up to 4 mm, most of which appear to be new from the prior exam. Central airways are patent. Heterogeneity of the liver with trace perihepatic and marginal nodularity. Innumerable masses are present within the liver measuring up to approximately 3 cm. Trace perisplenic fluid also noted. Mild chronic appearing mid thoracic compression deformities. IMPRESSION: 1. Mild emphysema without acute intrathoracic abnormality. 2. Numerous upper lung zone predominant solid pulmonary nodules measure up to 4 mm. Follow-up guidelines provided below. 3. No lymphadenopathy. 4. Innumerable hepatic masses are suggestive of metastasis. Please refer to the CT abdomen and pelvis study of same day for additional findings. Please refer to below summary of Fleischner criteria recommendations for follow- up of incidental CT nodules (Alex Bowen, Guidelines for management of small pulmonary nodules detected on CT scans: A statement from the Fleischner Society, Radiology 237: [id number].) SOLID NODULES Multiple nodules size: <6 mm * Low risk patients: no routine follow-up * high risk patients: optional CT at 12 months Note: newly detected indeterminate nodule in persons 35 years of age or older. * Low risk patients: minimal or absent history of smoking and/or other known risk factors * high risk patients: history of smoking or of other known risk factors (e.g. first degree relative with lung cancer, or exposure to asbestos, radon, uranium) * if a nodule up to 8 mm is partly solid or is ground glass further follow-up is required after 24 months to exclude possible slow growing adenocarcinoma (JOCY) ACT 112: Negative or not required by law. Electronically signed by: Julio Orr M.D. 03/27/2022 7:47 AM Liver Biopsy Ultrasound 03/27/22 13:15 ULTRASOUND-GUIDED CORE NEEDLE BIOPSY OF THE LEFT HEPATIC LOBE MASS HISTORY: Multiple liver metastasis. COMPARISON: None. PROCEDURE: Written informed consent was obtained. The epigastric region was prepped and draped in the usual sterile fashion. 1% lidocaine was used for local anesthesia. A total of one pass using an 18-gauge by 9 cm biopsy device was made through the left hepatic lobe under ultrasound guidance. The specimen was placed in formalin and transferred to the pathology department for further evaluation. The patient tolerated the procedure well. There were no immediate complications. IMPRESSION: Successful ultrasound-guided core needle biopsy of the left hepatic lobe/masses. ACT 112: Negative or not required by law. Electronically signed by: Ismael Little M.D. 03/27/2022 2:30 PM Chest X-Ray 03/30/22 10:08 SINGLE VIEW CHEST CLINICAL HISTORY: Dyspnea. FINDINGS: An AP, portable, upright chest radiograph is compared to study dated 03/01/2022 and correlated with chest CT dated 03/27/2022. The examination is degraded by portable technique and apical lordotic positioning. The c ardiomediastinal silhouette is top normal for projection noting atherosclerotic calcification of the thoracic aorta. Emphysema and chronic interstitial thickening is similar to previous. There is mild elevation of the right hemidiaphragm with bibasilar scarring/atelectasis. No airspace consolidation, large pleural effusion, or pneumothorax is seen. The skeletal structures are osteopenic. There are numerous chronic/healed bilateral rib fractures. IMPRESSION: Emphysematous change with no active disease in the chest. ACT 112: Negative or not required by law. Electronically signed by: Dov Weeks M.D. 03/30/2022 10:56 AM
--- NOTE | 2022-04-01 11:53 | Post Operative Brief Note ---
Immediate Post Op Note v1 Date of Surgery April 01, 2022 Pre & Post Diagnosis Operation Date: 04/01/22 07:50 Pre-Op Diagnosis: Acute Kidney Injury Post-Op Diagnosis: Acute Kidney Injury I identified the patient and participated in the time-out.: Yes Procedure Operation Date: 04/01/22 07:50 Actual Procedures p Insertion of Perm Catheter, Right Internal Jugular Approach, Ultrasound Localization of Right Internal Jugular Vein, Fluoroscopy for Positioning, Moderate Sedation [id number](Right) - Azael Fatima MD Surgeon Azael Fatima MD Belt Puncher MD Madhuri Estimated Blood Loss 15 Findings Consistent with Post-Op Diagnosis Anesthesia Type RN Sedation Complications none Disposition Accompanied Patient To Recovery: No Disposition: Recovery Room
--- NOTE | 2022-04-01 11:54 | Post Anesthesia Assessment ---
Date of Service April 01, 2022 Post Sedation Assessment Vital Signs Temp Pulse Pulse Resp BP BP Pulse Ox 04/01/22 11:52 68 16 90/46 L 98 04/01/22 11:45 70 16 90/45 L 98 04/01/22 11:40 70 16 85/50 L 98 04/01/22 11:35 69 16 95/52 L 98 04/01/22 11:30 74 16 86/50 L 97 04/01/22 11:25 67 16 84/45 L 97 04/01/22 11:20 68 16 84/40 L 98 04/01/22 11:15 67 16 87/44 L 98 04/01/22 11:10 69 16 98/51 L 98 04/01/22 11:05 65 18 105/48 L 98 04/01/22 10:36 36.6 C 70 20 103/56 L 95 04/01/22 07:17 36.4 C L 72 20 120/64 96 04/01/22 06:49 36.4 C L 73 18 109/56 L 97 04/01/22 03:10 36.5 C 80 18 110/51 L 97 04/01/22 01:47 77 03/31/22 19:55 36.5 C 81 20 108/44 L 96 03/31/22 15:20 36.5 C 79 16 124/61 97 O2 Del Method O2 Flow Rate 04/01/22 11:52 Room Air 04/01/22 11:45 Oxymask 4 04/01/22 11:40 Oxymask 4 04/01/22 11:35 Oxymask 4 04/01/22 11:30 Oxymask 4 04/01/22 11:25 Oxymask 4 04/01/22 11:20 Oxymask 4 04/01/22 11:15 Oxymask 4 04/01/22 11:10 Oxymask 4 04/01/22 11:05 Oxymask 4 04/01/22 10:36 Room Air 04/01/22 07:17 Room Air 04/01/22 06:49 Room Air 04/01/22 03:10 Room Air 04/01/22 01:47 03/31/22 19:55 Room Air 03/31/22 15:20 Room Air Recovery Score Activity: Moves 4 extremities Respiration: Deep Breath/Cough Circulation: +/-20% PreAnes Value Consciousness: Fully Awake Oxygen Saturation: > 92% On Room Air Post Anesthesia Score: 10 Discharge Sedation Level of Care: Fast Track Phase II Post Sedation Plan On clinical assessment, the patient appears to have tolerated the sedation without complications. Patient is recovering as anticipated. Patient will continue to be monitored by nursing and may be discharged when sedation discharge criteria are met per below protocol. Upon Completions of procedure up to 15 minutes continue every 5 minute vital signs and the P.A.R. score; then discharge to a Phase I or Fast Track to Phase II per the following guidelines: * Discharge Patient to appropriate Phase II area if PAR is 8 or greater or return to pre- procedure baseline. The post - procedure orders will be as directed. * If PAR score is less than 8 or not return to pre-procedure baseline then patient will follow Phase I monitoring till PAR is reached for Phase II. The Phase I may be done in procedure room or may call to secure a Phase I area. * If naloxone or flumazenil are used for reversal, hold in Phase I for continued monitoring from when last reversal dose was given for a minimum of 60 minutes or longer pending the nurse and/or physician discretion of patient condition before discharge to Phase II. Please call the Sedation Physician to re-evaluate and complete post-note for discharge to Phase II area. Do NOT discharge from procedure sedation or Phase 1 until post- sedation evaluation note is complete by procedure /sedation MD Sedation Discharge Instructions to be given to the patient at discharge to home.
--- NOTE | 2022-04-01 11:59 | Procedure Note ---
Angiogram Post Procedure Conscious Sedation Time (minutes): 42 Post Operative Report Pre & Post Diagnosis Operation Date: 04/01/22 07:50 Pre-Op Diagnosis: Acute Kidney Injury Post-Op Diagnosis: Acute Kidney Injury I identified the patient and participated in the time-out.: Yes Procedure Operation Date: 04/01/22 07:50 Actual Procedures p Insertion of Perm Catheter, Right Internal Jugular Approach, Ultrasound Localization of Right Internal Jugular Vein, Fluoroscopy for Positioning, Moderate Sedation [id number](Right) - Azael Fatima MD Surgeon Kushal Barron MD Custom Framing Specialist Sharmaine Proctor MD Estimated Blood Loss 15 Findings See Below Both lumens draw back and flush quickly Specimens None Anesthesia Type RN Sedation Complications none Disposition Accompanied Patient To Recovery: No Disposition: Recovery Room Indications LUIS EDUARDO requiring dialysis access Description of Procedure Patient was taken to the angio suite and placed in the supine position. The Right side of the neck and chest wall were prepped and draped in a sterile manner. Local anesthesia was then administered to the appropriate areas of the neck and chest wall. Ultrasound was then used to locate the right internal jugular vein. The vein compressed easily, had no filing defects, and was patent. The vein was then punctured under direct ultrasound imaging. A guidewire was then passed centrally under fluoroscopic imaging. A stab wound was then made in the anterior chest wall and a 19 cm permcath was passed from the stab wound on the chest wall to the puncture site on the neck. The puncture site was then dilated till the 14Fr peel away sheath was inserted. The permcath was then inserted through the sheath to a central position in the distal superior vena cava. The peel away sheath was then removed. There was initially a twist of the catheter therefore the J was was inserted through the catheter into the SVC. The subcutaneous tissue around the catheter was dissected free. Then the catheter was advanced into good position. The catheter was then sutured in place using nylon sutures. The puncture was then closed using a 4-0 Vicryl subcuticular suture. Dermabond was used for a dressing on the puncture site. Both ports aspirated and flushed easily and were then packed with heparin. A sterile dressing was applied to the catheter. The patient left the angio suite in good condition and tolerated the procedure well. Dr. Fatima was present and scrubbed for the entire procedure. I attest to the content of the Intraoperative Record and any orders documented therein. Any exceptions are noted below.
--- NOTE | 2022-04-01 14:25 | Nephrology Progress Note ---
Date of Service April 01, 2022 Assessment & Plan (1) Acute kidney failure: Plan: oliguric acute kidney injury likely due to ischemic ATN in setting of malignancy and high uric acid. Creatinine is uptrending to 8.5 today. He has metabolic acidosis as well w/ K low 5s. Patient has normal renal function at baseline (creat 0.9 late february). We will request PermCath placement by interventional radiology on Friday. Hospitalist discussed with Dr. Fatima and he is willing to place PermCath on Friday at 10 AM. -indications, alternatives, risks/benefits of HD reviewed w/ pt > consent obtained for HD and on chart -We will plan dialysis tomorrow afternoon after permacath placement > plan daily x 3 days as his body acclimates to tx -pls arrange OP dialysis at [facility] -Continue monitor renal function with a BMP daily -dialysis diet when taking po -Strict input output -Avoid contrast (2) Elevated uric acid in blood: Plan: had rasburicase 03/31 w/ rapid uric acid drop -check uric acid every 48 -72 hrs; likely to need to resume allopurinol -f/u pending liver bx and tumor markers; to f/u w/ Dr Tone Sandoval at d/c Admission and Anticipated Discharge Date Admission Date: March 27, 2022 Subjective renal numbers continue to worsen; seen and evaluated this am about 0915; endorses mild sob, no uncontrolled pain; feels edema controlled; acknowledges m inimal UOP Review of Systems Review of Systems: All systems reviewed & are unremarkable except as noted in Subjective Physical Exam Constitutional: well developed and well nourished Eyes: EOM intact bilaterally ENMT: Ears: no external ear abnormality Nose: no external nose abnormality Mouth: + dry oral mucous membranes Neck: no nuchal rigidity Respiratory: normal respiratory effort Auscultation: + diminished lung sounds Cardiovascular: RRR, no murmur, no edema Gastrointestinal (Abdomen): Inspection/Auscultation: normal bowel sounds Percussion/Palpation: abdomen soft; abdomen nontender Musculoskeletal: Extremities: strength 5/5 throughout (but generalized weakness/needs asst for exam maneuver) Skin: no rashes, warm and dry Neurologic: laura, fluent speech, no tremor Results & Data ([facility]) Vital Signs (Past 12 Hours) Vital Signs Temp Pulse Pulse Resp BP Pulse Ox O2 Del Method 04/01/22 13:30 68 16 96/45 L 96 Room Air 04/01/22 12:45 74 18 106/61 96 Room Air 04/01/22 12:30 70 16 106/47 L 95 Room Air 04/01/22 12:15 68 16 97/46 L 96 04/01/22 11:52 68 16 90/46 L 98 Room Air 04/01/22 11:45 70 16 90/45 L 98 Oxymask 04/01/22 11:40 70 16 85/50 L 98 Oxymask 04/01/22 11:35 69 16 95/52 L 98 Oxymask 04/01/22 11:30 74 16 86/50 L 97 Oxymask 04/01/22 11:25 67 16 84/45 L 97 Oxymask 04/01/22 11:20 68 16 84/40 L 98 Oxymask 04/01/22 11:15 67 16 87/44 L 98 Oxymask 04/01/22 11:10 69 16 98/51 L 98 Oxymask 04/01/22 11:05 65 18 105/48 L 98 Oxymask 04/01/22 10:36 36.6 C 70 20 103/56 L 95 Room Air 04/01/22 07:17 36.4 C L 72 20 120/64 96 Room Air 04/01/22 06:49 36.4 C L 73 18 109/56 L 97 Room Air 04/01/22 03:10 36.5 C 80 18 110/51 L 97 Room Air O2 Flow Rate 04/01/22 13:30 04/01/22 12:45 04/01/22 12:30 04/01/22 12:15 04/01/22 11:52 04/01/22 11:45 4 04/01/22 11:40 4 04/01/22 11:35 4 04/01/22 11:30 4 04/01/22 11:25 4 04/01/22 11:20 4 04/01/22 11:15 4 04/01/22 11:10 4 04/01/22 11:05 4 04/01/22 10:36 04/01/22 07:17 04/01/22 06:49 04/01/22 03:10 Laboratory Results 04/01/22 07:15 04/01/22 07:15
[2022-04-01 16:02] LABS: AFP Tumor Marker Serum 5.9 ng/mL (<6.1)
--- NOTE | 2022-04-01 18:47 | Communication Note ---
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 Sandoval. As per Dr. Sandoval " this is a high-grade neuroendocrine carcinoma, systemic chemotherapy with etoposide and carboplatin would be way to treat. With his poor kidney and liver, not sure he would be able to get or tolerate the treatment. Its Palliative, not curative. If the patient wants treatment, we may need to transfer [place] [facility] [place]" Discussed with patient and patient ; they are agreeable to go to [place] for chemotherapy consideration. Discussed with transfer center, on-call oncologist Taina Gasca. She agrees that patient could be evaluated there and be admitted under hospitalist service. Patient to be transferred under Dr. Charlton.
--- NOTE | 2022-04-01 18:48 | Discharge Summary ---
Date of Service April 01, 2022 Admission HPI Per Admitting Provider This is an 81-year-old male with past medical history significant for hyperlipidemia, prediabetes, hypertension, non-Hodgkin's lymphoma diagnosed in both groins one year apart in 2005 and 2006, status post chemoradiation, completed chemo in 2006 and seems to be in remission, now presents because of ongoing gurgling feeling in his abdomen since last two to three weeks. In last one to two weeks he is having right upper quadrant abdominal pain.He went to PCP yesterday and was found to have low blood pressure, Hyzaar was changed to losartan and labs were done.Labs showed creatinine is 1.4 which was normal recent past and has elevated LFTs, advised to hold the losartan for a few days and ultrasound was ordered for tomorrow and planned for close followup. But patient says for the last couple of days his urination decreased and he woke up at 2:00 a.m. and could not micturate, so he decided to come to the ER. In the ER, his creatinine is 2.6, BUN is 51. Total bilirubin 3.8, AST 178, ALT 127, alkaline phosphatase 408. Urinalysis, +[address] abdomen and pelvis preliminary report showing liver lesions and possible perinephric stranding so we are called for admission. Currently, patient is resting comfortably and hemodynamically stable. in room. Somewhat hard of hearing. Denies any headache. No blurred visions, no earache, no runny nose, no sore throat, no cough, no difficulty swallowing. Appetite is okay. No recent weight gain or weight loss. No chest pain.He is getting short of breath on exertion, feeling weak and fatigued. No nausea, no vomiting, no diarrhea or constipation. Denies any blood in stool or black stools. No swelling in the legs, otherwise ambulating okay. The patient is also having night sweats for the last 1 month. Admission Exam Per Admitting Provider This is an 81-year-old male with past medical history significant for hyperlipidemia, prediabetes, hypertension, non-Hodgkin's lymphoma diagnosed in both groins one year apart in 2005 and 2006, status post chemoradiation, completed chemo in 2006 and seems to be in remission, now presents because of ongoing gurgling feeling in his abdomen since last two to three weeks. In last one to two weeks he is having right upper quadrant abdominal pain.He went to PCP yesterday and was found to have low blood pressure, Hyzaar was changed to losartan and labs were done.Labs showed creatinine is 1.4 which was normal recent past and has elevated LFTs, advised to hold the losartan for a few days and ultrasound was ordered for tomorrow and planned for close followup. But patient says for the last couple of days his urination decreased and he woke up at 2:00 a.m. and could not micturate, so he decided to come to the ER. In the ER, his creatinine is 2.6, BUN is 51. Total bilirubin 3.8, AST 178, ALT 127, alkaline phosphatase 408. Urinalysis, +[address] abdomen and pelvis preliminary report showing liver lesions and possible perinephric stranding so we are called for admission. Currently, patient is resting comfortably and hemodynamically stable. in room. Somewhat hard of hearing. Denies any headache. No blurred visions, no earache, no runny nose, no sore throat, no cough, no difficulty swallowing. Appetite is okay. No recent weight gain or weight loss. No chest pain.He is getting short of breath on exertion, feeling weak and fatigued. No nausea, no vomiting, no diarrhea or constipation. Denies any blood in stool or black stools. No swelling in the legs, otherwise ambulating okay. The patient is also having night sweats for the last 1 month. Principal Diagnosis Liver Masses with Poorly differentiated carcinoma with neuroendocrine carcinoma differentiation Acute Kidney Injury s/p permacath placement, HD started on 04/01/2022 Elevated Uric Acid blood s/p Rasburicase Discharge Exam Constitutional: WD/WN, vitals as above, NAD, sitting up in bed, pleasant, conversing easily Neck: Permacath in place in right IJ Respiratory: normal respiratory effort, lungs clear to auscultation, no wheeze, rales, rhonchi. Normal insp/exp effort, no accessory muscle use Cardiovascular: RRR, no murmur, no edema Vessels: no JVD or carotid bruit Chest: normal inspection of chest Abdomen: normal bowel sounds, soft, nontender, no hepatosplenomegaly Musculoskeletal: no cyanosis or clubbing, extremities motor strength 5/5 Skin: no rashes, warm and dry normal turgor Neurologic: PERRL, EOMI, accommodation nl, no face palsy, no dysarthria CN's II- XI intact bilaterally and moves all extremities Psychiatric: A+Ox3, euthymic affect Lymphatic: no cervical or axillary lymphadenopathy : deferred Discharge Data Allergies Allergy/AdvReac Type Severity Reaction Status Date / Time No Known Allergies Allergy Unverified 05/24/10 13:56 Consultations 03/27/22 05:50 ED Decision to Admit Stat 03/27/22 07:39 Consult Gastroenterology Routine 03/27/22 08:26 Consult Oncology Routine 03/27/22 09:10 Consult Nephrology Routine 03/31/22 10:11 Consult Vascular Surgery Routine Procedures Performed Operation Date: 04/01/22 07:50 Actual Procedures p Insertion of Perm Catheter, Right Internal Jugular Approach, Ultrasound Localization of Right Internal Jugular Vein, Fluoroscopy for Positioning, Moderate Sedation [id number](Right) - Azael Fatima MD Ordered Studies 03/27/22 03:31 US gallbladder Urgent 03/27/22 04:39 CT abd pelvis wo con Stat 03/27/22 04:40 CT chest diagnostic wo con Stat 03/27/22 13:15 US biopsy liver Routine 04/01/22 09:22 EV cvc insrt tunnel wo prt/hollow core door frame assembler Routine US EV guide vascular access Routine Hospital Course (1) Liver lesion: (2) Elevated LFTs: (3) Acute kidney failure: (4) Elevated uric acid in blood: (5) Hx of non-Hodgkin's lymphoma: Plan Patient is a 81-year-old male with 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 He was found to have right upper quadrant fullness on examination. Labs were significant for elevated bilirubin and liver enzymes. Patient came to the ED with complaint of decreased urine output. CT abdomen showed enlarged liver along with multifocal hepatic metastatic disease. Patient underwent core needle biopsy on 03/27/2022 of the liver mass. Patient was found to have progressive LUIS EDUARDO along with elevated uric acid level of 14. Patient was initially treated with IV fluids, rasburicase 3 mg dose x3. His uric acid level down trended. However, LUIS EDUARDO did not improve. Patient's creatinine up trended to 8.5 with potassium of 5.3. Patient underwent permacath placement today and was started on hemodialysis. He received full session of dialysis today. Today, patient's liver biopsy came back. 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 Sandoval. As per Dr. Sandoval " this is a high-grade neuroendocrine carcinoma, systemic chemotherapy with etoposide and carboplatin would be way to treat. With his poor kidney and liver, not sure he would be able to get or tolerate the treatment. Its Palliative, not curative. If the patient wants treatment, we may need to transfer him to [facility] [place] for possible chemo consideration" Discussed with patient and patient ; they are agreeable to go to [place] for chemotherapy consideration. Discussed with transfer center, on-call oncologist Taina Gasca. She agrees that patient could be evaluated there and be admitted under hospitalist service. Patient to be transferred under Dr. Charlton. Total Time Total Time Spent Total Time Spent (In Minutes): 60 Total Time Includes: Examination of the Patient, Discharge Planning, Medication Reconciliation, Communication With Other Providers and Other Discharge Plan Discharge Items Patient Disposition: Transfer Acute Care Hospital Reason For Visit: UNABLE TO VOID, ABDOMINAL PAIN, LUIS EDUARDO Discharge Diagnosis: Liver Masses with Poorly differentiated carcinoma with neuroendocrine carcinoma differentiation Acute Kidney Injury s/p permacath placement, HD started on 04/01/2022 Elevated Uric Acid blood s/p Rasburicase Activity: Resume your previous activity Non-emergency contact: Primary Care Provider Call non-emergency contact if: you have any medication questions and your symptoms worsen Follow-up/Referrals: Madelin Sandoval MD [Primary Care Provider] - Diet: Dialysis Renal Addtl Attending Provider Instructions: He was getting transferred to [facility] for evaluation of chemotherapy for the newly diagnosed cancer. Addtl Student Services Representative Provider Instructions: Date of Service: April 01, 2022 Current Inpatient Medications Brimonidine Tartrate (Brimonidine Tartrate 0.2% 5ml) 1 drops OPB BID JONAS Stop: 04/26/22 10:29 Last Admin: 04/01/22 07:53 Dose: 1 drops Nitroglycerin (Nitroglycerin Sl 0.4 Mg/Tab Tab) 0.4 mg SL UD PRN PRN Reason: Chest Pain Stop: 04/26/22 09:54 Pantoprazole Sodium (Pantoprazole 40 Mg Tab) 40 mg PO DAILY JONAS Stop: 04/26/22 10:29 Last Admin: 04/01/22 07:51 Dose: 40 mg Polyethylene Glycol (Polyethylene (Miralax) 17 Gm Pack) 17 gm PO DAILY PRN PRN Reason: Constipation Stop: 04/26/22 09:54 Sodium Chloride (Sodium Chloride 0.65% Na Soln 45 Ml ([place])) 0 sprays NA NOW PRN PRN Reason: Nasal Congestion Stop: 04/30/22 06:44 Terazosin HCl (Terazosin Hcl 5 Mg Cap) 5 mg PO HS JONAS Stop: 04/26/22 20:59 Last Admin: 03/31/22 21:09 Dose: 5 mg Timolol Maleate (Timolol Maleate 0.5% Op Soln 5 Ml Btl) 1 drops OPB BID JONAS Stop: 04/26/22 10:29 Last Admin: 04/01/22 07:52 Dose: 1 drops Pending Studies at Discharge: No Stand-Alone Forms: [facility] Skilled Items Patient informed of condition?: Yes DNR: No Discharge Level of Care: Other Communicable Disease: No Discharge Prognosis: Stable Lines: [place] Urinary Catheter: No Medications and DC Order Prescriptions: Continued terazosin 5 mg capsule 5 mg PO DAILY Qty: 90 3RF Rx Instructions: take at bedtime omeprazole 20 mg capsule,delayed release(DR/EC) 20 mg PO DAILY atorvastatin 10 mg tablet 10 mg PO DAILY brimonidine-timolol 0.2-0.5 % drops 1 drp OPB BID Discharge Orders: Discharge Order (Routine); Ordered 04/01/22 Ordered By: Prashant Stone Admission Data Admit Date/Time: 03/27/22 06:44 Attending Provider: Prashant Stone Admit Provider: Mark Dorsey Primary Care Provider: Madelin Sandoval Other Providers: Mark Dorsey ; Jose M Rodriguez ; Thomas Plaza ; Rae Irving ; Afsaneh Mir ; Vidya Benavidez ; hSakira Meyers ; Mauro,Jerrell ; Sera Blanco ; Lopez Cheema ; Meet Ortega ; Micki Cardoza ; Ge Edmondson ; Aby Tavares ; Ana Mac ; Maddy Patterson ; Adriana Rodarte ; Arthur Mckinney ; Koffi Tierney ; Fili Levi ; Nandini Mixon ; Shannon Higginbotham Jr ; Gina Moreland ; Sarah Acosta ; Mert Ravi ; Polly Hernandez ; Kolby Victor ; Ralph Barbosa ; Nolberto Lambert ; Rebecca Mtz ; [facility],No Attending ; Eric Pittman ; Azael Fatima
[2022-04-01] MEDS: TERAZOSIN HCL 5 MG CAP PO SCH (20:30)
[2022-04-02] MEDS ORDERED: SODIUM CHLORIDE 0.9% 1000ML 1,000 ML IV PRN (07:42)
[2022-04-02] MEDS ORDERED: MIDODRINE HCL 2.5 MG TAB PO SCH (08:00)
[2022-04-02] MEDS: BRIMONIDINE TARTRATE 0.2% 5ML OPB SCH ×2 (08:41→21:18)
[2022-04-02] MEDS: TIMOLOL MALEATE 0.5% OP SOLN 5 ML BTL OPB SCH ×2 (08:41→21:18)
[2022-04-02] MEDS: PANTOprazole 40 MG TAB PO SCH (08:42)
[2022-04-02 08:48] LABS: Basophils # (auto) 0.04 K/uL (0-0.2); Basophils % (auto) 0.3 %; Eosinophils # (auto) 0.08 K/uL (0-0.50); Eosinophils % (auto) 0.6 %; Hematocrit (blood only) 34.1 % (40.1-51.0); Hemoglobin 12.1 g/dl (14.0-18.0); Immature Granulocytes % (auto) 2.8 %; Lymphocytes # (auto) 0.71 K/uL (1.2-3.4); Mean Corpuscular Hemoglobin 30.6 pg (25.0-34.0); Mean Corpuscular Hgb Conc 35.5 g/dL (32.0-36.0); Mean Corpuscular Volume 86.1 fL (80.0-100.0); Mean Platelet Volume 10.1 fL (9.4-12.4); Monocytes # (auto) 0.96 K/uL (0.24-0.82); Monocytes % (auto) 6.7 %; Neutrophils # (auto) 12.04 K/uL (1.4-6.5); Neutrophils % (auto) 84.6 %; Platelet Count 188 K/uL (130-400); RDW Coefficient of Variation 18.3 % (11.5-14.5); Red Blood Count 3.96 M/uL (4.63-6.08); White Blood Count 14.23 K/ul (4.8-10.8)
[2022-04-02 09:17] LABS: Albumin Globulin Ratio 1.1 (0.9-2); BUN Creatinine Ratio 10.4 (10-20); Bilirubin,Total 7.2 mg/dl (0.2-1.0); Calcium 8.6 mg/dl (8.5-10.1); Creatinine Clr Calc Pharmacy 8.6 ml/min; Est GFR (African American) 6.4 ml/min; Est GFR (Non-African American) 5.5 ml/min; Globulin 2.7 gm/dl (2.5-4.0); Potassium 5.9 mmol/L (3.5-5.1); Total Protein 5.7 gm/dl (6.0-8.3)
--- NOTE | 2022-04-02 11:57 | Dialysis Progress Note ---
Date of Service April 02, 2022 Assessment & Plan (1) Acute kidney failure: Plan: now dialysis dependent and oliguric, even oliganuric -HD tomorrow 4 hr tx per routine; tolerating HD well though BP trends are concerning K 5.9 despite dialysis diet and 2 hrs HD; ? tumor lysis; not hemolyzed; no offending meds >> for HD today 3hrs 2K bath and continue renal diet >recheck bmp 1700 and consider prn veltassa (2) Elevated uric acid in blood: Plan: undetectable 04/01 after 03/31 rasburicase (3) Dyspnea: Plan: sats are maintained. -trial bronchodilator ->recommend r/o PE while avoiding IV contrast > BLE venous dopplers and TTE >recommend repeat CXR >ensure on appropriate heparin dosing (4) Neuroendocrine tumor: Plan: awaiting transfer to [facility] for palliative CTX; started on HD before this dx came back >>low threshold for palliative consultation (5) Hypotension: Plan: no response at all to 5 mg midodrine prior to starting HD today. SBP dropped yesterday during TDC placement; has never rebounded; no UF w/ either HD tx and has been given IV fluid during tx has already needed 400 mL NS to maintain SBP in 80s today on HD. no culprit medications no sx w/ lower bp; not floridly overloaded -TTE as above -recommend sepsis work up given new hypotension and ongoing leukocytosis ?hypovolemia > if TTE and CXR OK, trial of IV fluids Care coordinated w/ Dr Bach Admission and Anticipated Discharge Date Admission Date: March 27, 2022 Subjective path came back w/ high grade neuroendocrine carcinoma. He is for immediate [facility] transfer for eval for palliative CTX but awaiting bed. Had asx hypotension yesterday on HD to 80-90s SBP and needed 300 mL NS w/ tx to maintain this. today again tells me sob and moreso w/ speech; sats OK; respiratory called and will try bronchodilators. no abdominal or musculoskeletal pain; no N but minimal po d/t poor appetite Review of Systems Review of Systems: All systems reviewed & are unremarkable except as noted in Subjective Physical Exam Constitutional: well developed, well nourished and cooperative; no acute distress Eyes: EOM intact bilaterally ENMT: Ears: no external ear abnormality Nose: no external nose abnormality Mouth: + dry oral mucous membranes Neck: no nuchal rigidity Respiratory: normal respiratory effort Auscultation: lungs clear to auscultation bilaterally (on RA; no cough) and + diminished lung sounds Cardiovascular: RRR, no murmur, no edema Gastrointestinal (Abdomen): Inspection/Auscultation: normal bowel sounds Percussion/Palpation: abdomen soft; abdomen nontender Musculoskeletal: Extremities: strength 5/5 throughout Skin: no rashes, warm and dry Neurologic: laura, fluent speech, no tremor Psychiatric: Orientation: oriented x 3 (? slightly slow processing) Results & Data ([facility]) Vital Signs (Past 12 Hours) Vital Signs Temp Pulse Pulse Pulse Resp BP BP 04/02/22 11:00 68 70/26 L 04/02/22 10:30 68 93/59 L 04/02/22 10:00 56 L 78/56 L 04/02/22 09:30 57 L 86/68 L 04/02/22 09:11 64 90/49 L 04/02/22 09:07 36.6 C 70 04/02/22 07:00 04/02/22 07:40 36.5 C 70 18 95/62 L 04/02/22 07:00 79 04/02/22 03:39 36.5 C 83 18 120/62 04/02/22 00:11 90 Pulse Ox O2 Del Method 04/02/22 11:00 04/02/22 10:30 04/02/22 10:00 04/02/22 09:30 04/02/22 09:11 04/02/22 09:07 04/02/22 07:00 Room Air 04/02/22 07:40 97 Room Air 04/02/22 07:00 04/02/22 03:39 97 Room Air 04/02/22 00:11 Laboratory Results 04/02/22 08:34 04/02/22 08:34 Diagnostic Findings CXR 03/30 > Emphysematous change with no active disease in the chest chest CT non con 03/27 FINDINGS: Subcentimeter thyroid nodules. No lymphadenopathy identified. The heart is normal in size without pericardial effusion. Moderate coronary artery calcifications. Atherosclerosis of the thoracic aorta without aneurysm. Descending thoracic aortic tortuosity. No pneumothorax, pleural effusion, airspace consolidation or overt pulmonary edema. Subsegmental bibasilar atelectasis versus scarring. Mild emphysema. Scattered solid pulmonary nodules are noted within the upper lung zone prominent distribution bilaterally measuring up to 4 mm, most of which appear to be new from the prior exam. Central airways are patent. Heterogeneity of the liver with trace perihepatic and marginal nodularity. Innumerable masses are present within the liver measuring up to approximately 3 cm. Trace perisplenic fluid also noted. Mild chronic appearing mid thoracic compression deformities. IMPRESSION: 1. Mild emphysema without acute intrathoracic abnormality. 2. Numerous upper lung zone predominant solid pulmonary nodules measure up to 4 mm. Follow-up guidelines provided below. 3. No lymphadenopathy. 4. Innumerable hepatic masses are suggestive of metastasis. Please refer to the CT abdomen and pelvis study of same day for additional findings. CT a/p non con Abdominal vasculature: The abdominal aorta is normal in course and caliber. Bowel: There is mild colonic diverticulosis without CT evidence of acute diverticulitis. No bowel obstruction is seen. Mild fecal retention is noted throughout the colon. The appendix is normal visualized. Peritoneum: There is trace perihepatic and pelvic ascites. No intraperitoneal free air is seen. There is a fat-containing umbilical hernia. Lymphadenopathy: There are mildly enlarged retroperitoneal lymph nodes. The largest node is in the left periaortic region on image #[id number] and measures 13 mm in short axis. Pelvic viscera: The prostate gland is markedly enlarged and heterogeneous noting medial lobe hypertrophy. The bladder is decompressed. The wall is thickened/trabeculated indicating chronic outlet obstruction. There are bilateral fat-containing inguinal hernias. Skeletal structures: The skeletal structures are osteopenic. There is mild lumbosacral spondylosis. There is a moderate chronic-appearing compression deformity of T9. No lytic or blastic lesions are seen. There are healed left- sided rib fractures. IMPRESSION: 1. Question acute pancreatitis. Correlate with clinical findings and serum amyl ase/lipase levels. 2. The liver is enlarged, heterogeneous, and cirrhotic in morphology. 3. There is evidence of multifocal hepatic metastatic disease. 4. Mildly enlarged intraperitoneal lymph nodes are pathologically determined. Metastatic disease is not excluded. 5. Trace abdominopelvic ascites. 6. Left-sided of lithiasis. 7. Additional findings as above.
--- NOTE | 2022-04-02 12:32 | XRay Report ---
SINGLE VIEW CHEST CLINICAL HISTORY: Dyspnea. FINDINGS: 2 AP, portable, upright chest radiographs are compared to study dated 03/30/2022 and correl ated with chest CT dated 03/27/2022. The examination is degraded by portable technique and apical clive dotic positioning. A right internal jugular central venous catheter is new from previous. The cardiom ediastinal silhouette is top normal for projection noting atherosclerotic calcification of the thorac ic aorta. The pulmonary vasculature is noncongested. Emphysema and chronic interstitial thickening is similar to previous. There is mild elevation of the right hemidiaphragm with bibasilar scarring/atel ectasis. No airspace consolidation, large pleural effusion, or pneumothorax is seen. The skeletal str uctures are osteopenic. There are numerous chronic/healed bilateral rib fractures. IMPRESSION: 1. Emphysematous change with no active disease in the chest. 2. A right internal jugular central venous catheter is new from previous. ACT 112: Negative or not required by law. Electronically signed by: Dov Weeks M.D. 04/02/2022 12:31 PM
[2022-04-02] MEDS ORDERED: ALBUTEROL HFA 8 GM INHALER INH ONE (12:39)
[2022-04-02 15:12] LABS: HBSAG NON-REACTIVE (NON-REACTIVE); Hepatitis B Core Antibody IgM NON-REACTIVE (NON-REACTIVE); Hepatitis B Surface Ab, Quant <5 mIU/mL (> OR = 10)
[2022-04-02 17:35] LABS: BUN Creatinine Ratio 8.9 (10-20); Calcium 8.4 mg/dl (8.5-10.1); Creatinine Clr Calc Pharmacy 13.4 ml/min; Est GFR (Non-African American) 9.5 ml/min; Potassium 5.1 mmol/L (3.5-5.1)
--- NOTE | 2022-04-02 19:17 | Ultrasound Report ---
BILATERAL LOWER EXTREMITY VENOUS DOPPLER CLINICAL HISTORY: Dyspnea. Evaluate for deep venous thrombus. COMPARISON STUDY: No previous studies for comparison. TECHNIQUE: Sonography of the deep venous system of the bilateral lower extremities was performed. Co mpression and augmentation were evaluated. FINDINGS: The bilateral common femoral, superficial femoral and popliteal veins were compressible. A ugmentation was normal. Flow was shown within the deep calf vessels although calf vessels were subopt imally visualized. IMPRESSION: No evidence of deep venous thrombus within the bilateral lower extremities. ACT 112: Negative or not required by law. Electronically signed by: Jonnie Rand M.D. 04/02/2022 7:15 PM
[2022-04-02] MEDS: TERAZOSIN HCL 5 MG CAP PO SCH (21:18)
--- NOTE | 2022-04-02 22:23 | Hospitalist Progress Note ---
Date of Service April 02, 2022 Assessment & Plan (1) Liver lesion: (2) Elevated LFTs: Plan: Patient presented with abdominal discomfort at his primary care office on 03/26. Found to have right upper quadrant fullness on examination and elevated LFTs CT abdomen shows enlarged liver, heterogeneous and cirrhotic in morphology along with multifocal hepatic metastatic disease. Also found to have mildly enlarged intra peritoneal lymph node. Patient underwent core needle biopsy 03/27 by radiology as per recommendation by Dr. Sandoval and oncology inpatient. 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 Sandoval As per Dr. Sandoval " this is a high-grade neuroendocrine carcinoma, systemic chemotherapy with etoposide and carboplatin would be way to treat. With his poor kidney and liver, not sure he would be able to get or tolerate the treatment. Its Palliative, not curative. If the patient wants treatment, we may need to transfer him to [facility] [place] for possible chemo consideration" Family agreed to go to [place] for chemo therapy continuation Previous hospitalist team discussed the case with oncology in [place] Dr. Taina Farmer Waiting for bed to transfer to [place]. Accepting hospitalist physician Dr. Charlton. CEA -2.0; within normal limit [place] 1919 elevated at 70 alpha-fetoprotein pending GI on board - Plan to obtain triple phase liver MRI/MRCP after kidney function improves (3) Acute kidney failure: Plan: Now dialysis dependent Creatinine peaked to 8.49, baseline 0.[address] abdomen did not show hydronephrosis. Nephrology on board status post dialysis day 2 (4) Elevated uric acid in blood: Plan: Patient received 3 doses of 3 mg rasburicase over last 2 days as per recommendation by oncology and nephrology. 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 SOB Pt said that he feels SOB His oxygen saturation normal on RA CXR showed emphysematous change with no active disease in the chest. Doppler of lower extremity showed no evidence of DVT Echo pending Continue monitor Hypertension BP has been in the low side Continue to hold lisinoprilhydrochlorothiazide Continue monitor BMP BPHcontinue on terazosin. Plan DVT Resumed heparin Full code Disposition Waiting for bed to transfer to [place] Admission and Anticipated Discharge Date Admission Date: March 27, 2022 Subjective Patient seen and examined at bedside. Lying in bed with no acute distress Pt had HD this morning He said that he has been feeling weak and SOB and his friend ( retired neuro surgeon) at bedside were uptaded and answered all questions He denies any chest pain, palpitation, dizziness and fever Review of Systems Review of Systems: All systems reviewed & are unremarkable except as noted in Subjective Physical Exam Physical Exam: General- No acute distress Head- atraumatic Eyes- PERRL, EOMI, ENT- oropharynx clear Neck- supple, no JVD Lungs- diminished BS Heart- regular rhythm; no murmur Abdomen- normal bowel sounds, soft, nontender Extremities- no calf tenderness Neuro- alert, oriented x 3; PERRL, EOMI; no facial palsy; no dysarthria Skin- warm & dry Results & Data Results & Data ([facility]) Vital Signs (Past 12 Hours) Vital Signs Temp Pulse Pulse Pulse Resp BP BP 04/02/22 19:37 36.3 C L 74 16 04/02/22 15:00 68 04/02/22 15:38 36.5 C 56 L 18 91/49 L 04/02/22 15:14 04/02/22 13:55 36.5 C 69 18 83/49 L 04/02/22 12:51 20 04/02/22 12:20 36.5 C 71 04/02/22 12:00 55 L 92/51 L 04/02/22 11:30 67 81/47 L 04/02/22 11:00 68 70/26 L 04/02/22 10:30 68 93/59 L BP Pulse Ox O2 Del Method 04/02/22 19:37 103/62 100 Room Air 04/02/22 15:00 04/02/22 15:38 97 Room Air 04/02/22 15:14 99 Room Air 04/02/22 13:55 04/02/22 12:51 99 Room Air 04/02/22 12:20 88/51 L 04/02/22 12:00 04/02/22 11:30 04/02/22 11:00 04/02/22 10:30
[2022-04-03] MEDS: HEPARIN SOD 5,000 UNIT/0.5 ML VIAL SQ SCH ×4 (01:52→20:21)
[2022-04-03] MEDS: BRIMONIDINE TARTRATE 0.2% 5ML OPB SCH ×2 (07:37→20:12)
[2022-04-03] MEDS: TIMOLOL MALEATE 0.5% OP SOLN 5 ML BTL OPB SCH ×2 (07:37→20:13)
[2022-04-03] MEDS: PANTOprazole 40 MG TAB PO SCH (07:38)
[2022-04-03] MEDS ORDERED: ALBUMIN 25% 12.5 GM/50 ML VIAL IV ONE ×3 (07:39→11:30)
[2022-04-03] MEDS ORDERED: SODIUM CHLORIDE 0.9% 1000ML 1,000 ML IV PRN (07:39)
[2022-04-03 08:18] LABS: Hematocrit (blood only) 33.7 % (40.1-51.0); Hemoglobin 12.4 g/dl (14.0-18.0); Mean Corpuscular Hemoglobin 30.8 pg (25.0-34.0); Mean Corpuscular Hgb Conc 36.8 g/dL (32.0-36.0); Mean Corpuscular Volume 83.6 fL (80.0-100.0); Mean Platelet Volume 10.1 fL (9.4-12.4); Nucleated RBC # (auto) 0.06 K/uL (0-0); Nucleated RBC % (auto) 0.3 %; Platelet Count 190 K/uL (130-400); RDW Coefficient of Variation 19.5 % (11.5-14.5); RDW Standard Deviation 50.4 fL (36.4-46.3); Red Blood Count 4.03 M/uL (4.63-6.08); White Blood Count 17.78 K/ul (4.8-10.8)
[2022-04-03 08:36] LABS: Albumin Globulin Ratio 1.2 (0.9-2); BUN Creatinine Ratio 9.2 (10-20); Calcium 8.3 mg/dl (8.5-10.1); Creatinine Clr Calc Pharmacy 10.9 ml/min; Est GFR (African American) 8.5 ml/min; Est GFR (Non-African American) 7.4 ml/min; Globulin 2.5 gm/dl (2.5-4.0); Total Protein 5.5 gm/dl (6.0-8.3)
[2022-04-03] MEDS: CEFEPIME 1,000 MG in SYRINGE 0 ML IV SCH (12:51)
--- NOTE | 2022-04-03 14:51 | Nephrology Progress Note ---
Date of Service April 03, 2022 Assessment & Plan (1) Acute kidney failure: Plan: now dialysis dependent and anuric -we talked about how dialysis is buying him time, keeping his mind clear and chemistries in range so other bodily functions work reasonably well >> so that he can participate in his care and goals of care; we talked about how he may not be able to tolerate HD longer term depending on how fluid status and BP do and how this is often a problem for liver patients. -for now continue HD; reassess goals of care frequently. if he does do outpatient dialysis wishes to do in center HD at [facility]; home modalities not discussed -- too many other issues right now; could broach in future had HD 3 days in a row > first day 04/01; tolerated reasonably well though c/b asx hypotension -next HD on 04/05 or as needs dictate K 5.0 despite dialysis diet andHD; ? tumor lysis; not hemolyzed; no offending meds >> had HD again today so K should be controlled for now >daily bmp -periodic bladder scans I spent more than 15 minutes w/ pt reviewing his care and discussing above (2) Elevated uric acid in blood: Plan: undetectable 04/01 after 03/31 rasburicase > recheck in AM (3) Dyspnea: Plan: sats are maintained. emphysematous changes on CXR which is clear. TTE/BL dopplers clear ->has now resumed appropriate heparin dosing -monitor >> he is oliguric and did have IV fluids with HD > about 1 L today plus albumin; no albumin and not as much IVF on HD yesterday (4) Neuroendocrine tumor: Plan: awaiting transfer to [facility] [place] for palliative CTX; started on HD before this dx came back >>low threshold for palliative consultation >> today I talked to him about what palliative team does/ how they can help w/ goals of care (5) Hypotension: Plan: no response at all to 5 mg midodrine prior to starting HD 04/03; no response to albumin IV or to IVF on tx, though BP did rebound post tx today. today he had 3 doses IV albumin on tx and had at least 800 mL NS in tx. SBP dropped 04/01 during TDC placement; has never rebounded; no UF w/ any HD txs and has been given IV fluid during tx no culprit medications >> may simply be worsening liver dz no sx w/ lower bp; not floridly overloaded -TTE reassuring; sepsis w/u in process; elevated pro radha noted ?hypovolemia > TTE and CXR are OK; would not give more IVF at this time; bladder scan reassuring >>continue to monitor Admission and Anticipated Discharge Date Admission Date: March 27, 2022 Subjective HD challenging today and shortened d/t hypotension (see below). still feels dyspneic. no uncontrolled pain. minimal UOP and per pt bladder scans negative. lots of questions about prognosis and goals of care and whether dialysis causing dyspnea. Review of Systems Review of Systems: All systems reviewed & are unremarkable except as noted in Subjective Physical Exam Constitutional: well developed, well nourished and cooperative; no acute di stress Eyes: EOM intact bilaterally ENMT: Ears: no external ear abnormality Nose: no external nose abnormality Mouth: + dry oral mucous membranes Neck: no nuchal rigidity Respiratory: normal respiratory effort, + labored breathing (slight) and able to speak in complete sentences (but audible breath between) Auscultation: lungs clear to auscultation bilaterally (on RA; no cough) and + diminished lung sounds Cardiovascular: RRR, no murmur, no edema Gastrointestinal (Abdomen): Inspection/Auscultation: normal bowel sounds Percussion/Palpation: abdomen soft; abdomen nontender Musculoskeletal: Extremities: strength 5/5 throughout Skin: no rashes, warm and dry Neurologic: laura, fluent speech, no tremor Psychiatric: Orientation: alert and oriented x 3 (clearer mentation than 04/01) Results & Data ([facility]) Vital Signs (Past 12 Hours) Vital Signs Temp Pulse Pulse Pulse Resp BP BP 04/03/22 12:15 80 87/42 L 04/03/22 12:00 78 93/43 L 04/03/22 11:45 76 100/45 L 04/03/22 11:30 76 79/40 L 04/03/22 11:04 76 65/46 L 04/03/22 11:15 76 101/46 L 04/03/22 10:45 84 65/38 L 04/03/22 12:21 36.5 C 84 92/49 L 04/03/22 11:00 89 74/38 L 04/03/22 10:30 81 85/36 L 04/03/22 10:00 81 127/44 L 04/03/22 09:30 73 69/41 L 04/03/22 09:15 67 97/51 L 04/03/22 09:45 04/03/22 09:00 36.5 C 67 88/42 L 04/03/22 08:53 36.5 C 69 04/03/22 08:37 36.5 C 70 16 89/49 L 04/03/22 07:01 77 04/03/22 03:11 36.5 C 82 18 100/58 L Pulse Ox O2 Del Method 04/03/22 12:15 04/03/22 12:00 04/03/22 11:45 04/03/22 11:30 04/03/22 11:04 04/03/22 11:15 04/03/22 10:45 04/03/22 12:21 04/03/22 11:00 04/03/22 10:30 04/03/22 10:00 04/03/22 09:30 04/03/22 09:15 04/03/22 09:45 Room Air 04/03/22 09:00 04/03/22 08:53 04/03/22 08:37 98 Room Air 04/03/22 07:01 04/03/22 03:11 95 Room Air Laboratory Results 04/03/22 07:46 04/03/22 07:46
[2022-04-03] MEDS ORDERED: NYSTATIN POWDER 15GM BTL EXT PRN (18:35)
--- NOTE | 2022-04-03 21:19 | Hospitalist Progress Note ---
Date of Service April 03, 2022 Assessment & Plan (1) Liver lesion: (2) Elevated LFTs: Plan: Patient presented with abdominal discomfort at his primary care office on 03/26. Found to have right upper quadrant fullness on examination and elevated LFTs CT abdomen shows enlarged liver, heterogeneous and cirrhotic in morphology along with multifocal hepatic metastatic disease. Also found to have mildly enlarged intra peritoneal lymph node. Patient underwent core needle biopsy 03/27 by radiology as per recommendation by Dr. Sandoval and oncology inpatient. 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 Sandoval As per Dr. Sandoval " this is a high-grade neuroendocrine carcinoma, systemic chemotherapy with etoposide and carboplatin would be way to treat. With his poor kidney and liver, not sure he would be able to get or tolerate the treatment. Its Palliative, not curative. If the patient wants treatment, we may need to transfer him to [facility] [place] for possible chemo consideration" Family agreed to go to [place] for chemo therapy continuation Previous hospitalist team discussed the case with oncology in [place] Dr. Taina Farmer Waiting for bed to transfer to [place]. Accepting hospitalist physician Dr. Charlton. CEA -2.0; within normal limit [place] 1919 elevated at 70 alpha-fetoprotein pending LFT trending up with AST 292 and ALT 101 GI on board - Plan to obtain triple phase liver MRI/MRCP after kidney function improves (3) Acute kidney failure: Plan: Now dialysis dependent Creatinine 6.5 today, baseline 0.[address] abdomen did not show hydronephrosis. Nephrology on board Pt was dialyzed today #3 (4) Elevated uric acid in blood: Plan: Patient received 3 doses of 3 mg rasburicase over last 2 days as per recommendation by oncology and nephrology. 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 SOB Pt said that he feels SOB His oxygen saturation normal on RA CXR showed emphysematous change with no active disease in the chest. Doppler of lower extremity showed no evidence of DVT Echo showed no LV wall motion abnormality. LV is hyperdynamic. EF greater than 70% Continue monitor Elevated WBC Elevated procalcitonin Blood cx pending Started on IV cefepime x 48hr until cx result if blood cx negative, will consider to discontinue abx Hypertension BP has been in the low side Continue to hold lisinoprilhydrochlorothiazide Continue monitor BMP BPHcontinue on terazosin. Plan DVT On heparin Full code Disposition Waiting for bed to transfer to [place] Admission and Anticipated Discharge Date Admission Date: March 27, 2022 Subjective Patient seen and examined at bedside. Lying in bed with no acute distress Pt had HD this morning He said that his breathing feels the same He said that he does not have any energy to do anything I called 3 times on the phone and spoke to her once wanted me to check for bed available at [facility] I called the transfer service at [facility], there are 40 people that are waiting for beds and 104 patient in the ER right now Transfer service said that it will take a few days before the patient will be able to transfer to [place] He denies any chest pain, palpitation, dizziness and fever Review of Systems Review of Systems: All systems reviewed & are unremarkable except as noted in Subjective Physical Exam Physical Exam: General- No acute distress Head- atraumatic Eyes- PERRL, EOMI, ENT- oropharynx clear Neck- supple, no JVD Lungs- diminished BS Heart- regular rhythm; no murmur Abdomen- normal bowel sounds, soft, nontender Extremities- no calf tenderness, +edema Neuro- alert, oriented x 3; PERRL, EOMI; no facial palsy; no dysarthria Skin- warm & dry Results & Data Results & Data ([facility]) Vital Signs (Past 12 Hours) Vital Signs Temp Pulse Pulse Pulse Pulse Resp BP 04/03/22 19:00 36.5 C 74 18 04/03/22 20:00 04/03/22 16:15 86 04/03/22 15:36 36.4 C L 86 18 04/03/22 12:15 80 87/42 L 04/03/22 12:00 78 93/43 L 04/03/22 11:45 76 100/45 L 04/03/22 11:30 76 79/40 L 04/03/22 11:04 76 65/46 L 04/03/22 11:15 76 101/46 L 04/03/22 10:45 84 65/38 L 04/03/22 12:21 36.5 C 84 04/03/22 11:00 89 74/38 L 04/03/22 10:30 81 85/36 L 04/03/22 10:00 81 127/44 L 04/03/22 09:30 73 69/41 L 04/03/22 09:15 67 97/51 L 04/03/22 09:45 BP BP Pulse Ox O2 Del Method 04/03/22 19:00 91/51 L 99/62 L 98 Room Air 04/03/22 20:00 Room Air 04/03/22 16:15 04/03/22 15:36 113/64 97 Room Air 04/03/22 12:15 04/03/22 12:00 04/03/22 11:45 04/03/22 11:30 04/03/22 11:04 04/03/22 11:15 04/03/22 10:45 04/03/22 12:21 92/49 L 04/03/22 11:00 04/03/22 10:30 04/03/22 10:00 04/03/22 09:30 04/03/22 09:15 04/03/22 09:45 Room Air
--- NOTE | 2022-04-03 21:31 | Communication Note ---
Date of Service: April 03, 2022 Notified by RN of SBP 90s. Patient asymptomatic as per RN. SBP 60s to 120s last 24 hours. Hold terazosin for now.
[2022-04-04] MEDS: HEPARIN SOD 5,000 UNIT/0.5 ML VIAL SQ SCH ×3 (05:34→22:05)
[2022-04-04 06:36] LABS: Hemoglobin 10.8 g/dl (14.0-18.0); Mean Corpuscular Hemoglobin 31.4 pg (25.0-34.0); Mean Corpuscular Hgb Conc 37.2 g/dL (32.0-36.0); Mean Corpuscular Volume 84.3 fL (80.0-100.0); Mean Platelet Volume 9.9 fL (9.4-12.4); Nucleated RBC # (auto) 0.08 K/uL (0-0); Nucleated RBC % (auto) 0.5 %; Platelet Count 143 K/uL (130-400); RDW Coefficient of Variation 19.7 % (11.5-14.5); RDW Standard Deviation 51.5 fL (36.4-46.3); Red Blood Count 3.44 M/uL (4.63-6.08); White Blood Count 16.41 K/ul (4.8-10.8)
[2022-04-04 07:04] LABS: Albumin Globulin Ratio 1.4 (0.9-2); Albumin Level 2.8 gm/dl (3.4-5.0); BUN Creatinine Ratio 7.6 (10-20); Bilirubin,Total 7.6 mg/dl (0.2-1.0); Calcium 7.9 mg/dl (8.5-10.1); Est GFR (African American) 11.4 ml/min; Est GFR (Non-African American) 9.8 ml/min; Potassium 4.3 mmol/L (3.5-5.1); Total Protein 4.8 gm/dl (6.0-8.3)
--- NOTE | 2022-04-04 08:30 | Nephrology Progress Note ---
Date of Service April 04, 2022 Assessment & Plan (1) Acute kidney failure: Plan: now dialysis dependent and anuric -we talked about how dialysis is buying him time, keeping his mind clear and chemistries in range so other bodily functions work reasonably well >> so that he can participate in his care and goals of care; we talked about how he may not be able to tolerate HD longer term depending on how fluid status and BP do and how this is often a problem for liver patients. -for now continue HD; reassess goals of care frequently. if he does do outpatient dialysis wishes to do in center HD at [facility]; home modalities not discussed -- too many other issues right now; could broach in future had HD 3 days in a row > first day 04/01; tolerated reasonably well though c/b asx hypotension -next HD on 04/05 or as needs dictate K appropriate w/ HD >daily bmp -periodic bladder scans (2) Elevated uric acid in blood: Plan: undetectable 04/01 after 03/31 rasburicase > uric acid 2 today (3) Dyspnea: Plan: sats are maintained. emphysematous changes on CXR which is clear. TTE/BL dopplers clear ->has now resumed appropriate heparin dosing -monitor >> he is anuric and did have IV fluids with HD> low threshold to repeat CXR if worsening (4) Neuroendocrine tumor: Plan: awaiting [place] [facility] [place]; started on HD before this dx came back >>low threshold for palliative consultation >> on 04/03 I talked to him about what palliative team does/ how they can help w/ goals of care (5) Hypotension: Plan: no response at all to 5 mg midodrine prior to starting HD 04/03; no response to albumin IV or to IVF on tx, though BP did rebound post tx today. today he had 3 doses IV albumin on tx and had at least 800 mL NS in tx. SBP dropped 04/01 during TDC placement; has never rebounded; no UF w/ any HD txs and has been given IV fluid during tx no culprit medications >> may simply be worsening liver dz no sx w/ lower bp; not floridly overloaded -TTE reassuring; sepsis w/u in process; elevated pro radha noted ?hypovolemia > TTE and CXR are OK; would not give more IVF at this time; bladder scan reassuring >>continue to monitor but improved today Admission and Anticipated Discharge Date Admission Date: March 27, 2022 Subjective started on 02NC overnight though no documented lower sats; feels 02 helps breathing speech. at bedside; feels he's mentating better. for [facility] transfer Review of Systems Review of Systems: All systems reviewed & are unremarkable except as noted in Subjective Physical Exam Constitutional: well developed, well nourished and cooperative; no acute distress Eyes: EOM intact bilaterally ENMT: Ears: no external ear abnormality Nose: no external nose abnormality Mouth: + dry oral mucous membranes Neck: no nuchal rigidity Respiratory: normal respiratory effort and able to speak in complete sentences (but audible breath between) Auscultation: lungs clear to auscultation bilaterally (on RA; no cough) and + diminished lung sounds Cardiovascular: RRR, no murmur, no edema Gastrointestinal (Abdomen): Inspection/Auscultation: normal bowel sounds Percussion/Palpation: abdomen soft; abdomen nontender Musculoskeletal: Extremities: strength 5/5 throughout Skin: no rashes, warm and dry Psychiatric: Orientation: alert and oriented x 3 (clearer mentation than 04/01) Results & Data ([facility]) Vital Signs (Past 12 Hours) Vital Signs Temp Pulse Pulse Resp BP BP Pulse Ox 04/04/22 03:06 36.4 C L 92 H 18 103/57 L 98 04/03/22 23:49 36.5 C 85 18 109/65 99 04/03/22 23:23 87 04/03/22 22:56 36.7 C 83 20 101/55 L 86/46 L 96 O2 Del Method O2 Flow Rate 04/04/22 03:06 Nasal Cannula 2 04/03/22 23:49 Room Air 04/03/22 23:23 04/03/22 22:56 Room Air Laboratory Results 04/04/22 06:19 04/04/22 06:19
[2022-04-04] MEDS: TIMOLOL MALEATE 0.5% OP SOLN 5 ML BTL OPB SCH ×2 (09:05→20:06)
[2022-04-04] MEDS: BRIMONIDINE TARTRATE 0.2% 5ML OPB SCH ×2 (09:07→20:06)
[2022-04-04] MEDS: PANTOprazole 40 MG TAB PO SCH (09:07)
[2022-04-04] MEDS: CEFEPIME 1,000 MG in SYRINGE 0 ML IV SCH (13:30)
--- NOTE | 2022-04-04 16:12 | Hospitalist Progress Note ---
Date of Service April 04, 2022 Assessment & Plan (1) Liver lesion: (2) Elevated LFTs: Plan: Patient presented with abdominal discomfort at his primary care office on 03/26. Found to have right upper quadrant fullness on examination and elevated LFTs CT abdomen shows enlarged liver, heterogeneous and cirrhotic in morphology along with multifocal hepatic metastatic disease. Also found to have mildly enlarged intra peritoneal lymph node. Patient underwent core needle biopsy 03/27 by radiology as per recommendation by Dr. Sandoval and oncology inpatient. 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 Sandoval As per Dr. Sandoval " this is a high-grade neuroendocrine carcinoma, systemic chemotherapy with etoposide and carboplatin would be way to treat. With his poor kidney and liver, not sure he would be able to get or tolerate the treatment. Its Palliative, not curative. If the patient wants treatment, we may need to transfer him to [facility] [place] for possible chemo consideration" Family agreed to go to [place] for chemo therapy continuation Previous hospitalist team discussed the case with oncology in [place] Dr. Taina Farmer Waiting for bed to transfer to [place]. Accepting hospitalist physician Dr. Charlton. Spoke to Dr. Santos at [facility] that accepted the patient- waiting for bed also CEA -2.0; within normal limit [place] 1919 elevated at 70 alpha-fetoprotein pending LFT trending up with AST 265 and ALT 79 GI on board - Plan to obtain triple phase liver MRI/MRCP after kidney function improves (3) Acute kidney failure: Plan: Now dialysis dependent Creatinine 5.12 today, baseline 0.[address] abdomen did not show hydronephrosis. Nephrology on board Pt was dialyzed today #3 (4) Elevated uric acid in blood: Plan: Patient received 3 doses of 3 mg rasburicase over last 2 days as per recommendation by oncology and nephrology. 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 SOB Pt said that he feels SOB His oxygen saturation normal on RA CXR showed emphysematous change with no active disease in the chest. Doppler of lower extremity showed no evidence of DVT Echo showed no LV wall motion abnormality. LV is hyperdynamic. EF greater than 70% Continue monitor Elevated WBC Elevated procalcitonin Blood cx no growth so far Started on IV cefepime x 48hr until cx result if blood cx negative, will consider to discontinue abx Hypertension BP has been in the low side Continue to hold lisinoprilhydrochlorothiazide Continue monitor BMP BPHcontinue on terazosin. Plan DVT On heparin Full code Disposition Waiting for bed to transfer to [place] or [facility] Admission and Anticipated Discharge Date Admission Date: March 27, 2022 Subjective Pt was seen and examined for follow Lying in bed with no acute distress I spoke to Dr. Santos (head of oncology at [facility]), he accepted him to transfer to [facility] notified, but we continued to wait for bed Review of Systems Review of Systems: All systems reviewed & are unremarkable except as noted in Subjective Physical Exam Physical Exam: General- No acute distress Head- atraumatic Eyes- PERRL, EOMI, ENT- oropharynx clear Neck- supple, no JVD Lungs- diminished BS Heart- regular rhythm; no murmur Abdomen- normal bowel sounds, soft, nontender Extremities- no calf tenderness, +edema Neuro- alert, oriented x 3; PERRL, EOMI; no facial palsy; no dysarthria Skin- warm & dry Results & Data Results & Data ([facility]) Vital Signs (Past 12 Hours) Vital Signs Temp Pulse Pulse Resp BP BP Pulse Ox 04/04/22 14:02 87 04/04/22 15:00 88/43 L 108/65 04/04/22 09:00 04/04/22 11:17 36.5 C 80 16 85/51 L 98 O2 Del Method 04/04/22 14:02 04/04/22 15:00 04/04/22 09:00 Room Air 04/04/22 11:17 Room Air
== END 2022-04-04 22:52 | disposition short-term general hospital (02) | DRG 843 ==
LOC: ED 03:13 → 2W 06:44 → SUATTDRO 06:44 → 2W 10:18 → 2E 03-30 14:27 → 2N 04-01 16:54